=== PATIENT | male | born 1935 | race Caucasian/White ===

== ENCOUNTER → 2019-01-20 | Outpatient (CLI) | payer MEDICARE, OTHER ==
[~2019-01-20] MED LIST: ASPI-630 PO; CARV25TA2 PO; CRESTOR40 MG PO; CYCL10TA2 PO; EZET10TA20 PO; HYDR-2765 PO; LEVO75TA PO; MULT1TAB52 PO; OMEG-57 PO; RANO500T2 PO; UBID50TA PO; VALS160T3 PO; ZINC10LO4 PO
[2019-01-20 16:00] LABS: BASO % 0 % (0-3); EOS # 0.1 x10^3/uL (0.0-0.7); EOS % 2 % (0-3); HEMATOCRIT 38.7 % (39.0-53.0); HEMOGLOBIN 13.2 g/dL (13.0-17.5); LYMPH # 2.1 x10^3/uL (1.0-4.8); LYMPH % 27 % (24-48); MEAN CORPUSCULAR HEMOGLOBIN 34 pg (25-35); MEAN CORPUSCULAR HGB CONC 34 g/dL (31-37); MEAN CORPUSCULAR VOLUME 100 fL (79-100); MONO % 13 % (0-9); NEUT # 4.5 x10^3/uL (1.8-7.7); NEUT % 59 % (31-73); PLATELET COUNT 235 x10^3/uL (140-400); RED BLOOD COUNT 3.87 x10^6/uL (4.30-5.70); RED CELL DISTRIBUTION WIDTH 12.8 % (11.5-14.5); WHITE BLOOD COUNT 7.8 x10^3/uL (4.0-11.0)
[2019-01-20 16:26] LABS: ALBUMIN 2.4 g/dL (3.4-5.0); ALBUMIN/GLOBULIN RATIO 0.7 (1.0-1.7); CALCIUM 9.1 mg/dL (8.5-10.1); CREATININE 1.9 mg/dL (0.7-1.3); GFR 33.9; POTASSIUM 5.2 mmol/L (3.5-5.1); TOTAL BILIRUBIN 0.2 mg/dL (0.2-1.0); TOTAL PROTEIN 5.9 g/dL (6.4-8.2)
== END | disposition home or self-care (01) ==
LOC: SURGPAT 13:24
PROVIDERS: ATTEND Neurological Surgery
DX: Z01.818 Encounter for other preprocedural examination (principal); M51.16 Intervertebral disc disorders with radiculopathy, lumbar region; M48.061 Spinal stenosis, lumbar region without neurogenic claudication
CPT/HCPCS: 36415; 80053; 82306; 85025; 87641

== ENCOUNTER 2019-01-24 07:11 | Day surgery (SDC) | payer MEDICARE, OTHER ==
--- NOTE | 2019-01-23 15:06 | PREOP HP ---
DATE OF SERVICE: 01/24/2019. DATE OF SURGERY: 01/24/2019. HISTORY OF PRESENT ILLNESS: The patient is a pleasant 84-year-old who has problems with low back pain and pain which can radiate to his left anterior thigh and knee. The problem began in 08/2018 spontaneously. He has had epidural steroid injections recently and that helped him with his pain temporarily. He notices weakness in his left leg and is having difficulty with walking. Sitting does help him. He is taking Tylenol recently for pain. There is no problem on the right side. PAST MEDICAL HISTORY: Arthritis, artificial knees, cold sores and fever blisters, hypertension, kidney problems, swelling of the limbs. PAST SURGICAL HISTORY: Shoulder surgery 2000, knee replacement in 2004, cardiac catheterization with 4 stents in 2008, eye surgery in 2009, appendectomy in 1950, and cataract surgery. FAMILY HISTORY: Noncontributory. SOCIAL HISTORY: Retired. . Denies substance abuse. Current tobacco use. Denies alcohol consumption. ALLERGIES: No known drug allergies. CURRENT MEDICATIONS: Carvedilol, Crestor, Ranexa, losartan, levothyroxine, aspirin, fish oil, B12, CoQ10, zinc, Centrum, health formula glucosamine, and Tylenol. REVIEW OF SYSTEMS: A 12-point review of systems was obtained and is noncontributory except for that mentioned above. PHYSICAL EXAMINATION: NEUROSURGERY EXAMINATION: GENERAL APPEARANCE: Alert, pleasant, no acute distress. HEAD: Normocephalic, atraumatic. SKIN: Warm and dry. MUSCULOSKELETAL: Lumbar paraspinal muscle bulk is normal, restricted range of motion of lumbar spine, dhdz-pq-lsnnorvr tenderness of lower lumbar spine with palpation, normal range of motion of the lower extremities bilaterally. EXTREMITIES: No clubbing, cyanosis or edema. NEUROLOGIC: Alert and oriented x 3, normal recent and remote memory. Strength 5/5 in bilateral lower extremities except for 4+/5, left quadriceps, sensory was intact to light touch in bilateral lower extremities except for decrease in light touch involving the distal anterior thigh and knee on the left. Reflexes are trace and symmetric in lower extremities bilaterally, negative straight leg raising bilaterally, normal gait. IMAGING: I reviewed a lumbar MRI scan. On that study at L2-L3, there is a large disc bulge with left-sided disc protrusion and impingement of the left L3 nerve root. At L4-L5, there was spinal stenosis from disc bulging combined with facet arthropathy and thickening of the ligamentum flavum. ASSESSMENT: 1. Intervertebral disc disorder with radiculopathy, lumbar region. 2. Spinal stenosis, lumbar region with neurogenic claudication. PLAN: The patient has 2 levels of disease. I believe the problems at L2-L3 are most significant. At this point, my recommendation for surgery would be a left direct laminectomy, microdiscectomy at L2-L3 and a left laminectomy at L4-L5. I explained that to him. I also explained the risks of the surgery. I explained the postoperative period. He would like to go ahead. We will make the arrangements. ELOY GIBBS MD DR: TAYO/mukesh JOB#: [id number] / [id number] HEATHER
[~2019-01-24] VITALS: Ht 170.2 cm; Wt 80.9 kg
[~2019-01-24 07:11] MED LIST changes: +BACITRACIN 50,000 UNIT in IV NORMAL SALINE 1000ML BAG 1,000 ML IRR ONE; +BUPIVACAINE-EPI 0.5%-1:200000 MPF 30 ML VIAL. INJ ONE; +GELATIN SPONGE SIZE 100. ONE; +HYDROmorphone 2 MG/ML VIAL IV PRN; +IV RINGERS,LACTATED 1000ML 1,000 ML IV SCH; +KETOROLAC 60 MG/2 ML VIAL. ONE; +LIDOCAINE 1% PF 2 ML VIAL. ID PRN; +MORPHINE SULFATE 2 MG/ML VIAL. IV PRN; +ONDANSETRON PF 4 MG/2 ML VIAL. IV PRN; +PROCHLORPERAZINE 10 MG/2 ML VIAL. IV PRN; +THROMBIN TOPICAL 20,000 UNIT SPRAY.SYRN KIT TP ONE; +fentaNYL PF VIAL 100 MCG/2 ML VIAL IV PRN
[2019-01-24] MEDS ORDERED: DEXAMETHASONE SOD PHOS 20 MG/5 ML VIAL. ONE (08:02)
[2019-01-24] MEDS ORDERED: LIDOCAINE 2% PF 5 ML VIAL. ONE (08:02)
[2019-01-24] MEDS ORDERED: PROPOFOL 50 ML IV ONE ×2 (08:02→10:09)
[2019-01-24] MEDS ORDERED: ONDANSETRON PF 4 MG/2 ML VIAL. ONE (08:02)
[2019-01-24] MEDS ORDERED: ROCURONIUM 50 MG/5 ML VIAL. ONE (08:02)
[2019-01-24] MEDS ORDERED: fentaNYL PF VIAL 100 MCG/2 ML VIAL ONE (08:02)
[2019-01-24] MEDS ORDERED: REMIFENTANIL 2 MG VIAL. IV ONE (08:02)
[2019-01-24] MEDS ORDERED: PROPOFOL 20 ML IV ONE (08:02)
[2019-01-24] MEDS ORDERED: PHENYLEPHRINE 10 MG/ML VIAL. ONE ×2 (08:03→09:48)
[2019-01-24] MEDS ORDERED: GLYCOPYRROLATE 1 MG/5 ML VIAL. ONE (09:25)
[2019-01-24] MEDS ORDERED: NEOSTIGMINE METHYLSULFATE 5 MG/5 ML SYRINGE. ONE (11:02)
[2019-01-24] MEDS ORDERED: ePHEDrine PF IN SALINE 50 MG/10 ML SYRINGE. IV ONE (11:03)
[2019-01-24] MEDS ORDERED: DESFLURANE > 120 MINUTES IH ONE (11:03)
--- NOTE | 2019-01-24 11:38 | DISCH ---
DISCHARGE INSTRUCTIONS Condition on Discharge Condition on Discharge: Stable Activity After Discharge Activity Instructions for Disc: Activity as tolerated, Avoid exertion Other activity instructions: no driving for a week Bathing Instructions: Shower-keep dressing dry Lifting Instructions after Dis: No heavy lifting, No pulling or pushing, Do not lift >10 pounds Diet after Discharge Additional Diet Restrictions: resume home diet Wound Incision Care Other wound/incision instructi: may remove dressing in 48 hours if dry then may shower, no soaking Contacting the DRSukhjinder after DC Call your doctor for: Concerns you may have Follow-Up Follow up with: Dr. Gibbs's nurse in 2 weeks [phone] ELOY GIBBS MD Jan 24, 2019 11:37
--- NOTE | 2019-01-24 11:43 | OP ---
DATE OF SURGERY: 01/24/2019 PREOPERATIVE DIAGNOSES: 1. Herniated nucleus pulposus, left L2-L3 with left lumbar radiculopathy and stenosis. 2. Lumbar spinal stenosis, L4-L5. FINDINGS: At L2-L3, there was stenosis and a moderately large herniated disc on the left, which was removed at L4-L5, in addition to the stenosis that would be a left direct approach. There was a large bulging soft disc and this required a generous discectomy to fully decompress. OPERATION PERFORMED: 1. Hemilaminotomy and microdiscectomy with decompression of dura and nerve root, L2-L3. 1. Left direct laminectomy with lumbar microdiscectomy, L4-L5. The operation was done with EMG monitoring, SSEP monitoring, fluoroscopy, microscopic dissection. SURGEON: Scar Gibbs M.D. CONTRACT NEGOTIATOR: DAYTON Murcia assisted with the surgery. She assisted with the exposure, the 2-level decompression and discectomy as well as the closure. OPERATIVE INDICATIONS: The patient is a pleasant 84-year-old who developed intractable back and primarily left lower extremity pain. On imaging studies, he had above-mentioned findings and I recommended lumbar microsurgery. I spoke about surgery, the risks, technique and expected postoperative course and he wished to go ahead. DESCRIPTION OF PROCEDURE: Following general endotracheal anesthesia, the patient was positioned prone on the Sonny table. Lumbar region prepped and draped in standard fashion. NATHALIA hose and AV impulse boots were applied for DVT prophylaxis. The microscope was draped. Fluoroscopy was draped and brought into field. Monitoring was established. Ancef 2 grams was given less than 1 hour prior to initiation of surgery. Using fluoroscopic guidance, incision was made over the L2-L3 interspace. I dissected down through skin and subcutaneous tissue. I placed a [place]ley micro disc retractor, brought in the microscope. Using the high-speed air drill, I burred down a generous hemilaminotomy and then gently retracted the root. We then trimmed away thickened ligamentum flavum and performed a partial foraminotomy. I then gently retracted the root medially. There was a large herniated disc beneath the ligament and I teased back and removed multiple disc fragments and then entered the disc space and removed further disc and fully decompressed the entire region. At this point, then I did coagulate a few epidural veins. There was a small amount of bone wax and overall, the hemostasis was excellent. I irrigated copiously and then moved down to L4-L5 in a similar fashion. After confirming my positions, I placed a microdisk retractor. I used the microscope extensively and microscopic technique, I burred down a very generous hemilaminotomy, tilted the patient away from me and drilled across the midline and then trimmed away very thickened ligamentum flavum from medial to lateral and performed a generous partial foraminotomy. The dura was very well decompressed. However, when I retracted the root medially. There was a large bulging disc, which was quite soft and I incised the ligament annulus and performed a discectomy with pituitary rongeurs and as I worked, the region became much better decompressed. I did coagulate a few epidural veins. I irrigated copiously with antibiotic solution. There were no retained fragments. I felt that I had an excellent decompression at this level. I removed the retractor, obtained hemostasis in the muscle and then after irrigating closed the wound in layers with absorbable sutures. The skin was closed with 4-0 subcuticular stitch. At L2-L3, I irrigated copiously and closed the wound with absorbable sutures. After assuring myself of perfect hemostasis, skin was closed with 4-0 subcuticular stitch. The operation went very well and I was quite pleased with the surgery. SCAR GIBBS MD DR: TAYO/mukesh JOB#: [id number] / [id number] HEATHER
[2019-01-24 12:20] VITALS: BP 91/65
[2019-01-24] MEDS ORDERED: HYDROcodone/APAP 7.5/325MG 1 TAB TABLET PO ONE (12:30)
--- NOTE | 2019-01-28 11:07 | PATHOLOGY ---
[facility] Accession Number: [id number] . 01 Material submitted: . vertebral column - LUMBAR DISC AND DECOMPRESSION . 01 Clinical history: . Lumbar herniated disc with radiculopathy, stenosis . 02 Diagnosis: Lumbar disc: - Bone and fibrocartilage with degenerative change and calcification. - Negative for malignancy. ([place] [place] . Co-review: Dr. Supa TERRY 01/28/2019 1047 Local . 02 Electronically signed: . Kevon Emmanuel MD, Pathologist NPI- [id number] . 01 Gross description: . The specimen is received in formalin, labeled "Jean Lee, lumbar disc and decompression". Received are multiple segments of pink-garcia fibrous soft tissue measuring 6.2 x 5.8 x 0.9 cm in aggregate dimensions. The specimen is submitted representatively in cassette A1. ([facility]; 01/26/2019) QA/[facility] 01/26/2019 0959 Local . 02 Pathologist provided ICD-10: M51.16 . 02 CPT . 617421 Specimen Comment: A courtesy copy of this report has been sent to Specimen Comment: [phone], . Specimen Comment: Report sent to / DR WONG Performed at: 01 [facility] [address], [place], [place] [id number] MD Nirmal Langford MD Phone: [phone] Performed at: 02 [facility] [address], [place], [place] [id number] MD Jennifer Zamora MD Phone: [phone]
== END 2019-01-24 13:50 | disposition home or self-care (01) ==
LOC: SURG 07:11
PROVIDERS: ATTEND Neurological Surgery
DX: M51.16 Intervertebral disc disorders with radiculopathy, lumbar region (principal); M48.061 Spinal stenosis, lumbar region without neurogenic claudication; I10 Essential (primary) hypertension; Z96.659 Presence of unspecified artificial knee joint; Z98.890 Other specified postprocedural states; Z98.49 Cataract extraction status, unspecified eye; Z96.1 Presence of intraocular lens
CPT/HCPCS: 63030; 63035; 88304; 97116; 97162; 97530; A7015; J0171; J1100; J1885; J2001; J2405; J2704; J2710; J3010; J3490; J7030; 76000

== ENCOUNTER → 2019-06-27 | Outpatient (CLI) | payer MEDICARE, OTHER ==
[~2019-06-27] MED LIST changes: -BACITRACIN 50,000 UNIT in IV NORMAL SALINE 1000ML BAG 1,000 ML IRR ONE; -BUPIVACAINE-EPI 0.5%-1:200000 MPF 30 ML VIAL. INJ ONE; -GELATIN SPONGE SIZE 100. ONE; -HYDROmorphone 2 MG/ML VIAL IV PRN; -IV RINGERS,LACTATED 1000ML 1,000 ML IV SCH; -KETOROLAC 60 MG/2 ML VIAL. ONE; -LIDOCAINE 1% PF 2 ML VIAL. ID PRN; -MORPHINE SULFATE 2 MG/ML VIAL. IV PRN; -ONDANSETRON PF 4 MG/2 ML VIAL. IV PRN; -PROCHLORPERAZINE 10 MG/2 ML VIAL. IV PRN; -THROMBIN TOPICAL 20,000 UNIT SPRAY.SYRN KIT TP ONE; -fentaNYL PF VIAL 100 MCG/2 ML VIAL IV PRN
--- NOTE | 2019-06-27 13:41 | KCIC ---
MRI Lumbar Spine without contrast History: Lumbar radiculopathy, low back pain for a week, left radiculopathy, previous surgery Technique: Multiplanar, multi sequential noncontrast MR imaging was performed of the lumbar spine. Comparison: April 21, 2013 Findings: Lumbar vertebral body stature is unchanged other than more prominent inferior Schmorl's node L2, inferior L1 Schmorl's node similar in appearance. There is again advanced L5-S1 degenerative disc disease, advanced L4-5 degenerative disc disease somewhat increased in interval. There is dljt-ek-vwiakgtf degenerative disease at L1-L2 and to lesser degree at L2-3, minimally at L3-4. There is new inferior L2 endplate edema about Schmorl's node. There is degenerative endplate change at L5-S1, L4-5, and inferiorly of L1. Conus terminates at the superior aspect of what is considered T12. There is nonspecific edema of the posterior paraspinous soft tissues of the left abdomen in the subcutaneous fat. There is no significant fluid in the intervertebral disc spaces. There is amorphous, nonspecific edema of the posterior L5 vertebral body, although previously seen L5-S1 endplate edema has decreased. There is minimal posterior subluxation L5 relative to S1 as seen previously. There is infrarenal abdominal aortic aneurysm about 3.2 cm, fairly similar. There is small T2 hyperintense lesion left kidney about 0.8 cm, statistically most likely a cyst. T11-T12: This level was not included on the axial images. There is a very shallow posterior protrusion. There is facet degenerative change. There is mild attenuation of the thecal sac. T12-L1: This level was not included on the axial images. There is facet degenerative change. Spinal canal and the neural foramina are overall adequate. L1-L2: There is again minimal disc osteophyte complex and bulge. There is mild prominence of posterior epidural fat centrally, mild buckling of the ligamentum flavum, and nkln-mi-amcbfpso facet degenerative change. There is similar minimal narrowing of the left lateral recess from posteriorly. There is mild narrowing of the left neural foramen, right neural foramen adequate. L2-L3: There is now left laminectomy defect. There is again facet hypertrophic change. There is again moderate to severe buckling of the right ligamentum flavum. There is again broad disc osteophyte complex. There is residual mild to moderate narrowing of the right lateral recess from posteriorly, left lateral recess now overall adequate. Neural foramina are overall adequate. L3-L4: There is again rjim-rj-ttnmqujt facet degenerative change and buckling of the ligamentum flavum. There is again disc osteophyte complex and bulge. There is posterior annular tear. There is similar very mild narrowing of the far left lateral recess. There is minimal narrowing of the inferior distal left neural foramen by disc osteophyte complex, right neural foramen overall adequate. L4-L5: There is now broad left laminectomy defect, small fluid collection at site of laminectomy about 0.7 x 0.2 cm axial oblique dimensions by 0.7 cm cc. There is again facet hypertrophic change. There is mild buckling of the right ligamentum flavum. While overall central canal is now adequate, there is increased signal abnormality in the far left lateral recess presumably due to protrusion/contained extrusion superimposed on disc osteophyte complex, estimated about 0.8 cm AP by 0.8 cm CC by 0.8 cm transverse best seen sagittal images 5 and axial image 25. There is resultant severe left lateral recess stenosis and impingement and posterior displacement of the descending left L5 nerve root. Disc osteophyte complex and facet contributes to moderate to severe left and severe right neural foramina compromise, contact of the exiting L4 nerve roots greater on the right. There is also contact of the proximal extraforaminal right L4 nerve root. L5-S1: There is again disc osteophyte complex superimposed on the posteriorly subluxed L5 vertebral body margin, no significant displacement of the descending S1 nerve roots. There is again prominence of epidural fat in the lateral recesses bilaterally with preserved central subarachnoid space. There is mild bilateral facet degenerative change. There is again fairly severe neural foramina compromise bilaterally, greater distally on the left. Disc osteophyte complex contacts the undersurfaces of the exiting L5 nerve roots bilaterally somewhat greater on the right, also near the extraforaminal L5 nerve roots. Impression: 1. Comparing with the previous 2013 exam, there are now left laminectomy defects L2-3 and L4-5. There is focus of signal abnormality in the left lateral recess at L4-5 likely due to protrusion/contained extrusion with posterior displacement of the descending left L5 nerve root. There is zhca-ft-chqfcigu right lateral recess stenosis at L2-3 and very mild left lateral recess stenosis at L3-4 as described. 2. There is multilevel lumbar degenerative disc disease greatest at L4-5 and L5-S1. There is more prominent, somewhat edematous inferior L2 Schmorl's node. 3. There is multilevel lumbar neural foramina compromise, more significant narrowing bilaterally at L5-S1 and L4-5. 4. There is mild aneurysmal dilatation of the infrarenal abdominal aorta, estimated about 3.2 cm. Electronically signed by: Jered Tom MD (06/27/2019 1:38 PM) [facility]
--- NOTE | 2019-06-27 16:09 | KCIC ---
L-spine 2 views INDICATION: Lumbar radiculopathy on the left. COMPARISON: L-spine MRI of April 21, 2013 and June 27, 2019 FINDINGS: Flexion and extension views of the lumbar spine in the lateral projection show straightened lumbar spine without evidence of abnormal motion. Very subtle retrolisthesis of L3 on L4 is suggested that does not change with flexion or extension. Bones are osteopenic but no acute fractures or aggressive osseous lesions are seen. The discs show multilevel narrowing most conspicuous at L4-L5 and L5-S1. Bulky facet hypertrophic changes are present at multiple levels, likely resulting in varying degrees of foraminal narrowing. Soft tissues show arterial calcifications in the abdominal aorta. IMPRESSION: No evidence of abnormal motion with flexion or extension in the lumbar spine with multilevel degenerative changes noted. Electronically signed by: Ellie Cash MD (06/27/2019 4:06 PM) [id number]
== END | disposition home or self-care (01) ==
LOC: KCIC MRI 11:43
PROVIDERS: ATTEND Neurological Surgery
DX: M47.26 Other spondylosis with radiculopathy, lumbar region (principal); M51.16 Intervertebral disc disorders with radiculopathy, lumbar region; M47.818 Spondylosis without myelopathy or radiculopathy, sacral and sacrococcygeal region; M51.24 Other intervertebral disc displacement, thoracic region; M48.07 Spinal stenosis, lumbosacral region; M43.5X6 Other recurrent vertebral dislocation, lumbar region; M25.78 Osteophyte, vertebrae; M53.3 Sacrococcygeal disorders, not elsewhere classified; I77.811 Abdominal aortic ectasia; I70.0 Atherosclerosis of aorta; Z98.890 Other specified postprocedural states
CPT/HCPCS: 72100; 72148

== ENCOUNTER → 2019-07-16 | Outpatient (CLI) | payer MEDICARE, OTHER ==
[~2019-07-16] MED LIST changes: +ANTI1CAP5 PO; +CYAN500T17 PO; +GLUC-11 PO; +IOHEXOL 180 MG/ML 10 ML VIAL. ONE; +methylPREDNISolone ACETATE 40 MG/ML VIAL. ONE; +methylPREDNISolone ACETATE 80 MG/ML VIAL. ONE
--- NOTE | 2019-07-17 02:19 | PAIN ---
DATE OF SERVICE: 07/16/2019 INITIAL CONSULTATION FOR PAIN CLINIC CHIEF COMPLAINT: Back and left lower extremity pain. HISTORY OF PRESENT ILLNESS: This is an 84-year-old male who presents with history of pain in the low back and left lower extremity for about 1 month now spontaneously, without result of any specific injury or action he is aware of. The patient had lumbar laminectomy 01/2019 with a diskectomy at L4-L5 level on the left with very similar symptoms. The patient reports it was relieved 100% until the last month or so, the pain began to return fairly quickly radiating to posterior gluteus, posterolateral thigh, anterior thigh, anterior medial thigh, medial lower leg. The patient reports it is constant, aching, worse with walking, standing, changing positions, getting up from chairs, awaken him from sleep at least once a night, can affect his bowel and bladder control, but no incontinence. The patient reports some increased urgency with pain. The patient reports this does affect his ability to walk; however, is not using any assistive devices to ambulate; however, the patient has had recent treatment only with some stretching and strengthening as well as some Tylenol and Tylenol with Codeine, which does decrease the pain. No formal physical therapies recently over the past month. The patient rates his disability rating from 0-10, 10 being the worst, is a 7 with family home responsibilities and social activity, 9 with recreation, 6 with occupation, 5 with sexual behavior, self-care and 0 with life support activities. The patient did have a recent MRI scan of the lumbar spine dated 06/27/2019 showing laminectomy changes at L2-L3 and L4-L5 with a focus of signal abnormality in the left lateral recess, likely due to protrusion contained extrusion with posterior displacement of the descending left L5 nerve root. The patient reports no loss of function, but significant fatigability of the left leg with any walking, standing, changing positions, better with sitting or lying down, but again waking him from sleep at least once a night. PAST MEDICAL HISTORY: Significant for hearing loss, cataracts, hypertension, coronary artery disease with stents placed, arthritis in the knees, proteinuria. PREVIOUS SURGERY: Include right shoulder surgery in 2006, total knee replacement in 2004, bilateral cataract extractions, cardiac catheterization with 4 stents in 2008, eye surgery, appendectomy and lumbar laminectomy in 01/2019. CURRENT MEDICATIONS: Include glucosamine, eyedrops, vitamin B12, zinc, aspirin, carvedilol, rosuvastatin, Coenzyme Q10, fish oil, cyclobenzaprine and Crestor. ALLERGIES: The patient has no known drug allergies. FAMILY HISTORY: Significant for no major medical problems or conditions he is aware of. SOCIAL HISTORY: The patient does not drink alcohol, does not smoke. Denies any illegal, illicit or recreational drugs. He is , lives with his spouse, lives locally in [place], [place]. 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 REVIEW OF SYSTEMS: The patient's review of systems is positive for those items mentioned in history of present illness. All systems reviewed and otherwise negative. It is complete, full and well documented on the patient's chart. PHYSICAL EXAMINATION: VITAL SIGNS: The patient's blood pressure is 135/67, pulse 65, respirations are 12, temperature 97.7 degrees Fahrenheit, height is 5 feet 7 inches, weight is 173 pounds. GENERAL: The patient is awake, alert, oriented, appropriate, very pleasant demeanor. HEENT: Head shows normocephalic, atraumatic. Extraocular movements are intact and symmetrical. Oral cavity shows mucous membranes moist and pink. Dentition is intact. The patient is wearing eyeglasses. NECK: Shows anterior throat supple without palpable lymphadenopathy noted. Swallow reflex symmetrical. CHEST: Shows normal on inspection. Breath sounds clear to auscultation bilaterally. HEART: Shows S1, S2 clear. No murmurs auscultated. ABDOMEN: Soft, nontender, nondistended. No palpable organomegaly is noted. No rebound or guarding demonstrated. BACK: Shows spine grossly in the midline, normal-appearing cervical lordotic curvature, thoracic kyphotic curvature and minor flattening of lumbar lordotic curvature with midline surgical scarring noted. Lumbar paraspinous muscle shows symmetrical on inspection, with palpation shows some moderate tenderness diffusely bilaterally, but only diffusely without significant radiation. The patient has good rotational motion of lumbar spine, both laterally as well as extension and flexion without significant pain reported. No tenderness over the spinous processes, sacrum or sacroiliac regions with direct palpation. EXTREMITIES: Lower extremities show deep tendon reflexes at 2+ in the patellar, 1+ tendo-calcaneus tendons. Motor exam is strong with 5/5 dorsiflexion, extension, quadriceps and hamstring flexion and symmetrical bilaterally as well. Peripheral pulses are 1+ posterior tibial. Straight leg raise noted to be negative for reproduction of radicular symptoms. No edema is noted. Lower extremities are warm and dry to touch, equal in color and appearance. The patient is able to stand, stand on his toes without significant difficulty or loss of balance, walking with a normal appearing gait, does not appear to favor the right or left lower extremity significantly for short distance walking. Skin: Shows warm and dry, good turgor. No edema. No sores, rashes or bruising. IMPRESSION: 1. This is an 84-year-old male with approximate one month history of increasing pain, low back and into the left lower extremity in a radicular fashion. 2. MRI scan of lumbar spine as noted. 3. Arthritis. 4. Hypertension. PLAN: Options were discussed with the patient including conservative medical managements, physical therapies and interventional techniques. He would like to pursue interventional techniques. We discussed a lumbar epidural steroid injection using description as well as anatomical models to describe the procedure. Risks were then discussed including, but not limited to bleeding, infection, possibility of epidural hematoma, subsequent neurological compromise, dural puncture, headaches, spinal cord and/or nerve damage, side effects of steroid medication and poor results regarding pain control. The patient understands and wished to proceed. The patient will return to clinic in approximately 2 weeks for followup. He was counseled on return appointment, activity level and side effects to be aware of. DIAGNOSES: Lumbar radiculopathy with lumbar degenerative disk disease with lumbar herniated disk and lumbar post-laminectomy syndrome. PROCEDURE: Lumbar epidural steroid injection, translaminar approach at the L5-S1 level using C-arm fluoroscopic guidance under sterile prep and drape using local anesthetic. MEDICATION INJECTED: A total of 120 mg Depo-Medrol plus 10 mL of preservative-free normal saline and 2 mL of contrast. CONDITION AT DISCHARGE: Stable. The patient tolerated the procedure well, had no complications. MOISES GUTIÉRREZ MD DR: MARCELINO/mukesh JOB#: [id number] / [id number]
== END ==
LOC: PNCL 10:47
PROVIDERS: ATTEND Anesthesiology
DX: M51.16 Intervertebral disc disorders with radiculopathy, lumbar region (principal); M96.1 Postlaminectomy syndrome, not elsewhere classified; I10 Essential (primary) hypertension; I25.10 Atherosclerotic heart disease of native coronary artery without angina pectoris; Z87.39 Personal history of other diseases of the musculoskeletal system and connective tissue; Z98.42 Cataract extraction status, left eye; Z98.41 Cataract extraction status, right eye; Z96.659 Presence of unspecified artificial knee joint; Z98.890 Other specified postprocedural states; Z96.1 Presence of intraocular lens
CPT/HCPCS: 62323; J1030; J1040; Q9965

== ENCOUNTER → 2019-07-30 | Outpatient (CLI) | payer MEDICARE, OTHER ==
[~2019-07-30] MED LIST changes: +ACET-1871 PO
--- NOTE | 2019-07-30 12:17 | PAIN ---
DATE OF SERVICE: 07/30/2019 PROGRESS NOTE FOR PAIN CLINIC DIAGNOSES: Lumbar radiculopathy with lumbar degenerative disk disease with lumbar herniated disk and lumbar post-laminectomy syndrome. HISTORY OF PRESENT ILLNESS: The patient is an 84-year-old male who returns for followup status post lumbar epidural steroid injection x 1. The patient reports no significant decrease in pain after the first injection, still pain in the low back, left lower extremity, posterior gluteus, posterior thigh to the level of the knee and into the medial calf on the left side as well. The patient reports it is worse with walking, standing, changing positions, better with sitting or lying down, does not awaken him from sleep at night, when he first gets up though, pain is at its most severe with pain in the left leg as described. The patient reports it is sharp, stabbing, becoming more constant. The patient reports it is 7 on a scale of 10 at all times, average, worst and its least and is a 7 today. The patient reports no new motor or sensory deficits, no new bowel or bladder incontinence, still significant pain with any activity and while he is getting along fairly well, he is not able to do any activities that he would like to except for very minimal walking and sitting. PHYSICAL EXAMINATION: VITAL SIGNS: The patient's blood pressure 142/76, pulse 74, respirations 16, temperature 98.2 degrees Fahrenheit, weight is 168 pounds. GENERAL: The patient is awake, alert, oriented, appropriate, very pleasant demeanor. HEENT: Head shows normocephalic, atraumatic. Extraocular movements are intact and symmetrical. Oral cavity, mucous membranes intact. NECK: Shows anterior throat supple without palpable lymphadenopathy noted. Swallow reflex symmetrical. CHEST: Shows normal on inspection. Breath sounds are clear bilaterally. HEART: Shows S1, S2 clear. ABDOMEN: Soft, nontender, nondistended. No palpable organomegaly is noted. No rebound or guarding demonstrated. BACK: Shows spine grossly in the midline. Normal appearing thoracic kyphosis, some minor flattening of lumbar lordotic curvature. Well-healed midline surgical scarring. Lumbar paraspinous muscle shows symmetrical on inspection, on palpation shows some moderate tenderness diffusely in the low lumbar distribution, but only diffusely without significant radiation. The patient has good rotational motion of lumbar spine, both laterally as well as extension and flexion without significant pain. EXTREMITIES: Lower extremities show deep tendon reflexes at 2+ in the patellar, 1+ tendo-calcaneus tendons. Motor exam is 5/5 with dorsiflexion, extension, quadriceps and hamstring flexion symmetrical. Peripheral pulses are 1+ posterior tibia. No peripheral edema is noted. Options were discussed with the patient. The patient's old chart was reviewed as his current medication regimen updated. Current review of systems updated today as well. We will proceed with a second in the series of lumbar epidural steroid injection today with fluoroscopic guidance. Risks were again discussed including, but not limited to bleeding, infection, possibility of epidural hematoma, subsequent neurological compromise, dural puncture, headaches, spinal cord and/or nerve damage, side effects of steroid medication and poor results regarding pain control. The patient understands and wished to proceed. The patient will return to clinic in approximately 2 weeks for followup. He was counseled on return appointment, activity level and side effects to be aware of. DIAGNOSES: Lumbar radiculopathy with lumbar degenerative disk disease, lumbar herniated disk and lumbar post-laminectomy syndrome. PROCEDURE: Lumbar epidural steroid injection, translaminar approach at the L4-L5 level using C-arm fluoroscopic guidance under sterile prep and drape using local anesthetic. MEDICATION INJECTED: A total of 120 mg Depo-Medrol plus 10 mL of preservative-free normal saline and 2 mL of contrast. CONDITION AT DISCHARGE: Stable. The patient tolerated procedure well, had no complications. MOISES GUTIÉRREZ MD DR: MARCELINO/mukesh JOB#: [id number] / [id number]
== END ==
LOC: PNCL 10:31
PROVIDERS: ATTEND Anesthesiology
DX: M51.16 Intervertebral disc disorders with radiculopathy, lumbar region (principal); M96.1 Postlaminectomy syndrome, not elsewhere classified
CPT/HCPCS: 62323; J1030; J1040; Q9965

== ENCOUNTER → 2019-08-13 | Outpatient (CLI) | payer MEDICARE, OTHER ==
--- NOTE | 2019-08-13 10:41 | PAIN ---
DATE OF SERVICE: 08/13/2019 PROGRESS NOTE FOR PAIN CLINIC DIAGNOSES: Lumbar radiculopathy with lumbar degenerative disk disease, lumbar herniated disk and lumbar post-laminectomy syndrome. The patient is an 84-year-old male who returns for followup status post lumbar epidural steroid injections x 2, most recently 07/30/2019. The patient did very well with about 50% improvement after the last injection. The patient reports it is getting better slowly with the pain in the low back and left lower extremity with increased activity with greater ease and comfort, has been quite active with some warmer weather lately, doing some chainsawing with some trees yesterday and so forth. The patient reports the pain is better, he does not have any use of cane in the morning as he did originally and is getting around fairly well, increased his activity walking, work activities as well as home activities around the house. The patient reports it is an 8 on a scale of 10 at its worst over the past week, 5 on average, 5 at its least and is a 5 today. The patient reports pain in the low back, posterior gluteus, posterior lateral thigh, anterior thigh, anterior medial thigh and posterior calf on the left side with tingling and aching quality, no new motor or sensory deficits, no new bowel or bladder incontinence. The patient reports it does not awaken him from sleep at night. He can get into a position on his left side when he is sleeping where he has no pain. PHYSICAL EXAMINATION: VITAL SIGNS: The patient's blood pressure is 140/69, pulse is 73, respirations 18, temperature is 98.3 degrees Fahrenheit, weight is 171 pounds. GENERAL: The patient is awake, alert, oriented, appropriate, very pleasant demeanor. HEENT: Head shows normocephalic, atraumatic. Extraocular movements are intact and symmetrical. Oral cavity: Mucous membranes moist and pink. Dentition is intact. NECK: Shows anterior throat supple without palpable lymphadenopathy noted. Swallow reflex symmetrical. CHEST: Shows normal on inspection. Breath sounds are clear bilaterally. HEART: Shows S1, S2 clear. No murmurs auscultated. ABDOMEN: Soft, nontender, nondistended. BACK: Shows spine grossly in the midline. Normal-appearing thoracic kyphosis and flattening of lumbar lordotic curvature with well-healed surgical scar in the midline. Lumbar paraspinous muscle shows symmetrical on inspection, on palpation shows some moderate tenderness diffusely bilaterally, but only diffusely without significant radiation. The patient has good rotational motion of lumbar spine both laterally as well as in extension and flexion without significant increase in pain. EXTREMITIES: The patient's lower extremities show deep tendon reflexes 2+ in the patellar, 1+ tendo-calcaneus tendons. Motor exam is strong with 5/5 dorsiflexion, extension, quadriceps and hamstring flexion and symmetrical. Peripheral pulses are 1+. No peripheral edema bilaterally. Options were discussed with the patient. The patient's old chart was reviewed as his current medication regimen updated. Current review of systems updated today as well. We will proceed with a third in a series of lumbar epidural steroid injection today with fluoroscopic guidance. Risks were again discussed including, but not limited to bleeding, infection, possibility of epidural hematoma, subsequent neurological compromise, dural puncture, headaches, spinal cord and/or nerve damage, side effects of steroid medication and poor results regarding pain control. The patient understands and wished to proceed. The patient will return to clinic in approximately 2 weeks for followup. He was counseled on his return appointment, activity level and side effects to be aware of. DIAGNOSIS: Lumbar radiculopathy with lumbar degenerative disk disease with lumbar herniated disk. PROCEDURE: Lumbar epidural steroid injection, translaminar approach at the L4-L5 level using C-arm fluoroscopic guidance under sterile prep and drape using local anesthetic. MEDICATION INJECTED: A total of 120 mg Depo-Medrol plus 10 mL of preservative-free normal saline and 2 mL of contrast. CONDITION AT DISCHARGE: Stable. The patient tolerated procedure well, had no complications. MOISES GUTIÉRREZ MD DR: MARCELINO/mukesh JOB#: [id number] / [id number]
== END ==
LOC: PNCL 08:44
PROVIDERS: ATTEND Anesthesiology
DX: M51.16 Intervertebral disc disorders with radiculopathy, lumbar region (principal); M96.1 Postlaminectomy syndrome, not elsewhere classified
CPT/HCPCS: 62323; J1030; J1040; Q9965

== ENCOUNTER → 2020-06-01 | Outpatient (CLI) | payer MEDICARE, OTHER ==
[~2020-06-01] MED LIST changes: +ASCO500C PO; +CARV12.511 PO; +CYAN25003 SL; +DOCU-109 PO; +HYDR-2759 PO; +HYDR12.59 PO; -IOHEXOL 180 MG/ML 10 ML VIAL. ONE; -LEVO75TA PO; +LEVO75TA90 PO; +MULT-445 PO; -MULT1TAB52 PO; +ZINC50TA39 PO; -methylPREDNISolone ACETATE 40 MG/ML VIAL. ONE; -methylPREDNISolone ACETATE 80 MG/ML VIAL. ONE
--- NOTE | 2020-06-01 17:26 | KCIC ---
MR LUMBAR SPINE WO [id number] History: Reason: LUMBAR RADICULOPATHY / Spl. Instructions: No contrast due to renal insufficiency. / History: Prior surgery 2019. New left lower back pain in 2020 without relief. Technique: Multiplanar, multi sequential MR imaging was performed of the lumbar spine. Comparison: June 27, 2019 Findings: Normal vertebral body height and alignment. No fracture. Congenitally small spinal canal. Degenerativ e endplate edema increased at L2-L3 and L4-L5. Conus terminates at the normal location. No evidence of nerve root clumping. Previously identified failed no aortic aneurysm is not well characterized on the current examination due to fat saturation band anteriorly. T11-T12: Broad-based disc bulge. Mild canal narrowing. Mild facet arthropathy. No neuroforaminal narr owing. T12-L1: Small disc bulge. Mild facet arthropathy. No canal or neuroforaminal narrowing. L1-L2: Broad-based disc bulge. Mild canal narrowing. Mild facet arthropathy. No neuroforaminal narro wing. L2-L3: Posterior disc osteophyte complex. Moderate canal narrowing, unchanged. Severe subarticular r ecess narrowing. Moderate facet arthropathy. Mild bilateral neuroforaminal narrowing. L3-L4: Broad-based disc bulge with central annular fissure. Mild canal narrowing. Moderate subarticu lar recess. Moderate facet arthropathy. Mild bilateral neuroforaminal narrowing. L4-L5: Broad-based disc bulge with superimposed left subarticular disc extrusion increased compared to prior. Moderate canal narrowing increased compared to prior. Severe left subarticular recess narro wing with displacement of the left descending L5 nerve root. Postoperative changes left hemilaminecto my. Additional superimposed right foraminal disc protrusion. Severe right and moderate to severe left neuroforaminal narrowing. L5-S1: Disc bulge. Mild facet arthropathy. Subarticular recess narrowing with abutment of the bilate ral descending S1 nerve roots. No canal narrowing. Moderate bilateral neuroforaminal narrowing. Impression: 1. Moderate multilevel lumbar spondylosis most prominent L2-L3 and L4-L5. 2. Increased L4-5 left subarticular disc extrusion contributing to moderate canal narrowing and jennifer re left subarticular recess narrowing with displacement of the left descending L5 nerve root. Correla te for radiculopathy. 3. Moderate L2-L3 canal narrowing, unchanged. 4. Increased degenerative endplate edema L2-L3 and L4-5. 5. Multilevel neuroforaminal narrowing most prominent L4-L5 and L5-S1, unchanged. Electronically signed by: Jhoan Sarabia DO (06/01/2020 5:24 PM) [id number]
== END ==
LOC: KCIC MRI 15:06
PROVIDERS: ATTEND Neurological Surgery
DX: M47.26 Other spondylosis with radiculopathy, lumbar region (principal); M48.061 Spinal stenosis, lumbar region without neurogenic claudication
CPT/HCPCS: 72148

== ENCOUNTER → 2020-06-10 | Outpatient (CLI) | payer MEDICARE, OTHER ==
--- NOTE | 2020-06-10 13:44 | EKG ---
[facility] [address] [place] [address] Test Date: 2020-06-10 Test Time: 13:40:20 Pat Name: ANKIT CORDOVA Department: Room: Gender: Solder Technician: JOON : 1935 Requested By: ELOY GIBBS Order Number: [id number] Reading MD: Dereck Lassiter Measurements Intervals Sharon Rate: 73 P: 34 CO: 164 QRS: 18 QRSD: 82 T: 77 QT: 416 QTc: 462 Interpretive Statements SINUS RHYTHM NORMAL ECG RI6.02 No previous ECG available for comparison Electronically Signed On 06-11-2020 10:22:34 [employer] by Dereck Lassiter
== END ==
LOC: SURGPAT 12:47
PROVIDERS: ATTEND Neurological Surgery
DX: Z01.812 Encounter for preprocedural laboratory examination (principal); Z20.822 Contact with and (suspected) exposure to COVID-19; M54.5 Low back pain; M51.16 Intervertebral disc disorders with radiculopathy, lumbar region
CPT/HCPCS: 87641; 93005; U0003

== ENCOUNTER 2020-06-16 10:16 | Day surgery (SDC) | payer MEDICARE, OTHER ==
--- NOTE | 2020-06-15 14:35 | PREOP HP ---
DATE OF SERVICE: 06/16/2020 PREOPERATIVE HISTORY AND PHYSICAL DATE OF ADMISSION: 06/16/2020 HISTORY OF PRESENT ILLNESS: The patient is a pleasant 85-year-old man who was having increased problems with low back and left leg pain. He says most of the pain is in the anterior thigh to his knee and in the anterior leg to the dorsum of his left foot. The pain became much more severe about 4 months ago. He says currently his pain is severe in the morning and as he walks, it can improve slightly. Standing makes the problem worse. Sitting is more comfortable for him. He is taking Tylenol twice a day. He did have epidural steroid injections in 08/2019 without significant benefit. He uses a cane or walker to help him. He did undergo lumbar microsurgery at L2-L3 on the left and at L4-L5 in 01/2019 and did well following that surgery. PAST MEDICAL HISTORY: Arthritis, artificial knee, hypertension, kidney disease. PAST SURGICAL HISTORY: Shoulder surgery in 2000; knee replacement; cardiac catheterization with stents; eye surgery; appendectomy; cataract surgery; microdiskectomy L2-L3, left; laminectomy L4-L5 in 01/2019. CURRENT MEDICATIONS: Coreg, Crestor, Ranexa, valsartan, levothyroxine, aspirin, fish oil, B12, Coenzyme Q10, zinc, Centrum, glucosamine, Tylenol. ALLERGIES: No known drug allergies. SOCIAL HISTORY: Retired, , does not smoke or drink alcohol. REVIEW OF SYSTEMS: A 12-point review of systems was performed and is noncontributory except that mentioned above. PHYSICAL EXAMINATION: GENERAL: Alert, pleasant, in no acute distress. HEAD: Normocephalic, atraumatic. SKIN: Warm and dry, well-healed lumbar incision. MUSCULOSKELETAL: Lumbar paraspinal muscle bulk is normal, restricted range of motion of the lumbar spine, [id number] tenderness of the lower lumbar spine with palpation, normal range of motion of the lower extremities bilaterally. EXTREMITIES: No clubbing, cyanosis or edema. NEUROLOGIC: Alert and oriented x 3. Strength is 5/5 in the bilateral lower extremities, sensory was intact in the lower extremities with light touch except for a slight decrease in light touch involving the anterior lateral thigh and leg on the left, reflexes were trace and symmetric in the lower extremities bilaterally, positive straight leg raising on the left, negative straight leg raising on the right, ambulates with a cane. IMAGING: I reviewed a lumbar MRI scan. On that study, there are postoperative changes at L2-L3 and L4-L5. At L4-L5, there was a moderately large subarticular disc extrusion on the left, which has enlarged when compared to previous study from 06/2019. ASSESSMENT AND PLAN: Most likely, the disc herniation, which is enlarging at L4-L5 is responsible for his pain. At this point, he has failed to improve with conservative measures including epidural steroid injections and time. I recommended reoperative lumbar microdiscectomy at L4-L5 on the left to see if this would help him. I did discuss with him the technique, risk and expected postoperative course. He understands and would like to go ahead. ELOY GIBBS MD DR: HERMINIO/mukesh JOB#: [id number] / [id number] HEATHER
[~2020-06-16] VITALS: Ht 170.2 cm; Wt 77.1 kg
[~2020-06-16 10:16] MED LIST changes: +BACITRACIN 50,000 UNIT in IV NORMAL SALINE 1000ML BAG 1,000 ML IRR ONE; +BUPIVACAINE-EPI 0.5% 30 ML VIAL KIT. ONE; -DOCU-109 PO; +GELATIN SPONGE SIZE 100. ONE; -HYDR-2759 PO; +HYDROmorphone 2 MG/ML VIAL IVP PRN; +KETOROLAC 60 MG/2 ML VIAL. ONE; +LIDOCAINE 2% PF 5 ML VIAL. ONE; +MORPHINE SULFATE 2 MG/ML VIAL. IVP PRN; +ONDANSETRON PF 4 MG/2 ML VIAL. ONE; +PHENYLEPHRINE in 0.9% NACL PF 1 MG/10 ML SYRINGE. IV ONE; +PROCHLORPERAZINE 10 MG/2 ML VIAL. IVP PRN; +PROPOFOL 10 MG/ML (20ML) VIAL. IV ONE; +PROPOFOL 50 ML IV ONE; +ROCURONIUM 50 MG/5 ML VIAL. ONE; +THROMBIN TOPICAL 20,000 UNIT SPRAY.SYRN KIT TP ONE; +ePHEDrine PF IN SALINE 50 MG/10 ML SYRINGE. IV ONE; +fentaNYL PF VIAL 100 MCG/2 ML VIAL IVP PRN
[2020-06-16] MEDS ORDERED: REMIFENTANIL 2 MG VIAL. IV ONE (10:46)
[2020-06-16] MEDS: IV RINGERS,LACTATED 1000ML 1,000 ML IV SCH ×2 (10:50→14:58)
[2020-06-16] MEDS ORDERED: DESFLURANE > 120 MINUTES IH ONE (11:52)
[2020-06-16] MEDS ORDERED: fentaNYL PF VIAL 100 MCG/2 ML VIAL ONE (11:53)
[2020-06-16] MEDS ORDERED: PHENYLEPHRINE 10 MG/ML VIAL. ONE ×2 (12:53)
[2020-06-16] MEDS ORDERED: NEOSTIGMINE METHYLSULFATE 5 MG/5 ML SYRINGE. ONE (14:38)
[2020-06-16] MEDS ORDERED: HYDR-2759 PO (14:38)
[2020-06-16] MEDS ORDERED: DOCU-109 PO (14:38)
[2020-06-16] MEDS ORDERED: GLYCOPYRROLATE 1 MG/5 ML VIAL. ONE (14:38)
--- NOTE | 2020-06-16 14:39 | DISCH ---
DISCHARGE INSTRUCTIONS Condition on Discharge Condition on Discharge: Stable Activity After Discharge Activity Instructions for Disc: Activity as tolerated, Avoid exertion Other activity instructions: no driving for a week Bathing Instructions: Shower-keep dressing dry Lifting Instructions after Dis: No heavy lifting, No pulling or pushing, Do not lift >10 pounds Diet after Discharge Additional Diet Restrictions: resume home diet Wound Incision Care Wound/Incision Care: Ice to area for comfort Other wound/incision instructi: may remove dressing in 48 hours if dry, no soaking Wound Care Equipment: Sutures/iraj Contacting the after DC Call your doctor for: Concerns you may have Follow-Up Follow up with: Dr. Gibbs's nurse in 2 weeks [phone] ELOY GIBBS MD Jun 16, 2020 14:39
--- NOTE | 2020-06-16 14:56 | OP ---
DATE OF SURGERY: 06/16/2020 PREOPERATIVE DIAGNOSES: Recurrent herniated lumbar disc, L4-L5, left with severe left lumbar radiculopathy. POSTOPERATIVE DIAGNOSES: Recurrent herniated lumbar disc, L4-L5, left with severe left lumbar radiculopathy. OPERATION PERFORMED: Reop hemilaminotomy and microdiscectomy L4-L5, left. The operation was done with EMG monitoring, SSEP monitoring, fluoroscopy, microscopic dissection. SURGEON: Scar Gibbs M.D. FAGOTING MACHINE OPERATOR: DAYTON Murcia assisted with the surgery. She assisted with the exposure, the microdecompression, microdiscectomy as well as the closure. OPERATIVE INDICATIONS: The patient is a pleasant 85-year-old man who developed severe intractable back and left leg pain and was found to have a large recurrent disc and was followed for a considerable time with conservative measures. The problem was slowly worsened and surgery was suggested that he wished to go ahead. He understood the operation, the risks of the surgery as well as potential benefits and he wanted to go ahead with surgery. DESCRIPTION OF PROCEDURE: Following general endotracheal anesthesia, the patient was positioned prone on the Sonny table. Lumbar region prepped and draped in the standard fashion. NATHALIA hose and AV impulse boots were applied for DVT prophylaxis. A microscope was draped. Fluoroscopy was draped and brought into the field. Monitoring was established. Ancef 2 grams was given less than 1 hour prior to initiation of the surgery. Using fluoroscopic guidance, incision was made directly over the L4-L5 interspace. I dissected down through skin and subcutaneous tissue, reflected the paraspinal muscles using sharp curettes to help create the exposure and exposed the bone and placed a self-retaining microdisc retractor, I brought in the microscope and the remainder of surgery done with microscope using microscopic technique. I drilled the bone over the medial aspect of the foramen and opened laterally from this to expose the lateral edge of the dura. I followed the L5 root as it passed out into the foramen and trimmed more bone over this region. I then worked superiorly and created an exposure and I could palpate the bulging disc and I incised this and then I performed discectomy with pituitary rongeurs. I then worked medially with a blunt hook and removed two large subligamentous disc fragments. As I worked, the area became very well decompressed and the nerve became quite mobile. I irrigated copiously, explored carefully. There were no other disc fragments and the discectomy was generous and complete. I irrigated with antibiotic solution. I removed the retractor, obtained hemostasis in the muscle and I closed the wound in layers after further irrigation. The skin was closed with skin iraj. The operation went very well. SCAR GIBBS MD DR: TAYO/mukesh JOB#: [id number] / [id number] HEATHER
[2020-06-16] MEDS ORDERED: HYDROcodone/APAP 5/325MG 1 TAB TABLET PO ONE ×2 (15:15)
[2020-06-16 15:52] VITALS: BP 152/86
--- NOTE | 2020-06-21 14:10 | PATHOLOGY ---
[facility] Accession Number: [id number] . 01 Material submitted: . back - LUMBAR DISC AND DECOMPRESSION . 02 Diagnosis: Segments of fibrocartilaginous tissue and bone, lumbar disc and decompression: - Degenerative changes of fibrocartilaginous tissue. (JPM:john; 06/21/2020) S 06/21/2020 1132 Local . 02 Comment: There is no evidence of an acute inflammatory process or malignancy. (JPM:john; 06/21/2020) . 02 Electronically signed: . Claudio Bo MD, Pathologist NPI- [id number] . 01 Gross description: . The specimen is received in formalin, labeled "Jean Dawsonf, lumbar disc and decompression". Received are multiple segments of light garcia gritty tissue admixed with fragments of bone measuring 4.0 x 3.3 x 1.1 cm in aggregate dimensions. The specimen is filtered and submitted representatively in cassette A1, following light decalcification. (CAA; 06/18/2020) QAC/QAC 06/18/2020 1131 Local . 02 Pathologist provided ICD-10: M51.36 . 02 CPT . 450713, 564472 Specimen Comment: A courtesy copy of this report has been sent to [phone] Specimen Comment: Report sent to Performed at: 01 [facility] [address], [place] [id number] MD Tano Drake MD Phone: [phone] Performed at: 02 [facility] [address] [place], [place] [id number] MD Claudio Bo MD Phone: [phone]
== END 2020-06-16 16:50 | disposition home or self-care (01) ==
LOC: SURG 10:16
PROVIDERS: ATTEND Neurological Surgery
DX: M51.16 Intervertebral disc disorders with radiculopathy, lumbar region (principal); I25.10 Atherosclerotic heart disease of native coronary artery without angina pectoris; I10 Essential (primary) hypertension; E78.00 Pure hypercholesterolemia, unspecified; K21.9 Gastro-esophageal reflux disease without esophagitis; E03.9 Hypothyroidism, unspecified; M19.90 Unspecified osteoarthritis, unspecified site; Z79.899 Other long term (current) drug therapy; Z98.890 Other specified postprocedural states; Z79.82 Long term (current) use of aspirin; Z87.891 Personal history of nicotine dependence
CPT/HCPCS: 63042; 88304; 88311; 97116; 97162; 97530; J0690; J1885; J2370; J2405; J2704; J2710; J3010; J3490; J7030; J7120; 76000

== ENCOUNTER 2020-12-10 08:15 | Outpatient (CLI) | payer MEDICARE, OTHER ==
[2020-12-10] VITALS (7 sets, daily range): BP systolic 98–150; BP diastolic 47–80
[~2020-12-10] VITALS: Ht 170.2 cm; Wt 71.0 kg
[~2020-12-10 08:15] MED LIST changes: -BACITRACIN 50,000 UNIT in IV NORMAL SALINE 1000ML BAG 1,000 ML IRR ONE; -BUPIVACAINE-EPI 0.5% 30 ML VIAL KIT. ONE; +DOCU-109 PO; -GELATIN SPONGE SIZE 100. ONE; +HYDR-2759 PO; -HYDROmorphone 2 MG/ML VIAL IVP PRN; -KETOROLAC 60 MG/2 ML VIAL. ONE; -LIDOCAINE 2% PF 5 ML VIAL. ONE; -MORPHINE SULFATE 2 MG/ML VIAL. IVP PRN; -ONDANSETRON PF 4 MG/2 ML VIAL. ONE; -PHENYLEPHRINE in 0.9% NACL PF 1 MG/10 ML SYRINGE. IV ONE; -PROCHLORPERAZINE 10 MG/2 ML VIAL. IVP PRN; -PROPOFOL 10 MG/ML (20ML) VIAL. IV ONE; -PROPOFOL 50 ML IV ONE; -ROCURONIUM 50 MG/5 ML VIAL. ONE; -THROMBIN TOPICAL 20,000 UNIT SPRAY.SYRN KIT TP ONE; -ePHEDrine PF IN SALINE 50 MG/10 ML SYRINGE. IV ONE; -fentaNYL PF VIAL 100 MCG/2 ML VIAL IVP PRN
[2020-12-10] MEDS ORDERED: LIDOCAINE 1%/EPI 1:100,000 20 ML VIAL. ONE (08:54)
[2020-12-10 09:01] LABS: BASO % 0 % (0-3); EOS # 0.1 x10^3/uL (0.0-0.7); EOS % 1 % (0-3); HEMATOCRIT 34.8 % (39.0-53.0); HEMOGLOBIN 11.7 g/dL (13.0-17.5); LYMPH # 1.9 x10^3/uL (1.0-4.8); LYMPH % 17 % (24-48); MEAN CORPUSCULAR HEMOGLOBIN 34 pg (25-35); MEAN CORPUSCULAR HGB CONC 34 g/dL (31-37); MEAN CORPUSCULAR VOLUME 102 fL (79-100); MONO # 1.3 x10^3/uL (0.0-1.1); MONO % 11 % (0-9); NEUT # 8.2 x10^3/uL (1.8-7.7); NEUT % 71 % (31-73); PLATELET COUNT 275 x10^3/uL (140-400); RED BLOOD COUNT 3.41 x10^6/uL (4.30-5.70); RED CELL DISTRIBUTION WIDTH 12.7 % (11.5-14.5); WHITE BLOOD COUNT 11.6 x10^3/uL (4.0-11.0)
[2020-12-10 09:09] LABS: CALCIUM 8.4 mg/dL (8.5-10.1); CREATININE 4.4 mg/dL (0.7-1.3); GFR 12.8; POTASSIUM 3.3 mmol/L (3.5-5.1); PROTHROMBIN TIME PATIENT 12.2 SEC (11.7-14.0)
[2020-12-10] MEDS ORDERED: fentaNYL PF VIAL 100 MCG/2 ML VIAL ONE (09:42)
[2020-12-10] MEDS ORDERED: MIDAZOLAM HCL/PF 2 MG/2 ML VIAL. ONE (09:42)
[2020-12-10] MEDS ORDERED: fentaNYL PF VIAL 100 MCG/2 ML VIAL IV ONE (09:45)
[2020-12-10] MEDS ORDERED: MIDAZOLAM HCL/PF 2 MG/2 ML VIAL. IV ONE (09:45)
[2020-12-10] MEDS ORDERED: LIDOCAINE 1%/EPI 1:100,000 20 ML VIAL. SQ ONE (09:45)
--- NOTE | 2020-12-10 09:59 | RAD ---
EXAM: AP View of the chest DATE: 12/10/2020 9:20 AM INDICATION: CHRONIC KIDNEY DISEASE COMPARISON: No Prior FINDINGS: The heart is not enlarged. Mediastinal and hilar contours are normal. No focal parenchymal airspace opacity. No pleural effusion or pneumothorax. IMPRESSION: 1. No radiographic evidence for acute cardiopulmonary process. Electronically signed by: Ronn Bryant MD (12/10/2020 9:56 AM) [id number]
--- NOTE | 2020-12-10 10:46 | RAD ---
12/10/2020 Procedure: Tunneled hemodialysis catheter placement Clinical Indication: End-stage renal failure Sedation: Conscious sedation was administered for 30 minutes. The patient was monitored by a [facility] ed independent observer throughout the time of sedation. Please refer to the medical record for exac t doses of medications utilized to achieve moderate sedation. Fluoro Time: 1 minute Dose area product: 2 Meadows centimeter squared Sterility: All elements of maximal sterile barrier technique including the use of a cap, mask, steril e gown, sterile gloves, large sterile sheet, appropriate hand hygiene, and 2% chlorhexidine for cutan eous antisepsis (or acceptable alternative antiseptic per current guidelines) were followed for this procedure. Consent: The procedure was explained in its entirety to the patient or the patients designated repres entative by a member of the treatment team, including a discussion of the risks, benefits and commonl y accepted alternatives to the procedure, as well as the expected consequences of no therapy whatsoev er. Discussion of the risks included, but was not limited to, those that are most frequent and thos e that are rare but possibly severe or life-threatening, as well as the possibility of unforeseen com plications. Technique and Findings: Following informed consent, the patient was prepped and draped in the usual s terile fashion. Ultrasound interrogation of the right neck revealed patency and compressibility of t he right internal jugular vein. A 21-gauge micropuncture was then used to gain access to this vein u nder ultrasound guidance. A hard copy ultrasound image was recorded. The needle was exchanged over a wire for a 4 Amharic sheath which was used to guide an Amplatz wire into the IVC. The skin over the right anterior chest wall was copiously anesthetized with 1% Lidocaine plus Epinephrine and a small dermatotomy was made. A 23 cm tip to cuff palindrome hemodialysis catheter was then tunneled subcuta neously towards the neck dermatotomy and deployed through a large caliber peel-away sheath under fluo roscopic guidance such that the distal tip resided in the mid right atrium. Manual flow rates were a ssessed and found to be excellent. The neck dermatotomy was closed with Dermabond. Impression: Ultrasound and fluoroscopic-guided placement of right internal jugular tunneled hemodialy sis catheter Electronically signed by: Nathen Murray MD (12/10/2020 10:43 AM) [id number]
--- NOTE | 2020-12-10 12:33 | NUR ---
Discharge Note: ANKIT CORDOVA Discharge instructions and discharge home medications reviewed with Patient, daughter, and and a copy given. All questions have been answered and understanding verbalized. The following instructions and handouts were given: Moderate Sedation & Tunneled dialysis catheter care. Discontinued lines and drains: Right arm IV DC'd and tip intact, and bandage applied. Patient discharged to home with daughter and , via personal vehicle.
== END 2020-12-10 11:51 | disposition home or self-care (01) ==
LOC: INTRAD 08:15
PROVIDERS: ATTEND Nurse Practitioner Adult Health
DX: I12.0 Hypertensive chronic kidney disease with stage 5 chronic kidney disease or end stage renal disease (principal); N18.6 End stage renal disease; I25.10 Atherosclerotic heart disease of native coronary artery without angina pectoris; E03.9 Hypothyroidism, unspecified; M19.90 Unspecified osteoarthritis, unspecified site; E78.00 Pure hypercholesterolemia, unspecified; K21.9 Gastro-esophageal reflux disease without esophagitis; Z79.82 Long term (current) use of aspirin; Z79.899 Other long term (current) drug therapy; Z98.890 Other specified postprocedural states
CPT/HCPCS: 36415; 36558; 71045; 76937; 77001; 80048; 85025; 85610; 86704; 86706; 86803; 87340; 99152; 99153; C1750; C1769; C1892; J0690; J2250; J3010; J3490

== ENCOUNTER → 2020-12-20 | Outpatient (CLI) | payer MEDICARE, OTHER ==
[2020-12-10 11:40] VITALS: BP 101/47
[2020-12-20 12:51] LABS: BASO % 0 % (0-3); EOS # 0.1 x10^3/uL (0.0-0.7); EOS % 1 % (0-3); HEMATOCRIT 31.7 % (39.0-53.0); HEMOGLOBIN 10.8 g/dL (13.0-17.5); LYMPH # 1.5 x10^3/uL (1.0-4.8); LYMPH % 16 % (24-48); MEAN CORPUSCULAR HEMOGLOBIN 35 pg (25-35); MEAN CORPUSCULAR HGB CONC 34 g/dL (31-37); MEAN CORPUSCULAR VOLUME 101 fL (79-100); MONO # 0.9 x10^3/uL (0.0-1.1); MONO % 9 % (0-9); NEUT # 6.9 x10^3/uL (1.8-7.7); NEUT % 73 % (31-73); PLATELET COUNT 232 x10^3/uL (140-400); RED BLOOD COUNT 3.13 x10^6/uL (4.30-5.70); RED CELL DISTRIBUTION WIDTH 12.7 % (11.5-14.5); WHITE BLOOD COUNT 9.3 x10^3/uL (4.0-11.0)
[2020-12-20 13:17] LABS: ALBUMIN 1.6 g/dL (3.4-5.0); ALBUMIN/GLOBULIN RATIO 0.5 (1.0-1.7); CALCIUM 8.3 mg/dL (8.5-10.1); CREATININE 3.8 mg/dL (0.7-1.3); GFR 15.2; TOTAL BILIRUBIN 0.2 mg/dL (0.2-1.0)
[2020-12-21 16:10] LABS: COMMENT IMMUNOFIX SERUM Note: (.); IMMUNOGLOBULIN A 176 mg/dL (61-437); IMMUNOGLOBULIN G 162 mg/dL (603-1613); IMMUNOGLOBULIN M 60 mg/dL (15-143); KAPPA FREE 48.1 mg/L (3.3-19.4); KAPPA LAMBDA RATIO 0.28 (0.26-1.65); LAMBDA FREE 173.5 mg/L (5.7-26.3)
[2020-12-21 17:10] LABS: ALBUM 2.1 g/dL (2.9-4.4); ALPHA 1 0.3 g/dL (0.0-0.4); ALPHA 2 1.1 g/dL (0.4-1.0); BETA 0.7 g/dL (0.7-1.3); GAMMA 0.3 g/dL (0.4-1.8); PROTEIN TOTAL 4.5 g/dL (6.0-8.5); SPEP AG RATIO 0.9 (0.7-1.7)
== END ==
LOC: ONCLAB 11:17
PROVIDERS: ATTEND Internal Medicine Hematology & Oncology
DX: D47.2 Monoclonal gammopathy (principal)
CPT/HCPCS: 36415; 80053; 82784; 83520; 84165; 85025; 86334

== ENCOUNTER → 2021-01-25 | Outpatient (CLI) | payer MEDICARE, OTHER ==
[2020-12-10 11:40] VITALS: BP 101/47
[~2021-01-25] MED LIST changes: +CYCL10TA19 PO; -CYCL10TA2 PO
--- NOTE | 2021-01-25 12:55 | RAD ---
EXAM: Upper extremity venous mapping sonogram. HISTORY: Fistula preoperative planning. TECHNIQUE: Sonographic imaging of the upper 70 veins was performed. COMPARISON: None. FINDINGS: The right cephalic vein measures 2.5 mm within the proximal upper arm, 2.0 mm within the mi d upper arm, 2.2 mm within the distal upper arm, 1.9 mm at the antecubital fossa, 1.7 mm within the m id forearm and 1.7 mm within the distal forearm. The right basilic vein measures 3.1 mm within the proximal upper arm, 3.1 mm within the mid upper arm , 3.6 mm within the distal upper arm, 1.6 mm at the antecubital fossa, 1.5 mm within the mid forearm and 1.8 mm within the distal forearm. The left cephalic vein measures 2.3 mm within the proximal upper arm, 2.6 mm within the mid upper arm , 2.4 mm within the distal upper arm, 2.1 mm at the antecubital fossa, 1.7 mm within the mid forearm and 1.8 mm within the distal forearm. The left basilic vein measures 3.3 mm within the proximal upper arm, 3.2 mm within the mid upper arm, 2.6 mm within the distal upper arm, 1.4 mm at the antecubital fossa, 1.1 mm within the mid forearm a nd 1.2 mm within the distal forearm. IMPRESSION: Bilateral basilic and cephalic vein caliber measurements for operative planning, describe d above. Electronically signed by: Lauren Adams MD (01/25/2021 12:53 PM) [id number]
== END ==
LOC: US 12:18
PROVIDERS: ATTEND Internal Medicine Nephrology
DX: Z01.818 Encounter for other preprocedural examination (principal); D47.2 Monoclonal gammopathy; N18.6 End stage renal disease; N00.8 Acute nephritic syndrome with other morphologic changes; Z99.2 Dependence on renal dialysis
CPT/HCPCS: 93970

== ENCOUNTER 2021-01-27 08:11 | Outpatient (CLI) | payer MEDICARE, OTHER ==
[2021-01-27] VITALS (8 sets, daily range): BP systolic 89–128; BP diastolic 49–68
[~2021-01-27] VITALS: Ht 170.2 cm; Wt 70.9 kg
[~2021-01-27 08:11] MED LIST changes: -CYCL10TA19 PO; +CYCL10TA2 PO
[2021-01-27 09:00] LABS: BASO % 0 % (0-3); EOS # 0.1 x10^3/uL (0.0-0.7); EOS % 1 % (0-3); HEMATOCRIT 31.9 % (39.0-53.0); HEMOGLOBIN 10.9 g/dL (13.0-17.5); LYMPH # 1.8 x10^3/uL (1.0-4.8); LYMPH % 20 % (24-48); MEAN CORPUSCULAR HEMOGLOBIN 36 pg (25-35); MEAN CORPUSCULAR HGB CONC 34 g/dL (31-37); MEAN CORPUSCULAR VOLUME 104 fL (79-100); MONO % 11 % (0-9); NEUT # 6.3 x10^3/uL (1.8-7.7); NEUT % 68 % (31-73); PLATELET COUNT 244 x10^3/uL (140-400); RED BLOOD COUNT 3.06 x10^6/uL (4.30-5.70); RED CELL DISTRIBUTION WIDTH 13.6 % (11.5-14.5); WHITE BLOOD COUNT 9.2 x10^3/uL (4.0-11.0)
[2021-01-27 09:21] LABS: PROTHROMBIN TIME PATIENT 12.4 SEC (11.7-14.0)
[2021-01-27] MEDS ORDERED: LIDOCAINE 1%/EPI 1:100,000 20 ML VIAL. ONE (09:25)
[2021-01-27] MEDS ORDERED: MIDAZOLAM HCL/PF 2 MG/2 ML VIAL. ONE (09:51)
[2021-01-27] MEDS ORDERED: fentaNYL PF VIAL 100 MCG/2 ML VIAL ONE (09:51)
[2021-01-27] MEDS ORDERED: ceFAZolin SODIUM IV Push 1 GM VIAL. IVP ONE ×2 (10:05→10:30)
[2021-01-27] MEDS ORDERED: fentaNYL PF VIAL 100 MCG/2 ML VIAL IV ONE (10:30)
[2021-01-27] MEDS ORDERED: LIDOCAINE 1%/EPI 1:100,000 20 ML VIAL. INJ ONE (10:30)
[2021-01-27] MEDS ORDERED: MIDAZOLAM HCL/PF 2 MG/2 ML VIAL. IV ONE (10:30)
--- NOTE | 2021-01-27 11:00 | PDOC ---
MODERATE SEDATION ASSESSMENT RISKS/ALTERNATIVES Risks/Alternatives Risks and alternatives of this type of sedation and procedure discussed with: RISK/ALTERNATIVES: Patient H & P ON CHART H & P H & P on chart and reviewed for co-morbid conditions and appropriate labs. H&P ON CHART: Yes STATUS PREG STATUS ASSESSED: Yes MEDS/ALLERGIES REVIEWED Meds/Allergies Reviewed Medications and Allergies including time and route of recently administered narcotics and sedatives. MEDS/ALLERGIES REVIEWED: Yes ASA RATING ASA RATING: II AIRWAY ASSESSMENT Airway Assessment Airway patency, oral function limitations, presence of caps, crowns, dentures, partials, and ability to extend neck assessed. AIRWAY ASSESSMENT: Yes MALLAMPATI SCORE MALLAMPATI SCORE: II PRE-SEDATION ASSESSMENT PRE-SEDATION ASSESSMENT: Yes FITO OLIVERA MD Jan 27, 2021 11:00
--- NOTE | 2021-01-27 11:01 | PDOC ---
BRIEF OPERATIVE NOTE Pre-Op Diagnosis Poorly functioning HD catheter Post-Op Diagnosis same Procedure Performed Tunnelled HD catheter exchange Surgeon Gio EBL none Anesthesia Type: Conscious Sedation Specimens Obtained none Findings New R IJ tunnelled HD catheter suitable for use FITO OLIVERA MD Jan 27, 2021 11:01
--- NOTE | 2021-01-27 11:28 | RAD ---
Procedure: Tunneled hemodialysis catheter exchange through same venous access Clinical Indication: Adult male with poorly functioning tunneled hemodialysis catheter Sedation: Conscious sedation using a combination of Versed and fentanyl was provided for 24 minutes, including continuous monitoring of the patients heart rate, rhythm, blood pressure, oxygen saturation and level of arousability by a trained independent observer. Antibiotics: Antibiotic was administered intravenously within 1 hour of the procedure start time. Fluoro Exposure: Kerma-Area Product: 1 Gycm2 Sterility: All elements of maximal sterile barrier technique including the use of a cap, mask, steril e gown, sterile gloves, large sterile sheet, appropriate hand hygiene, and 2% chlorhexidine for cutan eous antisepsis (or acceptable alternative antiseptic per current guidelines) were followed for this procedure. Consent: The procedure was explained in its entirety to the patient or the patients designated repres entative by a member of the treatment team, including a discussion of the risks, benefits and commonl y accepted alternatives to the procedure, as well as the expected consequences of not performing the procedure. Discussion of the risks included, but was not limited to, those that are most frequent an d those that are rare but possibly severe or life-threatening, as well as the possibility of unforese en complications. Time Out: Immediately prior to initiation a procedural pause was conducted in the presence of the mem bers of the treatment team to verify correct patient identity, correct procedure, correct side if joselyn licable, correct patient position, availability of specialized equipment, review of patients allergie s, and assessment of current level of consciousness and arousability. Technique and Findings: Following informed consent, the patient was prepped and draped in usual steri le fashion. Preliminary fluoroscopic spot view demonstrated an intact right IJ tunneled hemodialysis catheter. 1 percent lidocaine was used to achieve local anesthesia over the exit site. As this cathet er is hubbed, palpation was used to identify the cuff, and additional lidocaine was injected over the area of the cuff. A small dermatotomy was made over the cuff and blunt dissection techniques were us ed to free the cuff. The catheter was then divided, and a stiff Glidewire was advanced through the ca theter into the IVC under fluoroscopic guidance. The vascular portion of the catheter was then remove d and a new 23 cm palindrome catheter was advanced over the wire and positioned under fluoroscopic gu idance with the distal tip in the mid right atrium, slightly deeper than previously position. The ext ravascular catheter fragment was then removed from the subcutaneous tract, and hemostasis was achieve d with manual compression. The new catheter demonstrated excellent manual flow rates, and was flushed and capped. A pursestring suture using 4-0 Vicryl was used to close the new skin dermatotomy at the new exit site. There is no exit site was left to heal by secondary intention. The catheter was suture d to the skin and a dressing was applied. Complications: No immediate Impression: 1. Fluoroscopic guided exchange of a temporary dialysis catheter through same venous access, but usin g a skin dermatotomy as described. Electronically signed by: Haresh Powers MD (01/27/2021 11:25 AM) [id number]
--- NOTE | 2021-01-27 12:07 | NUR ---
Discharge Note: ANKIT CORDOVA Discharge instructions and discharge home medications reviewed with Patient and a copy given. All questions have been answered and understanding verbalized. The following instructions and handouts were given: MODERATE SEDATION AND INCISION SITE CARE. Discontinued PERIPHERAL IV, NO COMPLICATIONS. RIGHT CHEST DRESSING REMAINED C/D/I. Patient discharged to HOME WITH HIS SPOUSE.
== END 2021-01-27 12:20 | disposition home or self-care (01) ==
LOC: INTRAD 08:11
PROVIDERS: ATTEND Internal Medicine Nephrology
DX: Z45.2 Encounter for adjustment and management of vascular access device (principal); I10 Essential (primary) hypertension; E78.00 Pure hypercholesterolemia, unspecified; I25.10 Atherosclerotic heart disease of native coronary artery without angina pectoris; K21.9 Gastro-esophageal reflux disease without esophagitis; E03.9 Hypothyroidism, unspecified; M19.90 Unspecified osteoarthritis, unspecified site; F17.210 Nicotine dependence, cigarettes, uncomplicated; Z79.899 Other long term (current) drug therapy; Z95.5 Presence of coronary angioplasty implant and graft; Z96.652 Presence of left artificial knee joint; Z98.890 Other specified postprocedural states
CPT/HCPCS: 36415; 36581; 77001; 85025; 85610; 99152; 99153; C1750; C1769; J0690; J2250; J3010; J3490

== ENCOUNTER 2021-04-26 05:51 | Day surgery (SDC) | payer MEDICARE, OTHER ==
[~2021-04-26] VITALS: Ht 170.2 cm; Wt 70.9 kg
[~2021-04-26 05:51] MED LIST changes: +CARV6.25 PO; +CHOL500016 PO; +CYCL10TA19 PO; -CYCL10TA2 PO; +FOLI0.8T30 PO; +GLUC1CAP41 PO
[2021-04-26] MEDS ORDERED: IV RINGERS,LACTATED 1000ML 1,000 ML IV SCH (06:00)
[2021-04-26] MEDS ORDERED: PROCHLORPERAZINE 10 MG/2 ML VIAL. IVP PRN (06:00)
[2021-04-26] MEDS ORDERED: HEPARIN SODIUM 5,000 UNIT in IV NORMAL SALINE 500ML BAG 500 ML IRR ONE (06:00)
[2021-04-26] MEDS ORDERED: HYDROmorphone 2 MG/ML VIAL IVP PRN (06:00)
[2021-04-26] MEDS ORDERED: MORPHINE SULFATE 2 MG/ML INJ. IVP PRN (06:00)
[2021-04-26] MEDS ORDERED: fentaNYL PF VIAL 100 MCG/2 ML VIAL IVP PRN ×2 (06:00)
[2021-04-26 06:29] VITALS: BP 163/78
[2021-04-26 06:33] LABS: BASO % 0 % (0-3); EOS # 0.1 x10^3/uL (0.0-0.7); EOS % 1 % (0-3); HEMOGLOBIN 11.3 g/dL (13.0-17.5); LYMPH # 1.7 x10^3/uL (1.0-4.8); LYMPH % 18 % (24-48); MEAN CORPUSCULAR HEMOGLOBIN 36 pg (25-35); MEAN CORPUSCULAR HGB CONC 34 g/dL (31-37); MEAN CORPUSCULAR VOLUME 106 fL (79-100); MONO % 11 % (0-9); NEUT # 6.7 x10^3/uL (1.8-7.7); NEUT % 70 % (31-73); PLATELET COUNT 332 x10^3/uL (140-400); RED BLOOD COUNT 3.11 x10^6/uL (4.30-5.70); RED CELL DISTRIBUTION WIDTH 13.6 % (11.5-14.5); WHITE BLOOD COUNT 9.5 x10^3/uL (4.0-11.0)
[2021-04-26 06:47] LABS: CALCIUM 7.4 mg/dL (8.5-10.1); CREATININE 3.3 mg/dL (0.7-1.3); GFR 17.8; POTASSIUM 3.5 mmol/L (3.5-5.1)
[2021-04-26] MEDS ORDERED: PROPOFOL 10 MG/ML (20ML) VIAL. IV ONE ×2 (06:52→07:53)
[2021-04-26] MEDS ORDERED: fentaNYL PF VIAL 100 MCG/2 ML VIAL ONE (06:53)
[2021-04-26] MEDS ORDERED: ONDANSETRON PF 4 MG/2 ML VIAL. ONE (06:53)
[2021-04-26] MEDS ORDERED: SUCCINYLCHOLINE 200 MG/10 ML VIAL. ONE (06:55)
[2021-04-26] MEDS ORDERED: SURGICEL FIBRILLAR 1X2 EACH. ONE (07:01)
[2021-04-26] MEDS ORDERED: LIDOCAINE 1% PF 30 ML VIAL. ONE (07:02)
--- NOTE | 2021-04-26 07:14 | PDOC1 ---
H & P. DATE OF SERVICE: DATE: 04/26/21 TIME: 07:06 HPI: He is an 86-year-old male with hypertension and chronic renal failure who presents for long-term hemodialysis access placement. He is right-handed. He had vein mapping that demonstrated marginal size basilic veins bilaterally. The cephalic veins were too small for access placement. He denies any hand pain or numbness. He has been on dialysis since December using a tunneled dialysis catheter. He denies any chest pain or shortness of breath. ROS: Constitutional: Denies fever, fatigue, chills HEENT: Denies sore throat, vision changes Cardio: Denies chest pain, dyspnea with exertion, syncope, palpitations, edema Pulmonary: Denies shortness of breath, cough, wheezing GI: Denies nausea, vomiting, diarrhea, constipation : Denies dysuria, frequency, urgency, incontinence Skin: Denies new lesions Neuro: Denies weakness, paresthesias PMH: 1. Chronic renal failure on hemodialysis 2. Hypertension 3. Hypothyroidism FAMILY HX: Noncontributory SOCIAL HX: Previous history of smoking. Denies any alcohol use. SURGICAL HX: Left knee replacement Back surgery Cardiac stents Shoulder surgery Cataract surgery MEDS: Aspirin 81 mg daily Coreg 6.25 mg twice daily Co-Q10 100 mg daily Cyanocobalamin 1000 mg daily Zetia 10 mg daily Fish oil daily Glucosamine daily Hydrochlorothiazide 12.5 mg daily Levothyroxine 75 mcg daily Routine daily Multivitamin daily Ranexa 500 mg twice daily Crestor 40 mg daily Zinc 50 mg daily ALLERGIES: No known drug allergies PE: Alert, oriented, no acute distress Neck supple, right internal jugular tunneled dialysis catheter RRR Nonlabored respirations Abdomen: Soft, nontender, nondistended Extremity: Palpable radial pulses bilaterally, no significant peripheral edema Neuro: Awake and alert answering questions appropriately, equal upper and lower extremity strength without focal deficits ASSESSMENT & PLAN: 1. Chronic renal failure requiring long-term hemodialysis access 2. Hypertension 3. Hyperlipidemia He presents for long-term hemodialysis access placement. I discussed risks and potential benefits of both arteriovenous fistula versus shunt placement. Risks include but not limited to bleeding, infection, nerve injury, arterial steal, edema, cardiac/pulmonary complications, and . He acknowledged and requested to proceed. Will assess arm in the operating room. Plan left arm arteriovenous access placement. Justifications for Admission Other Justification LIVIA DENT MD 14, 2021 07:14
[2021-04-26] MEDS ORDERED: HYDR-2761 PO (07:38)
--- NOTE | 2021-04-26 07:43 | DISCH ---
DISCHARGE INSTRUCTIONS Condition on Discharge Condition on Discharge: Stable Activity After Discharge Activity Instructions for Disc: Resume previous activity, Activity as tolerated Bathing Instructions: Shower-keep dressing dry (Can shwoer 04/28, water can run over incision, dab dry after.) Lifting Instructions after Dis: No heavy lifting, No pulling or pushing, Do not lift >10 pounds Driving Instructions after Dis: Do not drive today (Or while taking pain medicines) Weight Bearing Status after Di: Full weight bearing, Other, see below (no lifting > 10 lbs in operative arm for 5 days. ) Diet after Discharge Diet after Discharge: Renal Non-Dialysis Additional Diet Restrictions: resume home diet Liquid Texture: Thin Liquid Wound Incision Care Wound/Incision Care: Ice to area for comfort, May get incision wet, Other, see below (Dry dressings to incision only, can change as needed or daily.) Wound Care Equipment: Sutures/iraj Contacting the DRSukhjinder after DC Call your doctor for: Concerns you may have Treatment/Equipment after DC Adaptive Equipment Issued: None LULÚ JACOBS Apr 26, 2021 07:43
--- NOTE | 2021-04-26 09:24 | PDOC4 ---
BRIEF OPERATIVE NOTE Date: Apr 26, 2021 Pre-Op Diagnosis ESRD on HD Post-Op Diagnosis Same Procedure Performed Left upper extremity arteriovenous shunt placement Surgeon Stepan Salgado MD Search Engineer RONALDO Ballard Anesthesia Type: MAC Blood Loss 10 mL Specimens Obtained None Findings 1+ Palpable radial pulse post op Complications None Operative Note See dictated op note LULÚ JACOBS Apr 26, 2021 09:23
[2021-04-26 09:40] VITALS: BP 125/57
[2021-04-26] MEDS ORDERED: HYDROcodone/APAP 5/325MG 1 TAB TABLET PO ONE (10:00)
--- NOTE | 2021-04-26 10:00 | OP ---
DATE OF SURGERY: 04/26/2021 PREOPERATIVE DIAGNOSES: 1. Chronic renal failure, requiring long-term hemodialysis access. 2. Hypertension. 3. Hypothyroidism. POSTOPERATIVE DIAGNOSES: 1. Chronic renal failure, requiring long-term hemodialysis access. 2. Hypertension. 3. Hypothyroidism. PROCEDURE: Left upper arm arteriovenous shunt placement (4-7 mm Propaten [place]braham graft). SURGEON: Stepan Salgado MD. ACCOUNTING SUPPORT SPECIALIST: RONALDO Ballard. ANESTHESIA: Monitored anesthesia care, local. INDICATIONS: The patient is an 86-year-old male with chronic renal failure, on hemodialysis through a tunneled dialysis catheter. He presents for long-term access placement. He is right handed. Vein mapping showed no adequate veins for primary fistula formation. Findings repeat ultrasound. Immediately prior to surgery showed marginal left arm basilic vein until the proximal arm. He subsequently is to have upper arm shunt placement. The proximal brachial vein was of very good caliber. He underwent left upper arm loop shunt using a 4-7 mm Propaten [place]braham graft with proximal brachial artery inflow and proximal brachial vein venous outflow. DESCRIPTION OF PROCEDURE: The patient was taken to the operating room and placed on the operating table. He underwent IV sedation. His left arm was prepped and draped in normal sterile fashion. 1% lidocaine was infused with local anesthetic. A longitudinal incision was made on the left proximal arm. This incision, carried down through subcutaneous tissue to expose the brachial vein and brachial artery. These were adequately mobilized. He was given 6000 units of IV heparin. A 4 mm to 7 mm Propaten [place]ham graft was tunneled in a loop in the left upper arm facilitated by a distal counter incision. The brachial artery was clamped proximally and distally with micro bulldogs. An anterior arteriotomy was performed and extended with Davis scissors for approximately 10 mm in length. The 4 mm limb of the graft was beveled to the appropriate size and an end-to-side anastomosis was constructed with a running 5-0 Prolene suture. Upon completion of anastomosis, the artery was backward and forward flushed through the graft. The flow was reconstituted the brachial artery. The graft was flushed with heparinized saline. The brachial vein was then clamped proximally and distally with micro bulldogs. An anterior venotomy was performed and extended with Davis scissors for approximately 1.5 cm in length, 7 mm limb of the graft was beveled to the appropriate size and an end-to-side anastomosis was constructed with a running 5-0 Prolene suture. Prior to completion of anastomosis, the vein was backloaded and forward flush. The graft was forward flushed, anastomosis completed and flow reconstituted through the brachial vein in the newly created arteriovenous shunt. There was a good thrill within the shunt. The incisions were copiously irrigated with saline irrigation. Fibrillar Surgicel was placed around each of the anastomosis. Subcutaneous tissue was reapproximated with 3-0 Vicryl suture. Skin was reapproximated with a running subcuticular 4-0 Vicryl. Mastisol and Steri-Strips were applied and a sterile dressing placed into the wound. Estimated blood loss of 10 mL. SPECIMENS: None. Please note that Maddy assisted with exposure, shunt placement, and wound closure. SVETLANA DR: Kevin TID: [id number] CC: ISAAC WONG MD, LAZARO ARMSTRONG MD
== END 2021-04-26 10:16 | disposition home or self-care (01) ==
LOC: SURG 05:51
PROVIDERS: ATTEND Specialist
DX: I12.0 Hypertensive chronic kidney disease with stage 5 chronic kidney disease or end stage renal disease (principal); N18.6 End stage renal disease; E03.9 Hypothyroidism, unspecified; Z99.2 Dependence on renal dialysis; E78.00 Pure hypercholesterolemia, unspecified; K21.9 Gastro-esophageal reflux disease without esophagitis; I25.10 Atherosclerotic heart disease of native coronary artery without angina pectoris; M19.90 Unspecified osteoarthritis, unspecified site; Z87.891 Personal history of nicotine dependence; Z79.82 Long term (current) use of aspirin; Z79.899 Other long term (current) drug therapy; Z98.890 Other specified postprocedural states
CPT/HCPCS: 36415; 36830; 80048; 85025; A4213; A4364; A4930; A6219; A6402; C1768; J0330; J0690; J1644; J2704; J3010; J3490; J7040; A4452; J2405

== ENCOUNTER 2021-09-01 07:27 | Outpatient (CLI) | payer MEDICARE, OTHER ==
[~2021-09-01] VITALS: Ht 170.2 cm; Wt 76.4 kg
[2021-09-01] VITALS (7 sets, daily range): BP systolic 115–145; BP diastolic 54–84
[~2021-09-01 07:27] MED LIST changes: +HYDR-2761 PO; +TRAM50TA PO
[2021-09-01 07:59] LABS: BASO # 0.1 x10^3/uL (0.0-0.2); BASO % 0 % (0-3); EOS % 0 % (0-3); HEMATOCRIT 34.1 % (39.0-53.0); HEMOGLOBIN 11.5 g/dL (13.0-17.5); LYMPH # 1.9 x10^3/uL (1.0-4.8); LYMPH % 16 % (24-48); MEAN CORPUSCULAR HEMOGLOBIN 37 pg (25-35); MEAN CORPUSCULAR HGB CONC 34 g/dL (31-37); MEAN CORPUSCULAR VOLUME 109 fL (79-100); MONO # 1.1 x10^3/uL (0.0-1.1); MONO % 9 % (0-9); NEUT # 9.1 x10^3/uL (1.8-7.7); NEUT % 75 % (31-73); PLATELET COUNT 327 x10^3/uL (140-400); RED BLOOD COUNT 3.13 x10^6/uL (4.30-5.70); RED CELL DISTRIBUTION WIDTH 14.3 % (11.5-14.5); WHITE BLOOD COUNT 12.2 x10^3/uL (4.0-11.0)
[2021-09-01 08:05] LABS: CALCIUM 7.5 mg/dL (8.5-10.1); CREATININE 4.5 mg/dL (0.7-1.3); GFR 12.5; POTASSIUM 3.1 mmol/L (3.5-5.1)
[2021-09-01 08:08] LABS: PROTHROMBIN TIME PATIENT 12.1 SEC (11.7-14.0)
[2021-09-01] MEDS ORDERED: IODIXANOL 320 MG/ML 50ML VIAL. ONE (08:19)
[2021-09-01] MEDS ORDERED: LIDOCAINE WITH 8.4% SOD BICARB 3 ML DISP.SYRIN. ONE (08:20)
[2021-09-01] MEDS ORDERED: ALTEPLASE 2 MG VIAL INT CAT ONE ×2 (08:30→09:00)
[2021-09-01] MEDS ORDERED: HEPARIN for IV BOLUS 10,000 UNIT/10 ML VIAL. ONE (08:31)
[2021-09-01] MEDS ORDERED: MIDAZOLAM HCL/PF 2 MG/2 ML VIAL. ONE (08:31)
[2021-09-01] MEDS ORDERED: fentaNYL PF VIAL 100 MCG/2 ML VIAL ONE (08:31)
[2021-09-01] MEDS ORDERED: IODIXANOL 320 MG/ML 100 ML VIAL. ONE (08:35)
[2021-09-01] MEDS ORDERED: IODIXANOL 320 MG/ML 100 ML VIAL. IART ONE (09:00)
[2021-09-01] MEDS ORDERED: MIDAZOLAM HCL/PF 2 MG/2 ML VIAL. IV ONE (09:00)
[2021-09-01] MEDS ORDERED: LIDOCAINE WITH 8.4% SOD BICARB 3 ML DISP.SYRIN. IJ ONE (09:00)
[2021-09-01] MEDS ORDERED: fentaNYL PF VIAL 100 MCG/2 ML VIAL IV ONE (09:00)
[2021-09-01] MEDS ORDERED: HEPARIN for IV BOLUS 10,000 UNIT/10 ML VIAL. IV ONE (09:15)
[2021-09-01] MEDS ORDERED: ceFAZolin SODIUM IV Push 1 GM VIAL. IVP ONE ×2 (09:36→09:45)
--- NOTE | 2021-09-01 11:33 | NUR ---
pt discahrged home with family. No signs of bleeding noted. Discharge instructions reviewed with family. Pt ambulated and tolerated PO.
--- NOTE | 2021-09-01 15:54 | RAD ---
Procedure: Left AV graft declot, and angioplasty of the arterial anastomosis and angioplasty and sten ting of the venous anastomosis. Clinical Indication: Adult male with three-month old AV graft, acutely thrombosed status post recent dialysis. Sedation: Local anesthesia only Antibiotics: Antibiotic was administered intravenously within 1 hour of the procedure start time. Exposure: Kerma-Area Product: 14 Gycm2 Sterility: All elements of maximal sterile barrier technique including the use of a cap, mask, steril e gown, sterile gloves, large sterile sheet, appropriate hand hygiene, and 2% chlorhexidine for cutan eous antisepsis (or acceptable alternative antiseptic per current guidelines) were followed for this procedure. Consent: The procedure was explained in its entirety to the patient or the patients designated repres entative by a member of the treatment team, including a discussion of the risks, benefits and commonl y accepted alternatives to the procedure, as well as the expected consequences of not performing the procedure. Discussion of the risks included, but was not limited to, those that are most frequent an d those that are rare but possibly severe or life-threatening, as well as the possibility of unforese en complications. Technique and Findings: Following informed consent, the patient was prepped and draped in usual steri le fashion. Ultrasound interrogation of the graft revealed thrombosis throughout, with severe narrowi ng at the venous anastomosis. 1 percent lidocaine was used to achieve local anesthesia. A small derma totomy was made. Under ultrasound guidance, a 21-gauge micromotion was used to gain access to the pro ximal portion of the graft in antegrade fashion. A hardcopy ultrasound image was recorded. The needle was exchanged over wire for a 6 Jamaican sheath. A small infusion catheter was then advanced through t he thrombus and 6 mm of TPA was infused. A second area of the graft distally was then anesthetized wi th 1 percent lidocaine. A small dermatotomy was made. Under ultrasound guidance, a 21-gauge micropunc ture needle was used to gain access to the graft a retrograde fashion. Once again a hardcopy ultrasou nd image was recorded. This needle was also exchanged over wire for 6 [place]ican sheath. At this juncture , an angled catheter and wire were then advanced through the graft from the first sheath in an antegr alma fashion towards the subclavian vein. There are significant resistance at the level of the venous outflow anastomosis. This was eventually successfully transgressed, and contrast venography of the le ft axillary vein was performed demonstrating wide patency of left axillary, subclavian, innominate ve ins as well as the vena cava. The catheter was then withdrawn into the brachial vein and contrast vale ography was performed demonstrating severe stenosis at the venous anastomosis. The patient was given 5000 units of heparin intravenously. A 7 mm x 80 mm angioplasty balloon was then used to angioplasty the stenosis to maximum pressure of 24 rosana. This resulted in some improvement, but failed to alleviat e this stenosis entirely due to a focal weblike recalcitrant band. The 7 mm and possibly was then ins ufflated into separate locations within the graft and used to macerate thrombus. A 5 mm x 20 mm angio plasty balloon was then advanced in a retrograde fashion across the arterial anastomosis and was infl ated and used to pull the arterial plug. This balloon was then removed. Contrast venography was perfo rmed demonstrating gnosticist of flow throughout the circuit, with moderate amount of residual throm bus, and no significant arterial anastomotic stenosis. The persistent venous anastomotic stenosis was then treated using an 8 mm x 40 mm self-expanding bare-metal stent which was postdilated using the 7 mm x 80 mm angioplasty balloon to full profile. The balloon was removed and contrast angiography was performed demonstrating improved appearance overall, with persistent compression of the central port ion of the stent from this recalcitrant stenosis however. Consequently, an 8 mm x 40 mm angioplasty b alloon was used to angioplasty the stent to 16 rosana. As this was felt to be slightly over size relativ e to the graft, no further inflation was pursued. The balloon was deflated and removed and repeat ang iography demonstrated brisk flow through the circuit, with improved but persistent focal relative yuan rowing of the central portion of the stent by roughly 10-15 percent. As flow is brisk, this appearanc e was deemed to be sufficient function. Consequently, wires and catheters were removed. A pursestring suture was applied to each sheath as they were removed and hemostasis was achieved with manual compr ession. Complications: No immediate Impression: 1. 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 Thrombosis is successfully resolved following TPA and mechanical maceration. Stenosis is markedly improved but n ot resolved entirely following placement of a millimeter bare-metal stent expanded to 8 mm by high-pr essure balloon angioplasty. PQRS Compliance Statement: One or more of the following individualized dose reduction techniques were utilized for this examinat ion: 1. Automated exposure control 2. Adjustment of the mA and/or kV according to patient size 3. Use of iterative reconstruction technique Electronically signed by: Haresh Powers MD (09/01/2021 3:52 PM) [id number]
[2021-09-01] MEDS ORDERED: SPIR25TA PO (19:11)
== END 2021-09-01 11:49 | disposition home or self-care (01) ==
LOC: INTRAD 07:27
PROVIDERS: ATTEND Internal Medicine Nephrology
DX: T82.868A Thrombosis due to vascular prosthetic devices, implants and grafts, initial encounter (principal); I25.10 Atherosclerotic heart disease of native coronary artery without angina pectoris; E78.00 Pure hypercholesterolemia, unspecified; I12.0 Hypertensive chronic kidney disease with stage 5 chronic kidney disease or end stage renal disease; N18.6 End stage renal disease; M19.90 Unspecified osteoarthritis, unspecified site; E03.9 Hypothyroidism, unspecified; Z79.82 Long term (current) use of aspirin; Z79.899 Other long term (current) drug therapy; Z98.890 Other specified postprocedural states; X58.XXXA Exposure to other specified factors, initial encounter; Y93.89 Activity, other specified; Y92.89 Other specified places as the place of occurrence of the external cause; Y99.8 Other external cause status
CPT/HCPCS: 36415; 36906; 76937; 80048; 85025; 85610; 99152; 99153; C1725; C1757; C1769; C1876; C1894; J0690; J1644; J2997; J3010; J3490; Q9967

== ENCOUNTER 2021-09-23 10:50 | Inpatient (IN) | payer MEDICARE, OTHER ==
[~2021-09-23] VITALS: Ht 170.2 cm; Wt 58.5 kg
[~2021-09-23 10:50] MED LIST changes: +ACET325T21 PO; +DICL100G59 TP; +FLUD0.1T PO; +MIDO2.5T PO; +MIDO5TAB4 PO; +POLY17PO52 PO; +SENN1TAB99 PO; +SPIR25TA PO
[2021-09-23 11:38] LABS: BASO % 0 % (0-3); EOS % 0 % (0-3); HEMATOCRIT 20.2 % (39.0-53.0); LYMPH # 0.9 x10^3/uL (1.0-4.8); LYMPH % 6 % (24-48); MEAN CORPUSCULAR HEMOGLOBIN 37 pg (25-35); MEAN CORPUSCULAR HGB CONC 33 g/dL (31-37); MEAN CORPUSCULAR VOLUME 109 fL (79-100); MONO # 1.1 x10^3/uL (0.0-1.1); MONO % 7 % (0-9); NEUT # 13.6 x10^3/uL (1.8-7.7); NEUT % 87 % (31-73); PLATELET COUNT 327 x10^3/uL (140-400); RED BLOOD COUNT 1.85 x10^6/uL (4.30-5.70); WHITE BLOOD COUNT 15.6 x10^3/uL (4.0-11.0)
[2021-09-23 11:40] LABS: HEMOGLOBIN 6.7 g/dL (13.0-17.5)
--- NOTE | 2021-09-23 11:44 | RAD ---
EXAM: Chest, single view. HISTORY: Atrial fibrillation. COMPARISON: 12/10/2020 FINDINGS: A frontal view of the chest is obtained. There are small bilateral pleural effusions. There is bilateral lower lobe atelectasis or interstitial infiltrate. The heart is normal in size. There i s no pneumothorax. There is a right internal jugular catheter with the tip in the right atrium. There is a left upper extremity arterial stent. IMPRESSION: 1. Small pleural effusions with bilateral lower lobe atelectasis or interstitial infiltrate. 2. Right internal jugular catheter with the tip overlying expected location of the right atrium. Electronically signed by: Lauren Adams MD (09/23/2021 11:42 AM) [id number]
[2021-09-23 11:52] LABS: ALBUMIN 0.9 g/dL (3.4-5.0); ALBUMIN/GLOBULIN RATIO 0.3 (1.0-1.7); CALCIUM 7.3 mg/dL (8.5-10.1); CREATININE 3.9 mg/dL (0.7-1.3); GFR 14.7; MAGNESIUM 1.9 mg/dL (1.8-2.4); TOTAL BILIRUBIN 0.4 mg/dL (0.2-1.0); TOTAL PROTEIN 4.1 g/dL (6.4-8.2)
[2021-09-23 11:53] LABS: POTASSIUM 2.8 mmol/L (3.5-5.1)
--- NOTE | 2021-09-23 11:57 | RAD ---
EXAM: Head CT without contrast. HISTORY: Altered mental status. TECHNIQUE: Computed tomographic images of the head were obtained without contrast. *One or more of the following individualized dose reduction techniques were utilized for this examina tion: 1. Automated exposure control. 2. Adjustment of the mA and/or kV according to patient size. 3. Use of iterative reconstruction technique. COMPARISON: 09/01/2021. FINDINGS: There is no acute or subacute extra-axial or intraparenchymal hemorrhage. There is no mass effect or midline shift. There is no hydrocephalus. There are areas of decreased attenuation within the cerebral white matter, nonspecific and likely rel ated to chronic small vessel disease. There is cerebral atrophy. There is calcification along the fal x and tentorium. There is evidence of lens surgery. There is fluid within the sphenoid sinus. There is minimal mastoid fluid. No calvarial lesion is seen. IMPRESSION: 1. No acute intracranial finding. MRI is more sensitive for acute infarction. 2. Bilateral cerebral white matter changes, most commonly due to chronic small vessel disease in a pa tient of this age. 3. Cerebral volume loss. Electronically signed by: Lauren Adams MD (09/23/2021 11:54 AM) [id number]
--- NOTE | 2021-09-23 11:59 | PHYS DOC ---
Past Medical History Past Medical History: Anemia, Diabetes-Type II, Hypertension, Hypothyroid, Renal Disease, Renal Failure Past Surgical History: Other Additional Past Surgical Histo: dialysis graft/shunt revision 09/22/21 Smoking Status: Never Smoker Alcohol Use: None General Adult EDM: Chief Complaint: RAPID HEART RATE HPI: HPI: Patient is a 86 year old male who presents with was at hemodialysis today when he began having A. fib that went all the way up into the 160s. Patient also has hypotension. Patient did not finish dialysis and was sent to the hospital. Patient did have a revision of his right chest shunt yesterday. Patient's only complaint is his coccyx pain which is chronic for him. He lives at home. He seems slightly altered. [facility] nurse states that he is usually alert and oriented with it. He has a history of hypertension, renal disease, anemia, diabetes. Denies any type of pain at this time. Denies chest pain denies shortness of breath, nausea, vomiting, diarrhea, fever, body aches, chills, dizziness, headache, sudden vision change, focal weakness, new numbness or tingling. Review of Systems: Review of Systems: Constitutional: Denies fever or chills. [] Eyes: Denies change in visual acuity. [] HENT: Denies nasal congestion or sore throat. [] Respiratory: Denies cough or shortness of breath. [] Cardiovascular: Denies chest pain or edema. +afib[] GI: Denies abdominal pain, nausea, vomiting, bloody stools or diarrhea. [] : Denies dysuria. [] Musculoskeletal: Denies back pain or joint pain. [] Integument: Denies rash. [] Neurologic: Denies headache, focal weakness or sensory changes. [] Endocrine: Denies polyuria or polydipsia. [] Lymphatic: Denies swollen glands. [] Psychiatric: Denies depression or anxiety. [] Heart Score: C/O Chest Pain: No Allergies: Allergies: Allergies Coded Allergies Type Severity Reaction Last Updated Verified No Known Drug Allergies 04/26/21 No Physical Exam: PE: Constitutional: Well developed, well nourished, no acute distress, non-toxic appearance. [] HENT: Normocephalic, atraumatic, bilateral external ears normal, oropharynx moist, no oral exudates, nose normal. [] Eyes: PERRLA, EOMI, conjunctiva normal, no discharge. [] Neck: Normal range of motion, no tenderness, supple, no stridor. [] Cardiovascular:Heart rate irregular rhythm, no murmur [] Lungs & Thorax: Bilateral upper breath sounds clear and lower diminished to auscultation [] Abdomen: Bowel sounds normal, soft, no tenderness, no masses, no pulsatile masses. [] Skin: Warm, dry, no erythema, no rash. Pale [] Back: No tenderness, no CVA tenderness. [] Extremities: No tenderness, no cyanosis, no clubbing, ROM intact, no edema. [] Neurologic: Alert and oriented X 3, normal motor function, normal sensory function, no focal deficits noted. [] Psychologic: Affect normal, judgement normal, mood normal. [] Current Patient Data: Labs: Laboratory Tests Test 09/23/21 11:12 White Blood Count 15.6 x10^3/uL (4.0-11.0) H Red Blood Count 1.85 x10^6/uL (4.30-5.70) L Hemoglobin 6.7 g/dL (13.0-17.5) *L Hematocrit 20.2 % (39.0-53.0) L Mean Corpuscular Volume 109 fL (79-100) H Mean Corpuscular Hemoglobin 37 pg (25-35) H Mean Corpuscular Hemoglobin Concent 33 g/dL (31-37) Red Cell Distribution Width 15.0 % (11.5-14.5) H Platelet Count 327 x10^3/uL (140-400) Neutrophils (%) (Auto) 87 % (31-73) H Lymphocytes (%) (Auto) 6 % (24-48) L Monocytes (%) (Auto) 7 % (0-9) Eosinophils (%) (Auto) 0 % (0-3) Basophils (%) (Auto) 0 % (0-3) Neutrophils # (Auto) 13.6 x10^3/uL (1.8-7.7) H Lymphocytes # (Auto) 0.9 x10^3/uL (1.0-4.8) L Monocytes # (Auto) 1.1 x10^3/uL (0.0-1.1) Eosinophils # (Auto) 0.0 x10^3/uL (0.0-0.7) Basophils # (Auto) 0.0 x10^3/uL (0.0-0.2) Platelet Estimate Pending Laboratory Tests 09/23/21 11:12 Vital Signs: Vital Signs Date Time Temp Pulse Resp B/P (MAP) Pulse Ox O2 Delivery O2 Flow Rate FiO2 09/23/21 11:24 98.0 85 19 91/53 (66) 97 Room Air 98.0 EKG: EKG: [11:[address] Briseno and Jose Miguel alvarado with ventricular premature complexes but no STEMI. Radiology/Procedures: Radiology/Procedures: [] Impression: [address] [address] IMAGING REPORT Signed PATIENT: ANKIT CORDOVA ACCOUNT: [id number] : 1935 LOCATION: ER AGE: 86 SEX: M EXAM STATUS: PRE ER ORD. PHYSICIAN: TOMAS ROA APRN REASON: afib PROCEDURE: PORTABLE CHEST 1V EXAM: Chest, single view. HISTORY: Atrial fibrillation. COMPARISON: 12/10/2020 FINDINGS: A frontal view of the chest is obtained. There are small bilateral pleural effusions. There is bilateral lower lobe atelectasis or interstitial infiltrate. The heart is normal in size. There is no pneumothorax. There is a right internal jugular catheter with the tip in the right atrium. There is a left upper extremity arterial stent. IMPRESSION: 1. Small pleural effusions with bilateral lower lobe atelectasis or interstitial infiltrate. 2. Right internal jugular catheter with the tip overlying expected location of the right atrium. Electronically signed by: Lauren Hyatt MD (09/23/2021 11:42 AM) [id number] DICTATED and SIGNED BY: LAUREN HYATT MD DATE: 09/23/21 [id number] [place] [address] IMAGING REPORT Signed PATIENT: ANKIT CORDOVA ACCOUNT: [id number] : 1935 LOCATION: ER AGE: 86 SEX: M EXAM STATUS: REG ER ORD. PHYSICIAN: TOMAS ROA APRN REASON: ams PROCEDURE: CT HEAD WO CONTRAST EXAM: Head CT without contrast. HISTORY: Altered mental status. TECHNIQUE: Computed tomographic images of the head were obtained without contrast. *One or more of the following individualized dose reduction techniques were utilized for this examination: 1. Automated exposure control. 2. Adjustment of the mA and/or kV according to patient size. 3. Use of iterative reconstruction technique. COMPARISON: 09/01/2021. FINDINGS: There is no acute or subacute extra-axial or intraparenchymal hemorrhage. There is no mass effect or midline shift. There is no hydrocephalus. There are areas of decreased attenuation within the cerebral white matter, nonspecific and likely related to chronic small vessel disease. There is cerebral atrophy. There is calcification along the falx and tentorium. There is evidence of lens surgery. There is fluid within the sphenoid sinus. There is minimal mastoid fluid. No calvarial lesion is seen. IMPRESSION: 1. No acute intracranial finding. MRI is more sensitive for acute infarction. 2. Bilateral cerebral white matter changes, most commonly due to chronic small vessel disease in a patient of this age. 3. Cerebral volume loss. Electronically signed by: Lauren Hyatt MD (09/23/2021 11:54 AM) [id number] DICTATED and SIGNED BY: LAUREN HYATT MD DATE: 09/23/21 1153 Course & Med Decision Making: Course & Med Decision Making Pertinent Labs and Imaging studies reviewed. (See chart for details) See HPI. Alert and oriented x4. Speaks in full clear sentences. He does answer my questions appropriately. Nursing staff states that he is altered more than usual. His hemoglobin is 6.7. I have ordered 1 unit of blood for the patient. CT of the head showed no acute findings. He had a small pleural effusion on the chest x-ray. His troponin is elevated at 235 which on September 02 it was 160. Yesterday blood work was done and his hemoglobin was 7.8 but today is 6.7. Potassium is at 2.8 and I have ordered potassium for the patient IV. His BUN and creatinine is also more elevated than it has been. Patient is pale. Hypotensive 90s over 40s. He has no other complaints except for his chronic complaint of coccyx pain. His PTT came back greater than 150. I admitted him to Dr. Holguin. Dr. Holguin states nothing needs to be done for the PTT at this time. He gave no other orders then what I have already done for the patient. I spoke to Dr. Friedman and she states that as long as his blood work comes back better tomorrow that he can get dialysis tomorrow. She gave no other orders. [] Ally Disclaimer: Ally Disclaimer: This electronic medical record was generated, in whole or in part, using a voice recognition dictation system. Departure Departure Impression: Primary Impression: Low hemoglobin Additional Impressions: Hypotension Qualified Codes: I95.9 - Hypotension, unspecified Hypokalemia Disposition: ADMITTED INPATIENT Admitting Physician: GAYATRI Condition: STABLE Referrals: ISAAC WONG MD (PCP) TOMAS ROA CORPORATE TRAVEL AGENT September 23, 2021 11:59
[2021-09-23 12:07] LABS: PROTHROMBIN TIME PATIENT 13.9 SEC (11.7-14.0)
[2021-09-23] MEDS: POTASSIUM CHLORIDE 10MEQ 100 ML IV SCH ×4 (12:30→15:04)
[2021-09-23 13:43] VITALS: BP 118/52
[2021-09-23 13:58] VITALS: BP 104/55
[2021-09-23 14:16] LABS: % LYMPHS 4 % (24-48); % MONOS 4 % (0-10); % SEGS 92 % (35-66); PLT ESTIMATE ADEQUATE (ADEQUATE)
--- NOTE | 2021-09-23 14:32 | HP ---
DATE OF SERVICE: 09/23/2021 ADMIT DATE: 09/23/2021 CHIEF COMPLAINT: Tachycardia. HISTORY OF PRESENT ILLNESS: The patient is a pleasant 86-year-old male who is on dialysis. While on dialysis today, he developed atrial fibrillation with a rate into the 160s. They sent him to the ER. He now is back to sinus rhythm. His potassium is low at 2.8. His hemoglobin is down to 6. I discussed the case with ER physician. We are going to admit the patient and consult Nephrology and Cardiology. PAST MEDICAL HISTORY: End-stage renal disease, on dialysis, anemia, diabetes, hypertension, hypothyroidism, dialysis graft shunt revision in 09/2021. ALLERGIES: None. FAMILY HISTORY: Diabetes. SOCIAL HISTORY: He does not drink, smoke or take drugs. He is retired. MEDICATIONS: Reviewed, please refer to the MRAD. REVIEW OF SYSTEMS: GENERAL: No history of weight change, weakness or fevers. SKIN: No bruising, hair changes or rashes. EYES: No blurred, double or loss of vision. NOSE AND THROAT: No history of nosebleeds, hoarseness or sore throat. HEART: No history of palpitations, chest pain or shortness of breath on exertion. LUNGS: Denies cough, hemoptysis, wheezing or shortness of breath. GASTROINTESTINAL: Denies changes in appetite, nausea, vomiting, diarrhea or constipation. GENITOURINARY: No history of frequency, urgency, hesitancy or nocturia. NEUROLOGIC: Denies history of numbness, tingling, tremor or weakness. PSYCHIATRIC: No history of panic, anxiety or depression. ENDOCRINE: No history of heat or cold intolerance, polyuria or polydipsia. EXTREMITIES: Denies muscle weakness, joint pain, pain on walking or stiffness. PHYSICAL EXAMINATION: VITALS: Within normal limits and are stable. GENERAL: No apparent distress. Alert and oriented. HEENT: Normal cephalic atraumatic, external auditory canals are patent. EYES: Extraocular muscles are intact, pupils are equally round and reactive to light and accommodation. MUSCULOSKELETAL: Well developed, well nourished, good range of motion. ENDOCRINE: No thyromegaly was palpated. LYMPHATICS: No cervical chain or axillary nodes were noted. HEMATOPOIETIC: No bruising. NECK: Supple, no JVD, no thyromegaly was noted. LUNGS: Clear to auscultation in all lung huffman without rhonchi or wheezing. HEART: RRR, S1, S2 present. Peripheral pulses intact, no obvious murmurs were noted. ABDOMEN: Soft, nontender. Positive bowel sounds no organomegaly, normal bowel sounds. EXTREMITIES: Without any cyanosis, clubbing, or edema. Pedal pulses intact, Homans sign is negative. NEUROLOGIC: Normal speech, normal tone. A and O x 3, moves all extremities, no obvious focal deficits. PSYCHIATRIC: Normal affect, normal mood. Stable. SKIN: No ulcerations or rashes, good skin turgor, no jaundice. VASCULAR: Good capillary refill, neurovascular bundle appears to be intact. LABORATORY DATA: INR is 1.1. Potassium is 2.8. Hemoglobin 6.7. ASSESSMENT AND PLAN: Resolving atrial fibrillation with rapid ventricular response, hypokalemia, severe anemia and coagulopathy. The patient has been admitted. We will transfuse 1 unit of packed red blood cells. Consult Nephrology, consult Cardiology. P.r.n. negative chronotropic agents, home meds. Deep venous thrombosis prophylaxis. Full code. SHASHA DR: Eleazar TID: [id number]
--- NOTE | 2021-09-23 14:50 | PDOC2 ---
PEDRO GARCIA VP SOFTWARE 09/23/21 1450: CARDIAC CONSULT DATE OF CONSULT Date of Consult DATE: 09/23/21 TIME: 14:07 REASON FOR CONSULT Reason for Consult: AFIB elevated troponin REFERRING PHYSICIAN Referring Physician: Chichi SOURCE Source: Caregiver (spouse), Chart review, Patient HISTORY OF PRESENT ILLNESS HISTORY OF PRESENT ILLNESS This is an 86 yo male admitted for AFIB RVR noted while having dialysis and was also noted with hypotension. He is s/p left arm dialysis shunt revision yesterday. Denies any chest pain, SOA or nausea. He was having dialysis when he started not feeling ok and was acting confuse. No strips available from dialysis center to review re AFIB but his HR was noted in the 160s. Presntly he is back in SR including 12 lead EKG and is getting blood transfusion. [facility]. PAST MEDICAL HISTORY Past Medical History Cardiovascular: CAD, HTN, Hyperlipidemia Pulmonary: No pertinent hx CENTRAL NERVOUS SYSTEM: Other (no pertinent history) GI: Constipation Heme/Onc: No pertinent hx Hepatobiliary: No pertinent hx Psych: No pertinent hx Musculoskeletal: Osteoarthritis Rheumatologic: No pertinent hx Infectious disease: No pertinent hx ENT: No pertinent hx Renal/: Chronic renal insuff Endocrine: Hypothyroidism Dermatology: No pertinent hx PAST SURGICAL HISTORY Past Surgical History Total knee replacement (Left), Other (LA AV dialysis fistula, PCI) FAMILY HISTORY Family History: Hypertension SOCIAL HISTORY Smoke: Quit ALCOHOL: occassional Drugs: None Lives: with Family CURRENT MEDICATIONS CURRENT MEDICATIONS Current Medications Medications (Trade) Dose Ordered Sig/Krzysztof Route PRN Reason Start Time Stop Time Status Last Admin Dose Admin Potassium Chloride/Water 100 ml @ 100 mls/hr Q1H IV 09/23/21 12:00 09/23/21 15:59 09/23/21 13:09 ALLERGIES ALLERGIES: Coded Allergies: No Known Drug Allergies (Unverified , 04/26/21) ROS Review of System 14 point ROS evaluated with pertinent positives noted per HPI PHYSICAL EXAM General: Alert, Oriented X3, Cooperative, No acute distress HEENT: Atraumatic, Mucous membr. moist/pink Lungs: Other (diminished ) Heart: Regular rate (SR), Normal S1, Normal S2, Other (2/6 systolic murmur to LLS border) Abdomen: Soft, No tenderness Extremities: No cyanosis, Other (anasarca ) Skin: No rashes, Other (generalized arm ecchymoses; pale) Neuro: Normal speech, Sensation intact Psych/Mental Status: Mental status NL, Mood NL MUSCULOSKELETAL: Osteoarthritic changes both hands VITALS/I&O VITALS/I&O: Vital Signs Date Time Temp Pulse Resp B/P (MAP) Pulse Ox O2 Delivery O2 Flow Rate FiO2 09/23/21 13:43 97.7 87 15 118/52 97.7 09/23/21 11:24 97 Room Air LABS Lab: Laboratory Tests Test 09/23/21 11:12 09/23/21 11:50 White Blood Count 15.6 x10^3/uL (4.0-11.0) H Red Blood Count 1.85 x10^6/uL (4.30-5.70) L Hemoglobin 6.7 g/dL (13.0-17.5) *L Hematocrit 20.2 % (39.0-53.0) L Mean Corpuscular Volume 109 fL (79-100) H Mean Corpuscular Hemoglobin 37 pg (25-35) H Mean Corpuscular Hemoglobin Concent 33 g/dL (31-37) Red Cell Distribution Width 15.0 % (11.5-14.5) H Platelet Count 327 x10^3/uL (140-400) Neutrophils (%) (Auto) 87 % (31-73) H Lymphocytes (%) (Auto) 6 % (24-48) L Monocytes (%) (Auto) 7 % (0-9) Eosinophils (%) (Auto) 0 % (0-3) Basophils (%) (Auto) 0 % (0-3) Neutrophils # (Auto) 13.6 x10^3/uL (1.8-7.7) H Lymphocytes # (Auto) 0.9 x10^3/uL (1.0-4.8) L Monocytes # (Auto) 1.1 x10^3/uL (0.0-1.1) Eosinophils # (Auto) 0.0 x10^3/uL (0.0-0.7) Basophils # (Auto) 0.0 x10^3/uL (0.0-0.2) Platelet Estimate Pending Sodium Level 138 mmol/L (136-145) Potassium Level 2.8 mmol/L (3.5-5.1) *L Chloride Level 102 mmol/L (98-107) Carbon Dioxide Level 26 mmol/L (21-32) Anion Gap 10 (6-14) Blood Urea Nitrogen 34 mg/dL (8-26) H Creatinine 3.9 mg/dL (0.7-1.3) H Estimated GFR (Cockcroft-Gault) 14.7 BUN/Creatinine Ratio 9 (6-20) Glucose Level 160 mg/dL (70-99) H Calcium Level 7.3 mg/dL (8.5-10.1) L Magnesium Level 1.9 mg/dL (1.8-2.4) Total Bilirubin 0.4 mg/dL (0.2-1.0) Aspartate Amino Transferase (AST) 37 U/L (15-37) Alanine Aminotransferase (ALT) 29 U/L (16-63) Alkaline Phosphatase 75 U/L (46-116) Troponin I High Sensitivity 235 ng/L (4-75) H Total Protein 4.1 g/dL (6.4-8.2) L Albumin 0.9 g/dL (3.4-5.0) L Albumin/Globulin Ratio 0.3 (1.0-1.7) L Prothrombin Time 13.9 SEC (11.7-14.0) Prothrombin Time INR 1.1 (0.8-1.1) Activated Partial Thromboplast Time > 150 SEC (24-38) *H Laboratory Tests 09/23/21 11:12 Laboratory Tests 09/23/21 11:12 ECHOCARDIOGRAM ECHOCARDIOGRAM <Conclusion> The left ventricular systolic function is normal. Estimated ejection fraction 60%. There is normal LV segmental wall motion. Transmitral Doppler flow pattern is Grade I-abnormal relaxation pattern. Mild mitral regurgitation. Mild tricuspid regurgitation. Estimated PAP 30 mmHg. There is no evidence of significant pericardial effusion. DATE: 09/06/21 1723 ASSESSMENT/PLAN ASSESSMENT/PLAN 1. AFIB RVR: new finding in the setting of hypokalemia and anemia. Nostrips available to review from dialysis center. Presently back in SR with no prior hx of AFIB 2. Hypokalemia 3. Macrocytic anemia: Hgb 6.7, no obvious bleed 4. Hx of syncope related to orthostasis 5. CAD: past stents. clinically stable 6. HTN: controlled. reported hypotension during HD possibly due to RVR 7. ESRD 8. Presyncope 9. Anasarca-POA 10. Mild troponin elevation: no CP. Suspect demand mediated with RVR and anemia. Recent TTE with nml EF and WM Recommendations Continue midodrine, continue mechanical compression Transfuse per protocol, K has been replaced. Monitor rhythm and will use metoprolol or Dig PRN for AFIB recurrence pending BP trend Secondary prevention Fluid management via HD Supportive care Follow up with Sonali Lopez at upon discharge. I did contact them and they will make arrangement for him to get an event monitor as an outpt to ascertain AFIB burden SUNNI RAMOS MD 09/23/21 1701: CARDIAC CONSULT ASSESSMENT/PLAN ASSESSMENT/PLAN Patient seen and examined He is recently feeling significantly better this evening. He has resumed a sinus rhythm. I agree with our nurse practitioners assessment and plan. AFIB RVR: new finding in the setting of hypokalemia and anemia. No strips available to review from dialysis center. He is now back in sinus rhythm. No known history of previous atrial fibrillation. Arranging outpatient monitoring. Hypokalemia. Potassium 2.8. Being replaced. Macrocytic anemia: Hgb 6.7, no obvious bleed. Transfusion as per the renal service. Hx of syncope related to orthostasis CAD: past stents. clinically stable HTN: controlled. reported hypotension during HD possibly due to RVR ESRD. Followed by renal. Presyncope Anasarca-POA Mild troponin elevation: no CP. Suspect demand mediated with RVR and anemia. Recent TTE with nml EF and WM PEDRO GARCIA APRN September 23, 2021 14:50 SUNNI RAMOS MD September 23, 2021 17:01
[2021-09-23 15:00] VITALS: BP 110/53
[2021-09-23 15:36] VITALS: BP 110/75
[2021-09-23 19:00] VITALS: BP 105/52
[2021-09-23 23:00] VITALS: BP 131/50
[2021-09-24 03:00] VITALS: BP 144/61
--- NOTE | 2021-09-24 06:04 | EKG ---
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
[2021-09-24 06:36] VITALS: BP 113/50
[2021-09-24] MEDS ORDERED: DIALYSIS PATIENT. MC PRN ×2 (07:30)
[2021-09-24] MEDS ORDERED: ACETAMINOPHEN 325 MG TABLET. PO PRN (09:30)
[2021-09-24] MEDS ORDERED: DICLOFENAC SODIUM 1% TOPICAL GEL 100GM TUBE. TP PRN (09:30)
[2021-09-24] MEDS ORDERED: fentaNYL PF VIAL 100 MCG/2 ML VIAL IVP PRN (09:30)
[2021-09-24] MEDS ORDERED: traMADol 50 MG TABLET PO PRN (09:30)
[2021-09-24] MEDS ORDERED: POLYETHYLENE GLYCOL 3350 17 GM PACKET. PO PRN (09:30)
[2021-09-24] MEDS ORDERED: ONDANSETRON PF 4 MG/2 ML VIAL. IVP PRN (09:30)
--- NOTE | 2021-09-24 09:41 | PDOC ---
[employer] PROGRESS NOTE Date of Service DOS: DATE: 09/24/21 TIME: 09:31 Chief Complaint Chief Complaint Acute anemia Hypokalemia Bilateral pleural effusions CAD status post stent x4 - stable.Follows [facility], [facility] Hypothyroidism - on replacement HTN - Given age over 80 may be more liberal blood pressure parameters should be pursued 150/90 as threshold for tx and as needed midodrine on dialysis days ESRD on HD since December 2020 - dialysis per nephrology Hypokalemia - monitor, replace per nephrology Severe protein calorie malnutrition - likely related to ESRD status, nutrition FEN - Renal dialysis PPX - SCDs FULL CODE Dispo - inpatient History of Present Illness History of Present Illness is an 86-year-old male with PMHx CAD status post stent x4, hypothyroidism, HTN, ESRD on HD since December 2020 who presents to the ED from dialysis confused and in AFIB RVR which was noted while having dialysis as well as hypotension. He is s/p left upper extremity AV graft thrombectomy and angioplasty on 09/22/21. EKG in ED begins irregular and then appears sinus rhythm within 6 seconds. WBC 15.6, Hb 6.7 with MCV 109, platelets 327, PTT greater than 150, INR 1.1, NA 138, K2.8, BUN 34, CR 3.9, glucose 160, albumin 0.9, high-sensitivity troponin was 235. Head CT with no acute abnormalities chest radiograph bilateral pleural effusions. 09/24: Tolerated dialysis today. A little less confused. Blood pressure low and still tachycardic being closely monitored on telemetry. Transfuse for Hb of 6.7 improved to 8.6. Still with large leukocytosis. Vitals/I&O Vitals/I&O: Vital Signs Date Time Temp Pulse Resp B/P (MAP) Pulse Ox O2 Delivery O2 Flow Rate FiO2 09/24/21 08:00 Room Air 09/24/21 06:36 97.8 99 16 113/50 (71) 97 97.8 I & O 09/23/21 09/23/21 09/24/21 15:00 23:00 07:00 Intake Total 200 ml 0 ml Output Total 100 ml Balance 200 ml -100 ml Physical Exam General: Alert, Oriented X3, Cooperative, No acute distress Heart: Regular rate (SR), Normal S1, Normal S2, Other (2/6 systolic murmur to L LS border) Lungs: Clear Abdomen: Soft, No tenderness Extremities: No cyanosis, Other (anasarca ) Skin: No rashes, Other (generalized arm ecchymoses; pale) Labs Labs: Laboratory Tests Test 09/23/21 11:12 09/23/21 11:50 White Blood Count 15.6 x10^3/uL (4.0-11.0) Red Blood Count 1.85 x10^6/uL (4.30-5.70) Hemoglobin 6.7 g/dL (13.0-17.5) Hematocrit 20.2 % (39.0-53.0) Mean Corpuscular Volume 109 fL (79-100) Mean Corpuscular Hemoglobin 37 pg (25-35) Mean Corpuscular Hemoglobin Concent 33 g/dL (31-37) Red Cell Distribution Width 15.0 % (11.5-14.5) Platelet Count 327 x10^3/uL (140-400) Neutrophils (%) (Auto) 87 % (31-73) Lymphocytes (%) (Auto) 6 % (24-48) Monocytes (%) (Auto) 7 % (0-9) Eosinophils (%) (Auto) 0 % (0-3) Basophils (%) (Auto) 0 % (0-3) Neutrophils # (Auto) 13.6 x10^3/uL (1.8-7.7) Lymphocytes # (Auto) 0.9 x10^3/uL (1.0-4.8) Monocytes # (Auto) 1.1 x10^3/uL (0.0-1.1) Eosinophils # (Auto) 0.0 x10^3/uL (0.0-0.7) Basophils # (Auto) 0.0 x10^3/uL (0.0-0.2) Segmented Neutrophils % 92 % (35-66) Lymphocytes % 4 % (24-48) Monocytes % 4 % (0-10) Platelet Estimate Adequate (ADEQUATE) Sodium Level 138 mmol/L (136-145) Potassium Level 2.8 mmol/L (3.5-5.1) Chloride Level 102 mmol/L (98-107) Carbon Dioxide Level 26 mmol/L (21-32) Anion Gap 10 (6-14) Blood Urea Nitrogen 34 mg/dL (8-26) Creatinine 3.9 mg/dL (0.7-1.3) Estimated GFR (Cockcroft-Gault) 14.7 BUN/Creatinine Ratio 9 (6-20) Glucose Level 160 mg/dL (70-99) Calcium Level 7.3 mg/dL (8.5-10.1) Magnesium Level 1.9 mg/dL (1.8-2.4) Total Bilirubin 0.4 mg/dL (0.2-1.0) Aspartate Amino Transf (AST/SGOT) 37 U/L (15-37) Alanine Aminotransferase (ALT/SGPT) 29 U/L (16-63) Alkaline Phosphatase 75 U/L (46-116) Troponin I High Sensitivity 235 ng/L (4-75) Total Protein 4.1 g/dL (6.4-8.2) Albumin 0.9 g/dL (3.4-5.0) Albumin/Globulin Ratio 0.3 (1.0-1.7) Prothrombin Time 13.9 SEC (11.7-14.0) Prothromb Time International Ratio 1.1 (0.8-1.1) Activated Partial Thromboplast Time > 150 SEC (24-38) Assessment and Plan Assessmemt and Plan Problems Medical Problems: (1) Hypokalemia Status: Acute (2) Hypotension Status: Acute (3) Low hemoglobin Status: Acute Comment Review of Relevant I have reviewed the following items madonna (where applicable) has been applied. Medications: Current Medications Medications (Trade) Dose Ordered Sig/Krzysztof Route PRN Reason Start Time Stop Time Status Last Admin Dose Admin Potassium Chloride/Water 100 ml @ 100 mls/hr Q1H IV 09/23/21 12:00 09/23/21 15:59 DC 09/23/21 15:04 Justifications for Admission Other Justification ROSALIO SPRINGER MD September 24, 2021 09:41
--- NOTE | 2021-09-24 10:01 | PDOC2 ---
CARDIOLOGY CONSULT NOTE DATE OF SERVICE: DATE: 09/24/21 TIME: 09:47 CHIEF COMPLAINT: Afib HPI: The pt was seen in during his dialysis treatment. No acute events overnight. He reports feeling better today. He reported mild SOB on exertion when working with nursing staff this morning other than that he denies chest pain, palpitations, SOB at rest, headache, dizziness. PMHX: ESRD on dialysis DM HTN Hypothyroidism Anemia CURRENT MEDS: Current Medications Medications (Trade) Dose Ordered Sig/Krzysztof Route PRN Reason Start Time Stop Time Status Last Admin Dose Admin Potassium Chloride/Water 100 ml @ 100 mls/hr Q1H IV 09/23/21 12:00 09/23/21 15:59 DC 09/23/21 15:04 ALLERGIES: Allergies Coded Allergies Type Severity Reaction Last Updated Verified No Known Drug Allergies 04/26/21 No ROS: 14 point ROS is normal unless specified above. PHYSICAL EXAM: Vital Signs/I&O: Vital Signs Date Time Temp Pulse Resp B/P (MAP) Pulse Ox O2 Delivery O2 Flow Rate FiO2 09/24/21 08:00 Room Air 09/24/21 06:36 97.8 99 16 113/50 (71) 97 97.8 I & O 09/23/21 09/23/21 09/24/21 15:00 23:00 07:00 Intake Total 200 ml 0 ml Output Total 100 ml Balance 200 ml -100 ml Physical Exam: General: pt laying comfortably in bed, no acute distress, dialysis connected to right chest port Heart: RRR no m/r/c, pulses symmetric throughout extremities Lungs: CTAB, no wheezing, rhonchi, rales Neruo: no focal deficits noted, moves all extremities Extremities: generalized 1+ edema is both upper and lower distal extremities, right UE bandaged from port revision DIAGNOSTIC TESTING: Lab Laboratory Tests Test 09/23/21 11:12 09/23/21 11:50 White Blood Count 15.6 x10^3/uL (4.0-11.0) H Red Blood Count 1.85 x10^6/uL (4.30-5.70) L Hemoglobin 6.7 g/dL (13.0-17.5) *L Hematocrit 20.2 % (39.0-53.0) L Mean Corpuscular Volume 109 fL (79-100) H Mean Corpuscular Hemoglobin 37 pg (25-35) H Mean Corpuscular Hemoglobin Concent 33 g/dL (31-37) Red Cell Distribution Width 15.0 % (11.5-14.5) H Platelet Count 327 x10^3/uL (140-400) Neutrophils (%) (Auto) 87 % (31-73) H Lymphocytes (%) (Auto) 6 % (24-48) L Monocytes (%) (Auto) 7 % (0-9) Eosinophils (%) (Auto) 0 % (0-3) Basophils (%) (Auto) 0 % (0-3) Neutrophils # (Auto) 13.6 x10^3/uL (1.8-7.7) H Lymphocytes # (Auto) 0.9 x10^3/uL (1.0-4.8) L Monocytes # (Auto) 1.1 x10^3/uL (0.0-1.1) Eosinophils # (Auto) 0.0 x10^3/uL (0.0-0.7) Basophils # (Auto) 0.0 x10^3/uL (0.0-0.2) Segmented Neutrophils % 92 % (35-66) H Lymphocytes % 4 % (24-48) L Monocytes % 4 % (0-10) Platelet Estimate Adequate (ADEQUATE) Sodium Level 138 mmol/L (136-145) Potassium Level 2.8 mmol/L (3.5-5.1) *L Chloride Level 102 mmol/L (98-107) Carbon Dioxide Level 26 mmol/L (21-32) Anion Gap 10 (6-14) Blood Urea Nitrogen 34 mg/dL (8-26) H Creatinine 3.9 mg/dL (0.7-1.3) H Estimated GFR (Cockcroft-Gault) 14.7 BUN/Creatinine Ratio 9 (6-20) Glucose Level 160 mg/dL (70-99) H Calcium Level 7.3 mg/dL (8.5-10.1) L Total Bilirubin 0.4 mg/dL (0.2-1.0) Aspartate Amino Transf (AST/SGOT) 37 U/L (15-37) Alkaline Phosphatase 75 U/L (46-116) Troponin I High Sensitivity 235 ng/L (4-75) H Total Protein 4.1 g/dL (6.4-8.2) L Albumin 0.9 g/dL (3.4-5.0) L Albumin/Globulin Ratio 0.3 (1.0-1.7) L Prothrombin Time 13.9 SEC (11.7-14.0) Prothromb Time International Ratio 1.1 (0.8-1.1) Activated Partial Thromboplast Time > 150 SEC (24-38) *H Laboratory Tests 09/23/21 11:12 ASSESSMENT: 1. AFIB RVR: new finding in the setting of hypokalemia and anemia. Nostrips available to review from dialysis center. Presently back in SR with no prior hx of AFIB 2. Hypokalemia 3. Macrocytic anemia: Hgb 6.7, no obvious bleed 4. Hx of syncope related to orthostasis 5. CAD: past stents. clinically stable 6. HTN: controlled. reported hypotension during HD possibly due to RVR 7. ESRD 8. Presyncope 9. Anasarca-POA 10. Mild troponin elevation: no CP. Suspect demand mediated with RVR and anemia. Recent TTE with nml EF and WM Recommendations Continue midodrine, continue mechanical compression Transfuse per protocol, K has been replaced. Monitor rhythm and will use metoprolol or Dig PRN for AFIB recurrence pending BP trend Secondary prevention Fluid management via HD Supportive care Follow up with Sonali Lopez at upon discharge. They will f/u with patient regarding his afib burden. Need to determine dry weight. Supportive. This is progress note only. BENITEZ MINAYA MD September 24, 2021 10:01
[2021-09-24 10:04] LABS: BASO % 0 % (0-3); EOS % 0 % (0-3); HEMATOCRIT 25.4 % (39.0-53.0); HEMOGLOBIN 8.6 g/dL (13.0-17.5); LYMPH # 1.4 x10^3/uL (1.0-4.8); LYMPH % 8 % (24-48); MEAN CORPUSCULAR HEMOGLOBIN 35 pg (25-35); MEAN CORPUSCULAR HGB CONC 34 g/dL (31-37); MEAN CORPUSCULAR VOLUME 104 fL (79-100); MONO # 1.2 x10^3/uL (0.0-1.1); MONO % 7 % (0-9); NEUT # 13.8 x10^3/uL (1.8-7.7); NEUT % 84 % (31-73); PLATELET COUNT 300 x10^3/uL (140-400); RED BLOOD COUNT 2.45 x10^6/uL (4.30-5.70); RED CELL DISTRIBUTION WIDTH 18.4 % (11.5-14.5); WHITE BLOOD COUNT 16.4 x10^3/uL (4.0-11.0)
[2021-09-24 10:11] LABS: CALCIUM 7.5 mg/dL (8.5-10.1); CREATININE 4.5 mg/dL (0.7-1.3); GFR 12.5
[2021-09-24] MEDS ORDERED: ALBUMIN HUMAN 25% 200 ML IV PRN (10:15)
[2021-09-24 10:16] LABS: ALBUMIN 1.1 g/dL (3.4-5.0); ALBUMIN/GLOBULIN RATIO 0.3 (1.0-1.7); TOTAL BILIRUBIN 0.4 mg/dL (0.2-1.0); TOTAL PROTEIN 4.5 g/dL (6.4-8.2)
--- NOTE | 2021-09-24 11:06 | PDOC2 ---
CONSULT Date of Consult Date of Consult DATE: 09/24/21 TIME: 11:00 Reason for Consult Reason for Consult: ESRD Referring Physician Referring Physician: MISBAH Identification/Chief Complaint Chief Complaint CONFUSION, WEAKNESS History of Present Illness Reason for Visit: THIS IS AN 86 YR OLD WITH ESRD. HAS OP HD ON MWF. ADMITTED WITH LOW BP AND AFIV RVR. HAD REVISION OF HIS LEFT ARM AV ACCESS ON SUNDAY AND NOW HAS A RIGHT IJ TDC FOR DIALYSIS ACCESS. LABS C/W ESRD. HAS SOME CONFUSION. CARDIOLOGY EVALUATION ONGOING. HAS SEVERE ANEMIA WELL FOR WHICH HE HAD PRBC. HAS LOW K WHICH HAS BEEN REPLACED. HE ALSO HAS LEUCOCYTOSIS Past Medical History Cardiovascular: CAD, HTN, Hyperlipidemia Pulmonary: No pertinent hx CENTRAL NERVOUS SYSTEM: Other GI: Constipation Heme/Onc: No pertinent hx Hepatobiliary: No pertinent hx Psych: No pertinent hx Musculoskeletal: Osteoarthritis Rheumatologic: No pertinent hx Infectious disease: No pertinent hx Renal/: Chronic renal failure Endocrine: Hypothyroidism Past Surgical History Past Surgical History: Cataract Removal, Other Family History Family History: Hypertension Social History Quit ALCOHOL: occassional Drugs: None Lives: with Family Current Problem List Problem List Problems Medical Problems: (1) Hypokalemia Status: Acute (2) Hypotension Status: Acute (3) Low hemoglobin Status: Acute Current Medications Current Medications Current Medications Potassium Chloride/Water 100 ml @ 100 mls/hr Q1H IV Last administered on 09/23/21at 15:04; Start 09/23/21 at 12:00; Stop 09/23/21 at 15:59; Status DC Info (PHARMACY MONITORING -- do not chart) 1 each PRN DAILY PRN MC SEE COMMENTS; Start 09/24/21 at 07:30; Status UNV Info (PHARMACY MONITORING -- do not chart) 1 each PRN DAILY PRN MC SEE COMMENTS; Start 09/24/21 at 07:30 Ondansetron HCl (Zofran) 4 mg PRN Q4HRS PRN IVP NAUSEA/VOMITING; Start 09/24/21 at 09:30 Acetaminophen (Tylenol) 650 mg PRN Q6HRS PRN PO MILD PAIN / TEMP > 100.3'F; Start 09/24/21 at 09:30 Tramadol HCl (Ultram) 50 mg PRN Q6HRS PRN PO MODERATE PAIN; Start 09/24/21 at 09:30 Fentanyl Citrate (Fentanyl 2ml Vial) 25 mcg PRN Q3HRS PRN IVP SEVERE PAIN 7-10; Start 09/24/21 at 09:30 Diclofenac Sodium (Voltaren) 2 joselyn PRN QID PRN TP PAIN; Start 09/24/21 at 09:30 Fludrocortisone Acetate (Florinef) 0.2 mg DAILY PO ; Start 09/24/21 at 10:00 Vitamin B Complex/ Vitamin C (Ruth-Russ) 1 tab DAILY PO ; Start 09/24/21 at 10:00 Levothyroxine Sodium (Synthroid) 88 mcg DAILY06 PO ; Start 09/24/21 at 11:30 Midodrine (Proamatine) 5 mg TID@0900,1300,1700 PO ; Start 09/24/21 at 10:00 Polyethylene Glycol (miraLAX PACKET) 17 gm PRN DAILY PRN PO CONSTIPATION; Start 09/24/21 at 09:30 Ranolazine (Ranexa) 500 mg BID PO ; Start 09/24/21 at 10:00 Senna/Docusate Sodium (Senna Plus) 2 tab BID PO ; Start 09/24/21 at 10:00 Ergocalciferol (Vitamin D2) 50,000 unit Fr@0900 PO ; Start 09/30/21 at 09:00 Atorvastatin Calcium (Lipitor) 80 mg HS PO ; Start 09/24/21 at 21:00 Albumin Human 200 ml @ 200 mls/hr 1X PRN PRN IV Hypotension; Start 09/24/21 at 10:15; Stop 09/24/21 at 16:14 Active Scripts Active Reported Acetaminophen 325 Mg Tablet 650 Mg PO PRN Q6HRS PRN Polyethylene Glycol 3350 17 Gm Powd.pack 17 Gm PO PRN DAILY PRN Arthritis Pain (Diclofenac Sodium) 100 Gm Gel..gram. 2 Gm TP PRN QID PRN Fludrocortisone Acetate 0.1 Mg Tablet 0.2 Mg PO DAILY Midodrine Hcl 5 Mg Tablet 5 Mg PO TID Tramadol Hcl 50 Mg Tablet 25 Mg PO PRN Q12HR PRN Senna-Docusate Sodium Tablet (Sennosides/Docusate Sodium) 1 Each Tablet 2 Tab PO BID 20 Days Renal Vitamin Tablet (Folic Acid/Vit Bcomp,C) 0.8 Mg Tablet 0.8 Mg PO DAILY Vitamin D3 (Cholecalciferol (Vitamin D3)) 125 Mcg Tablet 1,250 Mcg PO QFR Take at 0700 Zetia (Ezetimibe) 10 Mg Tablet 10 Mg PO DAILY Synthroid (Levothyroxine Sodium) 75 Mcg Tablet 88 Mcg PO DAILYAC Ranexa (Ranolazine) 500 Mg Tab.er.12h 500 Mg PO BID Crestor (Rosuvastatin Calcium) 40 Mg Tablet 40 Mg PO HS Allergies Allergies: Coded Allergies: No Known Drug Allergies (Unverified , 04/26/21) ROS Review of System CONFUSED Physical Exam General: Alert, Cooperative, No acute distress HEENT: Atraumatic, PERRLA Lungs: Clear to auscultation Heart: Other (IRREGULAR AFIB) Abdomen: Normal bowel sounds Extremities: No clubbing Skin: No breakdown Neuro: Other (CONFUSED, NO ASYMMETRY) Psych/Mental Status: Other (FLAT) MUSCULOSKELETAL: No joint tenderness, No deformity Vitals VITALS Vital Signs Date Time Temp Pulse Resp B/P (MAP) Pulse Ox O2 Delivery O2 Flow Rate FiO2 09/24/21 08:00 Room Air 09/24/21 06:36 97.8 99 16 113/50 (71) 97 97.8 Labs Labs Laboratory Tests Test 09/23/21 11:12 09/23/21 11:50 09/24/21 08:53 White Blood Count 15.6 x10^3/uL (4.0-11.0) 16.4 x10^3/uL (4.0-11.0) Red Blood Count 1.85 x10^6/uL (4.30-5.70) 2.45 x10^6/uL (4.30-5.70) Hemoglobin 6.7 g/dL (13.0-17.5) 8.6 g/dL (13.0-17.5) Hematocrit 20.2 % (39.0-53.0) 25.4 % (39.0-53.0) Mean Corpuscular Volume 109 fL (79-100) 104 fL (79-100) Mean Corpuscular Hemoglobin 37 pg (25-35) 35 pg (25-35) Mean Corpuscular Hemoglobin Concent 33 g/dL (31-37) 34 g/dL (31-37) Red Cell Distribution Width 15.0 % (11.5-14.5) 18.4 % (11.5-14.5) Platelet Count 327 x10^3/uL (140-400) 300 x10^3/uL (140-400) Neutrophils (%) (Auto) 87 % (31-73) 84 % (31-73) Lymphocytes (%) (Auto) 6 % (24-48) 8 % (24-48) Monocytes (%) (Auto) 7 % (0-9) 7 % (0-9) Eosinophils (%) (Auto) 0 % (0-3) 0 % (0-3) Basophils (%) (Auto) 0 % (0-3) 0 % (0-3) Neutrophils # (Auto) 13.6 x10^3/uL (1.8-7.7) 13.8 x10^3/uL (1.8-7.7) Lymphocytes # (Auto) 0.9 x10^3/uL (1.0-4.8) 1.4 x10^3/uL (1.0-4.8) Monocytes # (Auto) 1.1 x10^3/uL (0.0-1.1) 1.2 x10^3/uL (0.0-1.1) Eosinophils # (Auto) 0.0 x10^3/uL (0.0-0.7) 0.0 x10^3/uL (0.0-0.7) Basophils # (Auto) 0.0 x10^3/uL (0.0-0.2) 0.0 x10^3/uL (0.0-0.2) Segmented Neutrophils % 92 % (35-66) Lymphocytes % 4 % (24-48) Monocytes % 4 % (0-10) Platelet Estimate Adequate (ADEQUATE) Sodium Level 138 mmol/L (136-145) 137 mmol/L (136-145) Potassium Level 2.8 mmol/L (3.5-5.1) 3.0 mmol/L (3.5-5.1) Chloride Level 102 mmol/L (98-107) 102 mmol/L (98-107) Carbon Dioxide Level 26 mmol/L (21-32) 26 mmol/L (21-32) Anion Gap 10 (6-14) 9 (6-14) Blood Urea Nitrogen 34 mg/dL (8-26) 39 mg/dL (8-26) Creatinine 3.9 mg/dL (0.7-1.3) 4.5 mg/dL (0.7-1.3) Estimated GFR (Cockcroft-Gault) 14.7 12.5 BUN/Creatinine Ratio 9 (6-20) 9 (6-20) Glucose Level 160 mg/dL (70-99) 96 mg/dL (70-99) Calcium Level 7.3 mg/dL (8.5-10.1) 7.5 mg/dL (8.5-10.1) Magnesium Level 1.9 mg/dL (1.8-2.4) Total Bilirubin 0.4 mg/dL (0.2-1.0) 0.4 mg/dL (0.2-1.0) Aspartate Amino Transf (AST/SGOT) 37 U/L (15-37) 32 U/L (15-37) Alanine Aminotransferase (ALT/SGPT) 29 U/L (16-63) 30 U/L (16-63) Alkaline Phosphatase 75 U/L (46-116) 77 U/L (46-116) Troponin I High Sensitivity 235 ng/L (4-75) Total Protein 4.1 g/dL (6.4-8.2) 4.5 g/dL (6.4-8.2) Albumin 0.9 g/dL (3.4-5.0) 1.1 g/dL (3.4-5.0) Albumin/Globulin Ratio 0.3 (1.0-1.7) 0.3 (1.0-1.7) Prothrombin Time 13.9 SEC (11.7-14.0) Prothromb Time International Ratio 1.1 (0.8-1.1) Activated Partial Thromboplast Time > 150 SEC (24-38) Laboratory Tests Test 09/23/21 11:12 09/23/21 11:50 09/24/21 08:53 White Blood Count 15.6 x10^3/uL (4.0-11.0) 16.4 x10^3/uL (4.0-11.0) Red Blood Count 1.85 x10^6/uL (4.30-5.70) 2.45 x10^6/uL (4.30-5.70) Hemoglobin 6.7 g/dL (13.0-17.5) 8.6 g/dL (13.0-17.5) Hematocrit 20.2 % (39.0-53.0) 25.4 % (39.0-53.0) Mean Corpuscular Volume 109 fL (79-100) 104 fL (79-100) Mean Corpuscular Hemoglobin 37 pg (25-35) 35 pg (25-35) Mean Corpuscular Hemoglobin Concent 33 g/dL (31-37) 34 g/dL (31-37) Red Cell Distribution Width 15.0 % (11.5-14.5) 18.4 % (11.5-14.5) Platelet Count 327 x10^3/uL (140-400) 300 x10^3/uL (140-400) Neutrophils (%) (Auto) 87 % (31-73) 84 % (31-73) Lymphocytes (%) (Auto) 6 % (24-48) 8 % (24-48) Monocytes (%) (Auto) 7 % (0-9) 7 % (0-9) Eosinophils (%) (Auto) 0 % (0-3) 0 % (0-3) Basophils (%) (Auto) 0 % (0-3) 0 % (0-3) Neutrophils # (Auto) 13.6 x10^3/uL (1.8-7.7) 13.8 x10^3/uL (1.8-7.7) Lymphocytes # (Auto) 0.9 x10^3/uL (1.0-4.8) 1.4 x10^3/uL (1.0-4.8) Monocytes # (Auto) 1.1 x10^3/uL (0.0-1.1) 1.2 x10^3/uL (0.0-1.1) Eosinophils # (Auto) 0.0 x10^3/uL (0.0-0.7) 0.0 x10^3/uL (0.0-0.7) Basophils # (Auto) 0.0 x10^3/uL (0.0-0.2) 0.0 x10^3/uL (0.0-0.2) Segmented Neutrophils % 92 % (35-66) Lymphocytes % 4 % (24-48) Monocytes % 4 % (0-10) Platelet Estimate Adequate (ADEQUATE) Sodium Level 138 mmol/L (136-145) 137 mmol/L (136-145) Potassium Level 2.8 mmol/L (3.5-5.1) 3.0 mmol/L (3.5-5.1) Chloride Level 102 mmol/L (98-107) 102 mmol/L (98-107) Carbon Dioxide Level 26 mmol/L (21-32) 26 mmol/L (21-32) Anion Gap 10 (6-14) 9 (6-14) Blood Urea Nitrogen 34 mg/dL (8-26) 39 mg/dL (8-26) Creatinine 3.9 mg/dL (0.7-1.3) 4.5 mg/dL (0.7-1.3) Estimated GFR (Cockcroft-Gault) 14.7 12.5 BUN/Creatinine Ratio 9 (6-20) 9 (6-20) Glucose Level 160 mg/dL (70-99) 96 mg/dL (70-99) Calcium Level 7.3 mg/dL (8.5-10.1) 7.5 mg/dL (8.5-10.1) Magnesium Level 1.9 mg/dL (1.8-2.4) Total Bilirubin 0.4 mg/dL (0.2-1.0) 0.4 mg/dL (0.2-1.0) Aspartate Amino Transf (AST/SGOT) 37 U/L (15-37) 32 U/L (15-37) Alanine Aminotransferase (ALT/SGPT) 29 U/L (16-63) 30 U/L (16-63) Alkaline Phosphatase 75 U/L (46-116) 77 U/L (46-116) Troponin I High Sensitivity 235 ng/L (4-75) Total Protein 4.1 g/dL (6.4-8.2) 4.5 g/dL (6.4-8.2) Albumin 0.9 g/dL (3.4-5.0) 1.1 g/dL (3.4-5.0) Albumin/Globulin Ratio 0.3 (1.0-1.7) 0.3 (1.0-1.7) Prothrombin Time 13.9 SEC (11.7-14.0) Prothromb Time International Ratio 1.1 (0.8-1.1) Activated Partial Thromboplast Time > 150 SEC (24-38) Images Images PATIENT: ANKIT CORDOVA ACCOUNT: [id number] : 1935 LOCATION: ER AGE: 86 SEX: M EXAM STATUS: PRE ER ORD. PHYSICIAN: TOMAS ROA APRN REASON: afib PROCEDURE: PORTABLE CHEST 1V EXAM: Chest, single view. HISTORY: Atrial fibrillation. COMPARISON: 12/10/2020 FINDINGS: A frontal view of the chest is obtained. There are small bilateral pleural effusions. There is bilateral lower lobe atelectasis or interstitial infiltrate. The heart is normal in size. There is no pneumothorax. There is a right internal jugular catheter with the tip in the right atrium. There is a left upper extremity arterial stent. IMPRESSION: 1. Small pleural effusions with bilateral lower lobe atelectasis or interstitial infiltrate. 2. Right internal jugular catheter with the tip overlying expected location of the right atrium. Electronically signed by: Lauren Adams MD (09/23/2021 11:42 AM) [id number] Assessment/Plan Assessment/Plan IMP ESRD-MWF S/P L ARM AV ACCESS REVISION AND RIGHT IJ TDC PLACEMENT ANEMIA AFIB RVR HYPOTENSION HYPOKALEMIA LEUCOCYTOSIS HX CAD PLAN BOO CHECK IRON HD TODAY UF TO TW SUGGEST EMPIRIC ANTIBIOTICS K REPLACED PRBC GIVEN CARDIOLOGY EVALUATION WILL FOLLOW ENRRIQUE BENNETT MD September 24, 2021 11:06
[2021-09-24] MEDS ORDERED: PIP/TAZO PER PHARMACY MC PRN (11:15)
[2021-09-24] MEDS ORDERED: EPOETIN ALFA 20,000 UNIT/ML VIAL for DIALYSIS PTS. SQ ONE ×2 (12:00→21:00)
[2021-09-24] MEDS: MIDODRINE 5 MG TABLET PO SCH ×3 (13:00→18:33)
[2021-09-24] MEDS: FLUDROCORTISONE 0.1 MG TABLET PO SCH (13:26)
[2021-09-24] MEDS: LEVOTHYROXINE 88 MCG TABLET PO SCH (13:27)
[2021-09-24] MEDS: FOLIC/VIT B COMP W-C (RENAL) TABLET. PO SCH (13:27)
[2021-09-24] MEDS: SENNOSIDES/DOCUSATE 8.6/50MG TABLET. PO SCH ×2 (13:27→20:45)
[2021-09-24] MEDS: RANOLAZINE 500 MG TAB.ER.12H PO SCH ×2 (14:23→20:45)
[2021-09-24] MEDS: PIPERACILLIN/TAZOBACTAM 2.25 GM in IV NORMAL SALINE 50ML 50 ML IV SCH ×2 (14:24→20:46)
--- NOTE | 2021-09-24 14:47 | NUR ---
Pt not given morning dose of midodrine as pt was off floor for dialysis.
--- NOTE | 2021-09-24 14:51 | NUR ---
updated on POC. She is states she is coming to hospital now to visit with pt
[2021-09-24 15:00] VITALS: BP 127/90
[2021-09-24 19:56] VITALS: BP 137/45
[2021-09-24] MEDS: ATORVASTATIN CALCIUM 40 MG TABLET. PO SCH (20:45)
[2021-09-24 22:34] VITALS: BP 110/45
[2021-09-25 02:39] VITALS: BP 166/56
[2021-09-25 05:11] LABS: HEMATOCRIT 22.8 % (39.0-53.0); HEMOGLOBIN 7.4 g/dL (13.0-17.5); RED BLOOD COUNT 2.14 x10^6/uL (4.30-5.70); RED CELL DISTRIBUTION WIDTH 18.8 % (11.5-14.5); WHITE BLOOD COUNT 11.6 x10^3/uL (4.0-11.0)
[2021-09-25 05:41] LABS: CALCIUM 7.6 mg/dL (8.5-10.1); CREATININE 2.8 mg/dL (0.7-1.3); GFR 21.5
[2021-09-25] MEDS: PIPERACILLIN/TAZOBACTAM 2.25 GM in IV NORMAL SALINE 50ML 50 ML IV SCH ×3 (05:43→21:04)
[2021-09-25] MEDS: LEVOTHYROXINE 88 MCG TABLET PO SCH (05:43)
[2021-09-25 05:49] LABS: POTASSIUM 2.9 mmol/L (3.5-5.1)
--- NOTE | 2021-09-25 06:15 | NUR ---
Dr. Loredo returned page re: critical K+ 2.9. Ordered 40 PO KCL with breakfast and lunch.
[2021-09-25 06:35] VITALS: BP 144/59
[2021-09-25] MEDS ORDERED: POTASSIUM CHLORIDE 20 MEQ TABLET.ER. PO ONE ×2 (08:00→12:00)
[2021-09-25] MEDS: MIDODRINE 5 MG TABLET PO SCH ×3 (08:25→18:23)
[2021-09-25] MEDS: FOLIC/VIT B COMP W-C (RENAL) TABLET. PO SCH (08:25)
[2021-09-25] MEDS: FLUDROCORTISONE 0.1 MG TABLET PO SCH (08:25)
[2021-09-25] MEDS: RANOLAZINE 500 MG TAB.ER.12H PO SCH (08:25)
[2021-09-25] MEDS: SENNOSIDES/DOCUSATE 8.6/50MG TABLET. PO SCH ×2 (08:25→21:03)
--- NOTE | 2021-09-25 10:14 | PDOC ---
[employer] PROGRESS NOTE Date of Service DOS: DATE: 09/25/21 TIME: 09:46 Chief Complaint Chief Complaint Acute anemia Hypokalemia Bilateral pleural effusions CAD status post stent x4 - stable.Follows [facility] Hypothyroidism - on replacement HTN - Given age over 80 may be more liberal blood pressure parameters should be pursued 150/90 as threshold for tx and as needed midodrine on dialysis days ESRD on HD since December 2020 - dialysis per nephrology Hypokalemia - monitor, replace per nephrology Severe protein calorie malnutrition - likely related to ESRD status, nutrition FEN - Renal dialysis PPX - SCDs FULL CODE Dispo - inpatient History of Present Illness History of Present Illness is an 86-year-old male with PMHx CAD status post stent x4, hypothyroidism, HTN, ESRD on HD since December 2020 who presents to the ED from dialysis confused and in AFIB RVR which was noted while having dialysis as well as hypotension. He is s/p left upper extremity AV graft thrombectomy and angioplasty on 09/22/21. EKG in ED begins irregular and then appears sinus rhythm within 6 seconds. WBC 15.6, Hb 6.7 with MCV 109, platelets 327, PTT greater than 150, INR 1.1, NA 138, K2.8, BUN 34, CR 3.9, glucose 160, albumin 0.9, high-sensitivity troponin was 235. Head CT with no acute abnormalities chest radiograph bilateral pleural effusions. 09/24: Tolerated dialysis today. A little less confused. Blood pressure low and still tachycardic being closely monitored on telemetry. Transfuse for Hb of 6.7 improved to 8.6. Still with large leukocytosis. 09/25: Hb 7.4, K2.9. Still with positive orthostatic systolic blood pressure in the 100s despite midodrine and Florinef. We will repeat a.m. cortisol replace potassium discussed with nephrology potential potassium bath adjustment outp atient as he has had frequent hospitalizations. Vitals/I&O Vitals/I&O: Vital Signs Date Time Temp Pulse Resp B/P (MAP) Pulse Ox O2 Delivery O2 Flow Rate FiO2 09/25/21 08:25 107 144/59 09/25/21 06:35 97.9 18 99 Room Air 97.9 I & O 09/24/21 09/24/21 09/25/21 15:00 23:00 07:00 Intake Total 280 ml 410 ml 75 ml Balance 280 ml 410 ml 75 ml Physical Exam General: Alert, Cooperative, No acute distress Heart: Other (IRREGULAR AFIB) Lungs: Clear Abdomen: Normal bowel sounds Extremities: No clubbing Skin: No breakdown Labs Labs: Laboratory Tests Test 09/25/21 04:30 White Blood Count 11.6 x10^3/uL (4.0-11.0) Red Blood Count 2.14 x10^6/uL (4.30-5.70) Hemoglobin 7.4 g/dL (13.0-17.5) Hematocrit 22.8 % (39.0-53.0) Mean Corpuscular Volume 107 fL (79-100) Mean Corpuscular Hemoglobin 35 pg (25-35) Mean Corpuscular Hemoglobin Concent 33 g/dL (31-37) Red Cell Distribution Width 18.8 % (11.5-14.5) Platelet Count 238 x10^3/uL (140-400) Sodium Level 143 mmol/L (136-145) Potassium Level 2.9 mmol/L (3.5-5.1) Chloride Level 106 mmol/L (98-107) Carbon Dioxide Level 29 mmol/L (21-32) Anion Gap 8 (6-14) Blood Urea Nitrogen 20 mg/dL (8-26) Creatinine 2.8 mg/dL (0.7-1.3) Estimated GFR (Cockcroft-Gault) 21.5 Glucose Level 76 mg/dL (70-99) Calcium Level 7.6 mg/dL (8.5-10.1) Iron Level 26 ug/dL (65-175) Total Iron Binding Capacity 114 ug/dL (250-450) Iron Saturation 23 % (15-34) Assessment and Plan Assessmemt and Plan Problems Medical Problems: (1) Hypokalemia Status: Acute (2) Hypotension Status: Acute (3) Low hemoglobin Status: Acute Comment Review of Relevant I have reviewed the following items madonna (where applicable) has been applied. Medications: Current Medications Medications (Trade) Dose Ordered Sig/Krzysztof Route PRN Reason Start Time Stop Time Status Last Admin Dose Admin Fludrocortisone Acetate (Florinef) 0.2 mg DAILY PO 09/24/21 10:00 09/25/21 08:25 Vitamin B Complex/ Vitamin C (Ruth-Russ) 1 tab DAILY PO 09/24/21 10:00 09/25/21 08:25 Levothyroxine Sodium (Synthroid) 88 mcg DAILY06 PO 09/24/21 11:30 09/25/21 05:43 Midodrine (Proamatine) 5 mg TID@0900,1300,1700 PO 09/24/21 10:00 09/25/21 08:25 Ranolazine (Ranexa) 500 mg BID PO 09/24/21 10:00 09/25/21 08:25 Senna/Docusate Sodium (Senna Plus) 2 tab BID PO 09/24/21 10:00 09/25/21 08:25 Atorvastatin Calcium (Lipitor) 80 mg HS PO 09/24/21 21:00 09/24/21 20:45 Albumin Human 200 ml @ 200 mls/hr 1X PRN PRN IV Hypotension 09/24/21 10:15 09/24/21 16:14 DC 09/24/21 10:30 Piperacillin Sod/ Tazobactam Sod 2.25 gm/Sodium Chloride 50 ml @ 100 mls/hr Q8HRS IV 09/24/21 14:00 09/25/21 05:43 Epoetin Vladimir (PROCRIT for DIALYSIS PTS) 20,000 unit 1X ONCE SQ 09/24/21 21:00 09/24/21 21:01 DC 09/24/21 20:46 Potassium Chloride (Klor-Con) 40 meq 1X ONCE PO 09/25/21 08:00 09/25/21 08:01 DC 09/25/21 07:47 Justifications for Admission Other Justification ROSALIO SPRINGER MD September 25, 2021 10:14
[2021-09-25 11:00] VITALS: BP 102/54
--- NOTE | 2021-09-25 11:56 | PDOC ---
Renal-Progress Notes Subjective Notes Notes NO NEW COMPLAINTS History of Present Illness Hx of present illness STABLE Vitals Vitals Vital Signs Date Time Temp Pulse Resp B/P (MAP) Pulse Ox O2 Delivery O2 Flow Rate FiO2 09/25/21 11:00 98.1 95 18 102/54 (70) 99 Room Air 98.1 Weight Weight [ ] I.O. Intake and Output Intake and Output 09/25/21 07:00 Intake Total 765 ml Balance 765 ml Intake Oral 565 ml IV Total 200 ml # Voids 4 # Bowel Movements 3 Labs Labs Laboratory Tests Test 09/25/21 04:30 White Blood Count 11.6 x10^3/uL (4.0-11.0) Red Blood Count 2.14 x10^6/uL (4.30-5.70) Hemoglobin 7.4 g/dL (13.0-17.5) Hematocrit 22.8 % (39.0-53.0) Mean Corpuscular Volume 107 fL (79-100) Mean Corpuscular Hemoglobin 35 pg (25-35) Mean Corpuscular Hemoglobin Concent 33 g/dL (31-37) Red Cell Distribution Width 18.8 % (11.5-14.5) Platelet Count 238 x10^3/uL (140-400) Sodium Level 143 mmol/L (136-145) Potassium Level 2.9 mmol/L (3.5-5.1) Chloride Level 106 mmol/L (98-107) Carbon Dioxide Level 29 mmol/L (21-32) Anion Gap 8 (6-14) Blood Urea Nitrogen 20 mg/dL (8-26) Creatinine 2.8 mg/dL (0.7-1.3) Estimated GFR (Cockcroft-Gault) 21.5 Glucose Level 76 mg/dL (70-99) Calcium Level 7.6 mg/dL (8.5-10.1) Iron Level 26 ug/dL (65-175) Total Iron Binding Capacity 114 ug/dL (250-450) Iron Saturation 23 % (15-34) Review of Systems Constitutional: yes: alert, oriented Ears/Nose/Throat: Yes: no symptom reported Eyes: Yes: no symptom reported Pulmonary: Yes no symptom reported Cardiovascular: Yes no symptom reported Gastrointestional: Yes: no symptom reported Genitourinary: Yes: no symptom reported Musculoskeletal: Yes: no symptom reported Skin: Yes no symptom reported Psychiatric/Neurological: Yes: no symptom reported Physical Exam General Appearance: no apparent distress Skin: warm Respiratory: bilateral CTA Heart: S1S2 Abdomen: soft, bowel sounds present Genitourinary: bladder flat Extremities: pulses present, atrophy Neurology: alert Musculoskeletal: Osteoarthritis Assessment Assessment IMP ESRD-MWF S/P L ARM AV ACCESS REVISION AND RIGHT IJ TDC PLACEMENT ANEMIA AFIB RVR HYPOTENSION HYPOKALEMIA LEUCOCYTOSIS HX CAD PLAN BOO REPLACE K HD MWF SUGGEST EMPIRIC ANTIBIOTICS CARDIOLOGY EVALUATION WILL FOLLOW ENRRIQUE BENNETT MD September 25, 2021 11:56
[2021-09-25] MEDS ORDERED: IRON SUCROSE COMPLEX 200 MG in IV NORMAL SALINE 100ML 100 ML IV ONE (13:00)
--- NOTE | 2021-09-25 13:16 | PDOC ---
CARDIOLOGY PROGRESS NOTE SUBJECTIVE: No acute events overnight. Still has some orthostasis. Sleeping currently. OBJECTIVE: Vital Signs/I&O: Vital Signs Date Time Temp Pulse Resp B/P (MAP) Pulse Ox O2 Delivery O2 Flow Rate FiO2 09/25/21 11:00 98.1 95 18 102/54 (70) 99 Room Air 98.1 I & O 09/24/21 09/24/21 09/25/21 15:00 23:00 07:00 Intake Total 280 ml 410 ml 75 ml Balance 280 ml 410 ml 75 ml Objective: No changes to exam. General: pt laying comfortably in bed, no acute distress, Heart: RRR no m/r/c, pulses symmetric throughout extremities Lungs: CTAB, no wheezing, rhonchi, rales Neruo: no focal deficits noted, moves all extremities Extremities: generalized 1+ edema is both upper and lower distal extremities, left UE bandaged from port revision CURRENT MEDICATIONS: Current Medications Medications (Trade) Dose Ordered Sig/Krzysztof Route PRN Reason Start Time Stop Time Status Last Admin Dose Admin Atorvastatin Calcium (Lipitor) 80 mg HS PO 09/24/21 21:00 09/24/21 20:45 Piperacillin Sod/ Tazobactam Sod 2.25 gm/Sodium Chloride 50 ml @ 100 mls/hr Q8HRS IV 09/24/21 14:00 09/25/21 05:43 Epoetin Vladimir (PROCRIT for DIALYSIS PTS) 20,000 unit 1X ONCE SQ 09/24/21 21:00 09/24/21 21:01 DC 09/24/21 20:46 Potassium Chloride (Klor-Con) 40 meq 1X ONCE PO 09/25/21 08:00 09/25/21 08:01 DC 09/25/21 07:47 DIAGNOSTIC TESTING: Labs reviewed. Labs: Laboratory Tests 09/25/21 04:30 Laboratory Tests Test 09/25/21 04:30 White Blood Count 11.6 x10^3/uL (4.0-11.0) H Red Blood Count 2.14 x10^6/uL (4.30-5.70) L Hemoglobin 7.4 g/dL (13.0-17.5) L Hematocrit 22.8 % (39.0-53.0) L Mean Corpuscular Volume 107 fL (79-100) H Mean Corpuscular Hemoglobin 35 pg (25-35) Mean Corpuscular Hemoglobin Concent 33 g/dL (31-37) Red Cell Distribution Width 18.8 % (11.5-14.5) H Platelet Count 238 x10^3/uL (140-400) Sodium Level 143 mmol/L (136-145) Potassium Level 2.9 mmol/L (3.5-5.1) *L Chloride Level 106 mmol/L (98-107) Carbon Dioxide Level 29 mmol/L (21-32) Anion Gap 8 (6-14) Blood Urea Nitrogen 20 mg/dL (8-26) Creatinine 2.8 mg/dL (0.7-1.3) H Estimated GFR (Cockcroft-Gault) 21.5 Glucose Level 76 mg/dL (70-99) Calcium Level 7.6 mg/dL (8.5-10.1) L Iron Level 26 ug/dL (65-175) L Total Iron Binding Capacity 114 ug/dL (250-450) L Iron Saturation 23 % (15-34) ASSESSMENT: 1. AFIB RVR: new finding in the setting of hypokalemia and anemia. Nostrips available to review from dialysis center. Presently back in SR with no prior hx of AFIB 2. Hypokalemia 3. Macrocytic anemia: 4. Hx of syncope related to orthostasis 5. CAD: past stents. clinically stable 6. HTN: controlled. reported hypotension during HD possibly due to RVR 7. ESRD 8. Presyncope 9. Anasarca-POA 10. Mild troponin elevation: no CP. Suspect demand mediated with RVR and anemia. Recent TTE with nml EF and WM PLAN: 1. Stop Ranexa today. 2. We will reassess symptoms tomorrow. 3. Continue HD as tolerated. 4. Consider outpt ischemic eval. Thanks Justicifation of Admission Dx: Justifications for Admission: Justification of Admission Dx: N/A BENITEZ MINAYA MD September 25, 2021 13:16
[2021-09-25 14:59] VITALS: BP 139/61
[2021-09-25 19:41] VITALS: BP 118/47
[2021-09-25] MEDS: ATORVASTATIN CALCIUM 40 MG TABLET. PO SCH (21:03)
[2021-09-25] MEDS: LACTOBACILLUS RHAMNOSUS GG 1 CAPSULE. PO SCH (21:03)
[2021-09-25 23:03] VITALS: BP 132/66
[2021-09-26 02:46] VITALS: BP 119/52
[2021-09-26] MEDS: LEVOTHYROXINE 88 MCG TABLET PO SCH (05:48)
[2021-09-26] MEDS: PIPERACILLIN/TAZOBACTAM 2.25 GM in IV NORMAL SALINE 50ML 50 ML IV SCH ×3 (05:49→21:05)
[2021-09-26 07:00] VITALS: BP 124/55
[2021-09-26] MEDS ORDERED: DIALYSIS PATIENT. MC PRN ×2 (07:30)
[2021-09-26] MEDS ORDERED: IV NORMAL SALINE 1000ML BAG 1,000 ML IV PRN ×2 (07:30)
[2021-09-26 07:35] LABS: HEMATOCRIT 26.8 % (39.0-53.0); RED BLOOD COUNT 2.53 x10^6/uL (4.30-5.70); RED CELL DISTRIBUTION WIDTH 19.1 % (11.5-14.5)
--- NOTE | 2021-09-26 07:55 | PDOC ---
[employer] PROGRESS NOTE Date of Service DOS: DATE: 09/26/21 TIME: 07:54 Chief Complaint Chief Complaint Acute anemia Hypokalemia Bilateral pleural effusions CAD status post stent x4 - stable.Follows [facility] Hypothyroidism - on replacement HTN - Given age over 80 may be more liberal blood pressure parameters should be pursued 150/90 as threshold for tx and as needed midodrine on dialysis days ESRD on HD since December 2020 - dialysis per nephrology Hypokalemia - monitor, replace per nephrology Severe protein calorie malnutrition - likely related to ESRD status, nutrition Neck pain -concern for discitis FEN - Renal dialysis PPX - SCDs FULL CODE Dispo - inpatient History of Present Illness History of Present Illness is an 86-year-old male with PMHx CAD status post stent x4, hypothyroidism, HTN, ESRD on HD since December 2020 who presents to the ED from dialysis confused and in AFIB RVR which was noted while having dialysis as well as hypotension. He is s/p left upper extremity AV graft thrombectomy and angioplasty on 09/22/21. EKG in ED begins irregular and then appears sinus rhythm within 6 seconds. WBC 15.6, Hb 6.7 with MCV 109, platelets 327, PTT greater than 150, INR 1.1, NA 138, K2.8, BUN 34, CR 3.9, glucose 160, albumin 0.9, high-sensitivity troponin was 235. Head CT with no acute abnormalities chest radiograph bilateral pleural effusions. 09/24: Tolerated dialysis today. A little less confused. Blood pressure low and still tachycardic being closely monitored on telemetry. Transfuse for Hb of 6.7 improved to 8.6. Still with large leukocytosis. 09/25: Hb 7.4, K2.9. Still with positive orthostatic systolic blood pressure in the 100s despite midodrine and Florinef. We will repeat a.m. cortisol replace potassium discussed with nephrology potassium adjustment. 09/26: WBC 13 today still has little bit of a cough now with some neck pain on extension and worse focal pain Nasif 5 6 and T1 interdisc spaces posteriorly. Will obtain CT cervical spine and thoracic spine and consult ID for persistent leukocytosis. Unfortunately patient was admitted on antibiotics without any cultures. Vitals/I&O Vitals/I&O: Vital Signs Date Time Temp Pulse Resp B/P (MAP) Pulse Ox O2 Delivery O2 Flow Rate FiO2 09/26/21 02:46 98.1 101 18 119/52 (74) 99 Room Air 98.1 I & O 09/25/21 09/25/21 09/26/21 15:00 23:00 07:00 Intake Total 360 ml 390 ml 50 ml Output Total 300 ml Balance 360 ml 390 ml -250 ml Physical Exam General: Alert, Cooperative, No acute distress Heart: Other (IRREGULAR AFIB) Lungs: Clear Abdomen: Normal bowel sounds Extremities: No clubbing Skin: No breakdown Labs Labs: Laboratory Tests Test 09/26/21 06:45 White Blood Count 13.0 x10^3/uL (4.0-11.0) Red Blood Count 2.53 x10^6/uL (4.30-5.70) Hemoglobin 9.0 g/dL (13.0-17.5) Hematocrit 26.8 % (39.0-53.0) Mean Corpuscular Volume 106 fL (79-100) Mean Corpuscular Hemoglobin 36 pg (25-35) Mean Corpuscular Hemoglobin Concent 34 g/dL (31-37) Red Cell Distribution Width 19.1 % (11.5-14.5) Platelet Count 268 x10^3/uL (140-400) Assessment and Plan Assessmemt and Plan Problems Medical Problems: (1) Hypokalemia Status: Acute (2) Hypotension Status: Acute (3) Low hemoglobin Status: Acute Comment Review of Relevant I have reviewed the following items madonna (where applicable) has been applied. Medications: Current Medications Medications (Trade) Dose Ordered Sig/Krzysztof Route PRN Reason Start Time Stop Time Status Last Admin Dose Admin Potassium Chloride (Klor-Con) 40 meq 1X ONCE PO 09/25/21 08:00 09/25/21 08:01 DC 09/25/21 07:47 Potassium Chloride (Klor-Con) 40 meq 1X ONCE PO 09/25/21 12:00 09/25/21 12:01 DC 09/25/21 13:37 Iron Sucrose 200 mg/Sodium Chloride 110 ml @ 55 mls/hr 1X ONCE IV 09/25/21 13:00 09/25/21 14:59 DC 09/25/21 13:38 Lactobacillus Rhamnosus (Culturelle) 1 cap BID PO 09/25/21 21:00 09/25/21 21:03 Justifications for Admission Other Justification ROSALIO SPRINGER MD September 26, 2021 07:55
[2021-09-26 07:58] LABS: ALBUMIN 1.3 g/dL (3.4-5.0); CALCIUM 7.7 mg/dL (8.5-10.1); CREATININE 3.6 mg/dL (0.7-1.3); GFR 16.1; PHOSPHORUS 2.9 mg/dL (2.6-4.7); POTASSIUM 3.6 mmol/L (3.5-5.1)
--- NOTE | 2021-09-26 10:50 | PDOC ---
NARGIS KEY SPA RECEPTIONIST 09/26/21 1050: CARDIO Progress Notes Date and Time Date of Service 09/26/21 Time of Evaluation 1040 Subjective Subjective: No Chest Pain, No shortness of breath, No Palpitations, No Dizziness Vitals Vitals Vital Signs Date Time Temp Pulse Resp B/P (MAP) Pulse Ox O2 Delivery O2 Flow Rate FiO2 09/26/21 07:57 Room Air 09/26/21 07:00 97.5 100 18 124/55 (78) 97 97.5 Weight Weight [ ] Input and Output Intake and Output Intake and Output 09/26/21 07:00 Intake Total 800 ml Output Total 300 ml Balance 500 ml Intake Oral 540 ml IV Total 260 ml Output Urine Total 300 ml # Bowel Movements 2 Laboratory Labs Laboratory Tests Test 09/26/21 06:45 White Blood Count 13.0 x10^3/uL (4.0-11.0) Red Blood Count 2.53 x10^6/uL (4.30-5.70) Hemoglobin 9.0 g/dL (13.0-17.5) Hematocrit 26.8 % (39.0-53.0) Mean Corpuscular Volume 106 fL (79-100) Mean Corpuscular Hemoglobin 36 pg (25-35) Mean Corpuscular Hemoglobin Concent 34 g/dL (31-37) Red Cell Distribution Width 19.1 % (11.5-14.5) Platelet Count 268 x10^3/uL (140-400) Sodium Level 142 mmol/L (136-145) Potassium Level 3.6 mmol/L (3.5-5.1) Chloride Level 105 mmol/L (98-107) Carbon Dioxide Level 25 mmol/L (21-32) Anion Gap 12 (6-14) Blood Urea Nitrogen 25 mg/dL (8-26) Creatinine 3.6 mg/dL (0.7-1.3) Estimated GFR (Cockcroft-Gault) 16.1 Glucose Level 81 mg/dL (70-99) Calcium Level 7.7 mg/dL (8.5-10.1) Phosphorus Level 2.9 mg/dL (2.6-4.7) Albumin 1.3 g/dL (3.4-5.0) Cortisol AM Sample 26.8 ug/dL (4.3-22.4) Review of Systems Constitutional: yes: alert, oriented Ears/Nose/Throat: Yes: no symptom reported Eyes: Yes: no symptom reported Pulmonary: Yes no symptom reported Cardiovascular: Yes no symptom reported Gastrointestional: Yes: no symptom reported Genitourinary: Yes: no symptom reported Musculoskeletal: Yes: no symptom reported Skin: Yes no symptom reported Psychiatric/Neurological: Yes: no symptom reported Physical Exam HEENT: Neck Supple W Full Motion Chest: Symmetric LUNGS: Clear to Auscultation Heart: RRR Abdomen: Soft N/T Extremities: Other (trace pedal edema ) Neurology: alert, oriented, follow commands Assessment Assessment 1. AFIB RVR: new finding in the setting of hypokalemia and anemia. Nostrips available to review from dialysis center. Back in SR and has been maintaining. No prior h/o AFIB 2. Hypokalemia; replaced 3. Macrocytic anemia: s/p transfusion 4. Hx of syncope related to orthostatic hypotension. Renexa discontinued. on Midodrine 5. CAD: past stents. clinically stable 6. HTN: controlled. reported hypotension during HD possibly due to RVR 7. ESRD 8. Presyncope 9. Anasarca; improved 10. Mild troponin elevation: no CP. Suspect demand mediated with RVR and anemia. Recent TTE with nml EF and WM Recommendations Continue Midodrine Recheck orthos Fluid management via HD Consider outpt ischemic eval. Supportive care Justicifation of Admission Dx: Justifications for Admission: Justification of Admission Dx: N/A SUNNI RAMOS MD 09/26/21 0391: CARDIO Progress Notes Assessment Assessment Patient seen and examined He is feeling mildly better today. I agree with our nurse practitioners assessment and plan. AFIB RVR: new finding in the setting of hypokalemia and anemia. No strips available to review from dialysis center. Has been in sinus rhythm overnight. We will continue present medical treatment and monitor. Patient has no reported history of atrial fibrillation. Hypokalemia; replaced Macrocytic anemia: s/p transfusion Hx of syncope related to orthostatic hypotension. Renexa discontinued. on Midodrine CAD: past stents. clinically stable HTN: controlled. reported hypotension during HD possibly due to RVR ESRD Presyncope Anasarca; improved Mild troponin elevation: no CP. Suspect demand mediated with RVR and anemia. Recent TTE with nml EF and WM YESI,NARGIS SPA RECEPTIONIST September 26, 2021 10:50 SUNNI RAMOS MD September 26, 2021 17:51
--- NOTE | 2021-09-26 10:58 | PDOC ---
Renal-Progress Notes Subjective Notes Notes FEELS WELL History of Present Illness Hx of present illness STABLE, NO NEW COMPLAINTS Vitals Vitals Vital Signs Date Time Temp Pulse Resp B/P (MAP) Pulse Ox O2 Delivery O2 Flow Rate FiO2 09/26/21 07:57 Room Air 09/26/21 07:00 97.5 100 18 124/55 (78) 97 97.5 Weight Weight [ ] I.O. Intake and Output Intake and Output 09/26/21 07:00 Intake Total 800 ml Output Total 300 ml Balance 500 ml Intake Oral 540 ml IV Total 260 ml Output Urine Total 300 ml # Bowel Movements 2 Labs Labs Laboratory Tests Test 09/26/21 06:45 White Blood Count 13.0 x10^3/uL (4.0-11.0) Red Blood Count 2.53 x10^6/uL (4.30-5.70) Hemoglobin 9.0 g/dL (13.0-17.5) Hematocrit 26.8 % (39.0-53.0) Mean Corpuscular Volume 106 fL (79-100) Mean Corpuscular Hemoglobin 36 pg (25-35) Mean Corpuscular Hemoglobin Concent 34 g/dL (31-37) Red Cell Distribution Width 19.1 % (11.5-14.5) Platelet Count 268 x10^3/uL (140-400) Sodium Level 142 mmol/L (136-145) Potassium Level 3.6 mmol/L (3.5-5.1) Chloride Level 105 mmol/L (98-107) Carbon Dioxide Level 25 mmol/L (21-32) Anion Gap 12 (6-14) Blood Urea Nitrogen 25 mg/dL (8-26) Creatinine 3.6 mg/dL (0.7-1.3) Estimated GFR (Cockcroft-Gault) 16.1 Glucose Level 81 mg/dL (70-99) Calcium Level 7.7 mg/dL (8.5-10.1) Phosphorus Level 2.9 mg/dL (2.6-4.7) Albumin 1.3 g/dL (3.4-5.0) Cortisol AM Sample 26.8 ug/dL (4.3-22.4) Review of Systems Constitutional: yes: alert, oriented Ears/Nose/Throat: Yes: no symptom reported Eyes: Yes: no symptom reported Pulmonary: Yes no symptom reported Cardiovascular: Yes no symptom reported Gastrointestional: Yes: no symptom reported Genitourinary: Yes: no symptom reported Musculoskeletal: Yes: no symptom reported Skin: Yes no symptom reported Psychiatric/Neurological: Yes: no symptom reported Physical Exam General Appearance: no apparent distress Skin: warm Respiratory: bilateral CTA Heart: S1S2 Abdomen: soft, bowel sounds present Genitourinary: bladder flat Extremities: pulses present, atrophy Neurology: alert Musculoskeletal: Osteoarthritis Assessment Assessment IMP ESRD-MWF S/P L ARM AV ACCESS REVISION AND RIGHT IJ TDC PLACEMENT ANEMIA AFIB RVR HYPOTENSION-RESOLVED HYPOKALEMIA-CORRECTED LEUCOCYTOSIS HX CAD PLAN BOO HD TODAY UF TO TW CARDIOLOGY EVALUATION WILL FOLLOW ENRRIQUE BENNETT MD September 26, 2021 10:58
[2021-09-26] MEDS: LACTOBACILLUS RHAMNOSUS GG 1 CAPSULE. PO SCH ×2 (12:36→21:05)
[2021-09-26] MEDS: SENNOSIDES/DOCUSATE 8.6/50MG TABLET. PO SCH ×2 (12:36→21:05)
[2021-09-26] MEDS: FOLIC/VIT B COMP W-C (RENAL) TABLET. PO SCH (12:36)
[2021-09-26] MEDS: MIDODRINE 5 MG TABLET PO SCH ×3 (12:37→17:24)
[2021-09-26] MEDS: FLUDROCORTISONE 0.1 MG TABLET PO SCH (12:37)
[2021-09-26 15:00] VITALS: BP 145/48
--- NOTE | 2021-09-26 15:19 | NUR ---
SS following for discharge planning. SS reviewed pt chart and discussed with pt RN. Pt is resident from the [facility] at the [facility]. Contact is WADE Mcduffie RN, ext. [phone]; fax [phone]. Pt is currently on room air. Pt on IV Zosyn. Pt has outpatient hemodialysis at [facility], ; fax [phone], Sunday, Sunday, and Sunday. Pt is currently on room air. Clinical updates phoned and faxed to Sakina Fink at the [facility]. PT/OT orders requested. SS will continue to follow for discharge planning.
--- NOTE | 2021-09-26 16:37 | PDOC ---
PULMONARY PROGRESS NOTES DATE: 09/26/21 TIME: 16:36 Vitals Vital Signs Date Time Temp Pulse Resp B/P (MAP) Pulse Ox O2 Delivery O2 Flow Rate FiO2 09/26/21 15:00 96.0 103 18 145/48 (80) 96 Room Air 96.0 Lungs: Clear Labs Laboratory Tests Test 09/25/21 04:30 09/26/21 06:45 White Blood Count 11.6 x10^3/uL (4.0-11.0) 13.0 x10^3/uL (4.0-11.0) Red Blood Count 2.14 x10^6/uL (4.30-5.70) 2.53 x10^6/uL (4.30-5.70) Hemoglobin 7.4 g/dL (13.0-17.5) 9.0 g/dL (13.0-17.5) Hematocrit 22.8 % (39.0-53.0) 26.8 % (39.0-53.0) Mean Corpuscular Volume 107 fL (79-100) 106 fL (79-100) Mean Corpuscular Hemoglobin 35 pg (25-35) 36 pg (25-35) Mean Corpuscular Hemoglobin Concent 33 g/dL (31-37) 34 g/dL (31-37) Red Cell Distribution Width 18.8 % (11.5-14.5) 19.1 % (11.5-14.5) Platelet Count 238 x10^3/uL (140-400) 268 x10^3/uL (140-400) Sodium Level 143 mmol/L (136-145) 142 mmol/L (136-145) Potassium Level 2.9 mmol/L (3.5-5.1) 3.6 mmol/L (3.5-5.1) Chloride Level 106 mmol/L (98-107) 105 mmol/L (98-107) Carbon Dioxide Level 29 mmol/L (21-32) 25 mmol/L (21-32) Anion Gap 8 (6-14) 12 (6-14) Blood Urea Nitrogen 20 mg/dL (8-26) 25 mg/dL (8-26) Creatinine 2.8 mg/dL (0.7-1.3) 3.6 mg/dL (0.7-1.3) Estimated GFR (Cockcroft-Gault) 21.5 16.1 Glucose Level 76 mg/dL (70-99) 81 mg/dL (70-99) Calcium Level 7.6 mg/dL (8.5-10.1) 7.7 mg/dL (8.5-10.1) Iron Level 26 ug/dL (65-175) Total Iron Binding Capacity 114 ug/dL (250-450) Iron Saturation 23 % (15-34) Phosphorus Level 2.9 mg/dL (2.6-4.7) Magnesium Level 2.1 mg/dL (1.8-2.4) Albumin 1.3 g/dL (3.4-5.0) Cortisol AM Sample 26.8 ug/dL (4.3-22.4) Laboratory Tests Test 09/26/21 06:45 White Blood Count 13.0 x10^3/uL (4.0-11.0) Red Blood Count 2.53 x10^6/uL (4.30-5.70) Hemoglobin 9.0 g/dL (13.0-17.5) Hematocrit 26.8 % (39.0-53.0) Mean Corpuscular Volume 106 fL (79-100) Mean Corpuscular Hemoglobin 36 pg (25-35) Mean Corpuscular Hemoglobin Concent 34 g/dL (31-37) Red Cell Distribution Width 19.1 % (11.5-14.5) Platelet Count 268 x10^3/uL (140-400) Sodium Level 142 mmol/L (136-145) Potassium Level 3.6 mmol/L (3.5-5.1) Chloride Level 105 mmol/L (98-107) Carbon Dioxide Level 25 mmol/L (21-32) Anion Gap 12 (6-14) Blood Urea Nitrogen 25 mg/dL (8-26) Creatinine 3.6 mg/dL (0.7-1.3) Estimated GFR (Cockcroft-Gault) 16.1 Glucose Level 81 mg/dL (70-99) Calcium Level 7.7 mg/dL (8.5-10.1) Phosphorus Level 2.9 mg/dL (2.6-4.7) Magnesium Level 2.1 mg/dL (1.8-2.4) Albumin 1.3 g/dL (3.4-5.0) Cortisol AM Sample 26.8 ug/dL (4.3-22.4) Medications Active Scripts Medications Dose Route/Sig Max Daily Dose Days Date Category Dose Instructions Acetaminophen 325 Mg Tablet 650 Mg PO PRN Q6HRS PRN 09/22/21 Reported Polyethylene Glycol 3350 17 Gm Powd.pack 17 Gm PO PRN DAILY PRN 09/22/21 Reported Arthritis Pain (Diclofenac Sodium) 100 Gm Gel..gram. 2 Gm TP PRN QID PRN 09/22/21 Reported Fludrocortisone Acetate 0.1 Mg Tablet 0.2 Mg PO DAILY 09/22/21 Reported Midodrine Hcl 5 Mg Tablet 5 Mg PO TID 09/22/21 Reported Tramadol Hcl 50 Mg Tablet 25 Mg PO PRN Q12HR PRN 09/22/21 Reported Senna-Docusate Sodium Tablet (Sennosides/Docusate Sodium) 1 Each Tablet 2 Tab PO BID 20 09/22/21 Reported Renal Vitamin Tablet (Folic Acid/Vit Bcomp,C) 0.8 Mg Tablet 0.8 Mg PO DAILY 04/25/21 Reported Vitamin D3 (Cholecalciferol (Vitamin D3)) 125 Mcg Tablet 1,250 Mcg PO QFR 04/25/21 Reported Take at 0700 Zetia (Ezetimibe) 10 Mg Tablet 10 Mg PO DAILY 01/20/19 Reported Synthroid (Levothyroxine Sodium) 75 Mcg Tablet 88 Mcg PO DAILYAC 01/20/19 Reported Ranexa (Ranolazine) 500 Mg Tab.er.12h 500 Mg PO BID 01/20/19 Reported Crestor (Rosuvastatin Calcium) 40 Mg Tablet 40 Mg PO HS 01/20/19 Reported Impression . Full consult to be dictated Chest x-ray reviewed Continue current Zosyn, repeat chest x-ray MARQUIS ARIZMENDI MD September 26, 2021 16:37
[2021-09-26 19:00] VITALS: BP 102/41
[2021-09-26] MEDS: ATORVASTATIN CALCIUM 40 MG TABLET. PO SCH (21:05)
[2021-09-27] MEDS: LEVOTHYROXINE 88 MCG TABLET PO SCH (05:37)
[2021-09-27] MEDS: PIPERACILLIN/TAZOBACTAM 2.25 GM in IV NORMAL SALINE 50ML 50 ML IV SCH ×3 (05:38→21:49)
[2021-09-27 07:00] VITALS: BP 105/46
--- NOTE | 2021-09-27 07:48 | RAD ---
AP chest x-ray HISTORY: Pulmonary infiltrate. COMPARISON: Chest x-ray September 23, 2021 FINDINGS: Right jugular dual-lumen dialysis catheter tip right atrium. Heart size normal aorta calcif ied plaque. No pneumothorax. Mild right pleural effusion has increased, mild left pleural effusion is stable. Perihilar and lower lobe pulmonary opacities have developed likely pulmonary edema. Bones un remarkable. IMPRESSION: Right jugular dialysis catheter. No pneumothorax. Increased volume of mild right pleural effusion. Mild left pleural effusion stable. Development of perihilar and lower lobe pulmonary opacit ies likely edema. Electronically signed by: Ousmane Farris MD (09/26/2021 6:06 PM) [facility]
[2021-09-27] MEDS: FOLIC/VIT B COMP W-C (RENAL) TABLET. PO SCH (09:08)
[2021-09-27] MEDS: LACTOBACILLUS RHAMNOSUS GG 1 CAPSULE. PO SCH ×2 (09:08→21:17)
[2021-09-27] MEDS: SENNOSIDES/DOCUSATE 8.6/50MG TABLET. PO SCH ×2 (09:08→21:17)
[2021-09-27] MEDS: FLUDROCORTISONE 0.1 MG TABLET PO SCH (09:08)
[2021-09-27] MEDS: MIDODRINE 5 MG TABLET PO SCH ×3 (09:09→16:41)
--- NOTE | 2021-09-27 09:09 | PDOC ---
PULMONARY PROGRESS NOTES DATE: 09/27/21 TIME: 09:09 Vitals Vital Signs Date Time Temp Pulse Resp B/P (MAP) Pulse Ox O2 Delivery O2 Flow Rate FiO2 09/27/21 07:00 98.1 100 16 105/46 (65) 93 Room Air 98.1 Lungs: Clear Labs Laboratory Tests Test 09/26/21 06:45 White Blood Count 13.0 x10^3/uL (4.0-11.0) Red Blood Count 2.53 x10^6/uL (4.30-5.70) Hemoglobin 9.0 g/dL (13.0-17.5) Hematocrit 26.8 % (39.0-53.0) Mean Corpuscular Volume 106 fL (79-100) Mean Corpuscular Hemoglobin 36 pg (25-35) Mean Corpuscular Hemoglobin Concent 34 g/dL (31-37) Red Cell Distribution Width 19.1 % (11.5-14.5) Platelet Count 268 x10^3/uL (140-400) Sodium Level 142 mmol/L (136-145) Potassium Level 3.6 mmol/L (3.5-5.1) Chloride Level 105 mmol/L (98-107) Carbon Dioxide Level 25 mmol/L (21-32) Anion Gap 12 (6-14) Blood Urea Nitrogen 25 mg/dL (8-26) Creatinine 3.6 mg/dL (0.7-1.3) Estimated GFR (Cockcroft-Gault) 16.1 Glucose Level 81 mg/dL (70-99) Calcium Level 7.7 mg/dL (8.5-10.1) Phosphorus Level 2.9 mg/dL (2.6-4.7) Magnesium Level 2.1 mg/dL (1.8-2.4) Albumin 1.3 g/dL (3.4-5.0) Cortisol AM Sample 26.8 ug/dL (4.3-22.4) Medications Active Scripts Medications Dose Route/Sig Max Daily Dose Days Date Category Dose Instructions Acetaminophen 325 Mg Tablet 650 Mg PO PRN Q6HRS PRN 09/22/21 Reported Polyethylene Glycol 3350 17 Gm Powd.pack 17 Gm PO PRN DAILY PRN 09/22/21 Reported Arthritis Pain (Diclofenac Sodium) 100 Gm Gel..gram. 2 Gm TP PRN QID PRN 09/22/21 Reported Fludrocortisone Acetate 0.1 Mg Tablet 0.2 Mg PO DAILY 09/22/21 Reported Midodrine Hcl 5 Mg Tablet 5 Mg PO TID 09/22/21 Reported Tramadol Hcl 50 Mg Tablet 25 Mg PO PRN Q12HR PRN 09/22/21 Reported Senna-Docusate Sodium Tablet (Sennosides/Docusate Sodium) 1 Each Tablet 2 Tab PO BID 20 09/22/21 Reported Renal Vitamin Tablet (Folic Acid/Vit Bcomp,C) 0.8 Mg Tablet 0.8 Mg PO DAILY 04/25/21 Reported Vitamin D3 (Cholecalciferol (Vitamin D3)) 125 Mcg Tablet 1,250 Mcg PO QFR 04/25/21 Reported Take at 0700 Zetia (Ezetimibe) 10 Mg Tablet 10 Mg PO DAILY 01/20/19 Reported Synthroid (Levothyroxine Sodium) 75 Mcg Tablet 88 Mcg PO DAILYAC 01/20/19 Reported Ranexa (Ranolazine) 500 Mg Tab.er.12h 500 Mg PO BID 01/20/19 Reported Crestor (Rosuvastatin Calcium) 40 Mg Tablet 40 Mg PO HS 01/20/19 Reported Impression . Full consult dictated Chest x-ray reviewed Increased pleural effusion Discussed with Dr. Escobar Possible thoracentesis Discussed with Continue current empiric antibiotics for possible pneumonia MARQUIS ARIZMENDI MD September 27, 2021 09:09
--- NOTE | 2021-09-27 09:29 | PDOC ---
CARDIO Progress Notes Date and Time Date of Service 09/27/21 Time of Evaluation 0930 Subjective Subjective: No Chest Pain, No shortness of breath, No Palpitations, No Dizziness Vitals Vitals Vital Signs Date Time Temp Pulse Resp B/P (MAP) Pulse Ox O2 Delivery O2 Flow Rate FiO2 09/27/21 09:09 100 105/46 09/27/21 07:00 98.1 16 93 Room Air 98.1 Weight Weight [ ] Input and Output Intake and Output Intake and Output 09/27/21 07:00 Intake Total 500 ml Balance 500 ml Intake Oral 450 ml IV Total 50 ml Review of Systems Constitutional: yes: alert, oriented Ears/Nose/Throat: Yes: no symptom reported Eyes: Yes: no symptom reported Pulmonary: Yes no symptom reported Cardiovascular: Yes no symptom reported Gastrointestional: Yes: no symptom reported Genitourinary: Yes: no symptom reported Musculoskeletal: Yes: no symptom reported Skin: Yes no symptom reported Psychiatric/Neurological: Yes: no symptom reported Physical Exam HEENT: Neck Supple W Full Motion Chest: Symmetric LUNGS: Clear to Auscultation Heart: RRR Abdomen: Soft N/T Extremities: Other (anasarca) Neurology: alert, oriented, follow commands Assessment Assessment 1. AFIB RVR: new finding in the setting of hypokalemia and anemia. Nostrips available to review from dialysis center. Back in SR and has been maintaining. No prior h/o AFIB 2. Hypokalemia; replaced 3. Macrocytic anemia: s/p transfusion. hgb stable 4. Hx of syncope related to orthostatic hypotension. Renexa discontinued. on Midodrine and Florinef 5. CAD: past stents. clinically stable 6. HTN: controlled. reported hypotension during HD possibly due to RVR 7. ESRD 8. Presyncope 9. Protein calorie malnutrition, anasarca 10. Mild troponin elevation: no CP. Suspect demand mediated with RVR and anemia. Recent TTE with nml EF and WM 11. Dyspnea secondary to pleural effusion. Possible thoracentesis Recommendations Continue Midodrine, Florinef Recheck orthos Fluid management via HD Consider outpt ischemic eval. Supportive care Justicifation of Admission Dx: Justifications for Admission: Justification of Admission Dx: N/A NARGIS KEY APRN September 27, 2021 09:29
--- NOTE | 2021-09-27 10:14 | PDOC ---
[facility] PROGRESS NOTE Date of Service DOS: DATE: 09/27/21 TIME: 10:13 Chief Complaint Chief Complaint Acute anemia Hypokalemia Bilateral pleural effusions CAD status post stent x4 - stable.Follows [facility] Hypothyroidism - on replacement HTN - Given age over 80 may be more liberal blood pressure parameters should be pursued 150/90 as threshold for tx and as needed midodrine on dialysis days ESRD on HD since December 2020 - dialysis per nephrology Hypokalemia - monitor, replace per nephrology Severe protein calorie malnutrition - likely related to ESRD status, nutrition Neck pain -concern for discitis FEN - Renal dialysis PPX - SCDs FULL CODE Dispo - inpatient History of Present Illness History of Present Illness is an 86-year-old male with PMHx CAD status post stent x4, hypothyroidism, HTN, ESRD on HD since December 2020 who presents to the ED from dialysis confused and in AFIB RVR which was noted while having dialysis as well as hypotension. He is s/p left upper extremity AV graft thrombectomy and angioplasty on 09/22/21. EKG in ED begins irregular and then appears sinus rhythm within 6 seconds. WBC 15.6, Hb 6.7 with MCV 109, platelets 327, PTT greater than 150, INR 1.1, NA 138, K2.8, BUN 34, CR 3.9, glucose 160, albumin 0.9, high-sensitivity troponin was 235. Head CT with no acute abnormalities chest radiograph bilateral pleural effusions. 09/24: Tolerated dialysis today. A little less confused. Blood pressure low and still tachycardic being closely monitored on telemetry. Transfuse for Hb of 6.7 improved to 8.6. Still with large leukocytosis. 09/25: Hb 7.4, K2.9. Still with positive orthostatic systolic blood pressure in the 100s despite midodrine and Florinef. We will repeat a.m. cortisol replace potassium discussed with nephrology potassium adjustment. 09/26: WBC 13 today still has little bit of a cough now with some neck pain on extension and worse focal pain Nasif 5 6 and T1 interdisc spaces posteriorly. Will obtain CT cervical spine and thoracic spine and consult ID for persistent leukocytosis. Unfortunately patient was admitted on antibiotics without any cultures. 09/27: Chest radiograph looks worse per discussion with pulmonology. CT neck and chest and thorax for today with IV contrast per facility policy can only be administered on dialysis days. He still is having neck pain Vitals/I&O Vitals/I&O: Vital Signs Date Time Temp Pulse Resp B/P (MAP) Pulse Ox O2 Delivery O2 Flow Rate FiO2 09/27/21 09:09 100 105/46 09/27/21 07:00 98.1 16 93 Room Air 98.1 I & O 09/26/21 09/26/21 09/27/21 15:00 23:00 07:00 Intake Total 300 ml 200 ml Balance 300 ml 200 ml Physical Exam General: Alert, Cooperative, No acute distress Heart: Other (IRREGULAR AFIB) Lungs: Clear Abdomen: Normal bowel sounds Extremities: No clubbing Skin: No breakdown Assessment and Plan Assessmemt and Plan Problems Medical Problems: (1) Hypokalemia Status: Acute (2) Hypotension Status: Acute (3) Low hemoglobin Status: Acute Comment Review of Relevant I have reviewed the following items madonna (where applicable) has been applied. Justifications for Admission Other Justification ROSALIO SPRINGER MD September 27, 2021 10:14
[2021-09-27 11:00] VITALS: BP 110/44
--- NOTE | 2021-09-27 11:14 | PDOC ---
Renal-Progress Notes Subjective Notes Notes NO NEW COMPLAINTS History of Present Illness Hx of present illness STABLE Vitals Vitals Vital Signs Date Time Temp Pulse Resp B/P (MAP) Pulse Ox O2 Delivery O2 Flow Rate FiO2 09/27/21 09:09 100 105/46 09/27/21 08:00 Room Air 09/27/21 07:00 98.1 16 93 98.1 Weight Weight [ ] I.O. Intake and Output Intake and Output 09/27/21 07:00 Intake Total 500 ml Balance 500 ml Intake Oral 450 ml IV Total 50 ml Review of Systems Constitutional: yes: alert, oriented Ears/Nose/Throat: Yes: no symptom reported Eyes: Yes: no symptom reported Pulmonary: Yes no symptom reported Cardiovascular: Yes no symptom reported Gastrointestional: Yes: no symptom reported Genitourinary: Yes: no symptom reported Musculoskeletal: Yes: no symptom reported Skin: Yes no symptom reported Psychiatric/Neurological: Yes: no symptom reported Physical Exam General Appearance: no apparent distress Skin: warm Respiratory: bilateral CTA Heart: S1S2 Abdomen: soft, bowel sounds present Genitourinary: bladder flat Extremities: pulses present, atrophy Neurology: alert, oriented, follow commands Musculoskeletal: Osteoarthritis Assessment Assessment IMP [id number] IJ TDC S/P L ARM AV ACCESS REVISION AND RIGHT IJ TDC PLACEMENT ANEMIA AFIB RVR HYPOTENSION-RESOLVED HYPOKALEMIA-CORRECTED LEUCOCYTOSIS HX CAD PLAN BOO HD TOMORROW UTILIZE TDC FOR IV ACCESS AND BLOOD DRAW FOR NOW LEFT ARM AV ACCESS NOT READY FOR CANNULATION YET CARDIOLOGY EVALUATION WILL FOLLOW ENRRIQUE BENNETT MD September 27, 2021 11:14
[2021-09-27 11:33] LABS: BASO % 0 % (0-3); EOS # 0.1 x10^3/uL (0.0-0.7); EOS % 1 % (0-3); HEMATOCRIT 27.2 % (39.0-53.0); HEMOGLOBIN 8.9 g/dL (13.0-17.5); LYMPH # 1.3 x10^3/uL (1.0-4.8); LYMPH % 12 % (24-48); MEAN CORPUSCULAR HEMOGLOBIN 35 pg (25-35); MEAN CORPUSCULAR HGB CONC 33 g/dL (31-37); MEAN CORPUSCULAR VOLUME 108 fL (79-100); MONO # 0.9 x10^3/uL (0.0-1.1); MONO % 8 % (0-9); NEUT # 9.1 x10^3/uL (1.8-7.7); NEUT % 80 % (31-73); PLATELET COUNT 252 x10^3/uL (140-400); RED BLOOD COUNT 2.52 x10^6/uL (4.30-5.70); RED CELL DISTRIBUTION WIDTH 19.8 % (11.5-14.5); WHITE BLOOD COUNT 11.4 x10^3/uL (4.0-11.0)
[2021-09-27 11:50] LABS: CALCIUM 7.8 mg/dL (8.5-10.1); CREATININE 2.8 mg/dL (0.7-1.3); GFR 21.5; POTASSIUM 3.8 mmol/L (3.5-5.1)
[2021-09-27 14:40] VITALS: BP 105/49
--- NOTE | 2021-09-27 15:20 | NUR ---
SS following up with discharge planning. SS reviewed pt chart and discussed with pt RN. Pt is resident from the [facility] at the [facility]. Contact is WADE Mcduffie RN, ext. [phone]; fax [phone]. Pt is currently on room air. Pt on IV Zosyn. Pt has outpatient hemodialysis at [facility], ; fax [phone], Sunday, Sunday, and Sunday. Pt is currently on room air. PT/OT recommended [facility] unit. COVID19 PCR test pending for placement. Clinical updates phoned and faxed to Sakina Fink at the [place]. SS will continue to follow for discharge planning.
[2021-09-27] MEDS ORDERED: IOHEXOL 300 MG/ML 100ML VIAL. IV ONE (16:00)
[2021-09-27] MEDS ORDERED: CONTRAST GIVEN. MC PRN (16:15)
--- NOTE | 2021-09-27 17:18 | RAD ---
CT THORACIC SPINE RECONSTRUCT, CT CERVICAL SPINE WITH IV CONTRAST, CT CHEST+ABD+PELVIS W History: C5-C6 pain, concern for discitis. Short of air, leukocytosis. T1 pain, concern for discitis. Comparison: CT chest, cervical and thoracic spine 08/09/2021 Technique: CT of the chest, abdomen and pelvis with intravenous contrast. CT of the cervical spine wi th contrast. Dedicated CT reformats of the thoracic spine. Findings: Chest, abdomen and pelvis- Right internal jugular central venous catheter tip terminates at the cavoatrial junction. No large or central pulmonary embolism. Moderate calcification of the aortic arch, no aneurysm. Heavy coronary a rtery calcification. The heart size is normal. Trace pericardial fluid. The thyroid and esophagus are unremarkable. No enlarged mediastinal adenopathy. There are large bilateral pleural effusions, increased from comparison. Bilateral lower lobe dependen t consolidations likely compressive atelectasis. Mild dependent consolidations of the upper lobes als o likely compressive atelectasis. Mild emphysematous change. The central airways are patent. Subcentimeter hypodensity in the liver too small to characterize, likely benign cyst. There is dystro phic calcification along the hepatic dome, under the diaphragm. Distended gallbladder. Ill-defined 1. 7 cm hypodensity adjacent to the common bile duct, second portion of the duodenum and pancreatic duct (Axial 37). Fatty atrophy of the pancreas. Spleen and adrenal glands are unremarkable. Bilateral adele al atrophy. Stomach is decompressed. No small bowel obstruction. Mild wall thickening in the transverse and proxi mal descending colon. No significant diverticulosis. Small perihepatic and pelvic ascites. The bladder is unremarkable. Coarse calcifications of the prost ate. Heavy atherosclerosis of the aorta with prominent mural atheroma. No aneurysm. Diffuse body wall anasarca. Decreased osseous mineralization. No acute abnormality in the ribs, shoul ders and pelvis. Cervical spine- Multilevel degenerative changes with reversal of the normal cervical lordosis apex at C6-C7. Severe d isc height loss C6-C7 with uncovertebral hypertrophy. Mild dependent cervical facet hypertrophic dege nerative changes. No destructive endplate changes to suggest discitis osteomyelitis. Degenerative dis c disease, osteophytes and ossification of the posterior longitudinal ligament narrow the spinal linh l to approximately 6 mm at C5-C6 and C6-C7 and cause severe right, moderate left neural foraminal annie nosis at these levels. Bilateral carotid bulb calcifications. The vascular structures are patent. No suspicious mass or german opathy in the neck. Thoracic spine- There is mild superior endplate compression deformities of the T4 and T5 vertebral bodies which are n ew from July 2021 comparison. Multilevel degenerative endplate changes. The intervertebral disc spac es are relatively well-preserved. There is no fracture or dislocation. There is no aggressive erosive change to suggest discitis osteomyelitis. Impression: 1. Mild superior endplate compression deformities at T4 and T5 vertebral bodies new from July 2021 comparison likely represent compression fractures. No evidence of aggressive osseous erosive process to suggest discitis osteomyelitis in the cervical or thoracic spine. 2. Multilevel degenerative changes in the cervical spine with spinal canal stenosis to approximately 6 mm at C5-C6 and C6-C7 and severe right, moderate left neural foraminal stenosis at these levels. 3. Large bilateral pleural effusions, increased from July 2021. Associated dependent airspace conso lidations likely representing compressive atelectasis. 4. Hydropic gallbladder. Correlate for symptoms of acute cholecystitis. 5. Ill-defined 1.7 cm hypodensity in the region of the second portion of duodenum, common bile duct and pancreatic head, not well appreciated on comparison exam may represent duodenal diverticulum vers us pancreatic lesion or choledochocyst. Recommend MRCP for further evaluation. 6. Nonspecific wall thickening of the transverse and proximal descending colon may be due to mild co litis versus related to fluid status in this patient with effusions, ascites and anasarca. ------ Exposure: One or more of the following individualized dose reduction techniques were utilized for thi s examination: 1. Automated exposure control 2. Adjustment of the mA and/or kV according to patient size 3. Use of iterative reconstruction technique. Electronically signed by: Edgard Allen MD (09/27/2021 5:15 PM) [id number]
[2021-09-27 18:00] VITALS: BP 118/60
--- NOTE | 2021-09-27 19:40 | NUR ---
Pt in bed assessment completed vss poc explained pt reoriented to surroundings and call light pt reminded to call for assistance prior to getting oob will resume care and continue to monitor pt.
[2021-09-27] MEDS: ATORVASTATIN CALCIUM 40 MG TABLET. PO SCH (21:17)
[2021-09-27 23:00] VITALS: BP 106/49
[2021-09-28] VITALS (11 sets, daily range): BP systolic 71–132; BP diastolic 26–57
--- NOTE | 2021-09-28 00:35 | CONS ---
DATE OF CONSULTATION: 09/27/2021 ATTENDING PHYSICIAN: Jean Holguin DO. REASON FOR CONSULTATION: The patient is seen in pulmonary consultation at the request of Dr. Escobar for shortness of air and abnormal chest x-ray. HISTORY OF PRESENT ILLNESS: The patient is an 86-year-old that has a history of coronary artery disease, previous stent placement, hypothyroidism, hypertension, end-stage renal disease, on hemodialysis since 12/2020, presented from the hemodialysis suite with confusion, AFib with rapid ventricular response. He was also hypotensive. He was treated for the above. Chest x-ray was obtained, which revealed bilateral infiltrates and possible effusion. The patient was initially placed on IV Zosyn. I was asked to see him in consultation for further evaluation and management. The patient does experience dyspnea with exertion. He has no fever, chills, no nausea, vomiting, diarrhea. He does have a cough at times slightly productive. PAST MEDICAL HISTORY: Remarkable for coronary artery disease with previous stent placement. He has a history of hypertension, end-stage renal disease on dialysis since 12/2020. Remote history of tobacco use in the 1950s. MEDICATIONS: Medication list was reviewed. ALLERGIES: No known drug allergies. PAST SURGICAL HISTORY: As above. He has had shunt revision. ALLERGIES: No known drug allergies. FAMILY HISTORY: Diabetes. SOCIAL HISTORY: He is currently retired. Has a remote history of tobacco use. REVIEW OF SYSTEMS: As indicated above, otherwise a 10-point system was reviewed and negative. PHYSICAL EXAMINATION: CONSTITUTIONAL: No fever or chills. EYES: No change in visual acuity. HENT: No nasal congestion or sore throat. PULMONARY: As indicated above. CARDIOVASCULAR: No chest pain, no pressure. GASTROINTESTINAL: No nausea, vomiting, diarrhea. GENITOURINARY: No dysuria or frequency. MUSCULOSKELETAL: No localized muscle aches or joint pains. SKIN: No new skin rashes. NEUROLOGIC: No headaches, diplopia or blurred vision. ENDOCRINE: Denies any change heat intolerance, polyuria, or polydipsia. PHYSICAL EXAMINATION: VITAL SIGNS: Stable. O2 saturation was greater than 92%, currently on room air. HEENT: Eyes: The sclerae were nonicteric. NECK: Jugular venous distention was not elevated. No lymphadenopathy. CHEST: Full expansion. LUNGS: Diminished breath sounds in the bases. No wheezes. CARDIOVASCULAR: Regular rate and rhythm with S1, S2, no S3. ABDOMEN: Soft, nontender. EXTREMITIES: No clubbing, cyanosis. Muscle wasting. No significant edema. GENERAL: The patient was awake, alert, following commands. NEUROLOGICAL: A detailed neuro exam was not performed. LABORATORY DATA: White count was initially elevated. Hemoglobin and hematocrit were low. He has been transfused. His hemoglobin enrique to 8.6. Electrolytes were noted. Potassium yesterday was low, today it is normal. Creatinine is 3.6. Albumin is severely low at 1.3. Chest x-ray as indicated above. IMPRESSION: 1. Abnormal x-ray, compatible with pulmonary edema and bilateral pleural effusions. 2. End-stage renal disease, on hemodialysis. 3. Severe protein malnutrition. 4. Leukocytosis. 5. Elevated procalcitonin. 6. Possible pneumonia. 7. Coronary artery disease with previous stent placement. 8. End-stage renal disease on hemodialysis since 12/2020. 9. Acute blood loss anemia. 10. Atrial fibrillation with rapid ventricular response. PLAN: 1. We will obtain a repeat chest x-ray and make further recommendation. 2. Possible thoracentesis. 3. Continue empiric antibiotics for now. 4. The above was discussed with the per telephone. 5. Nutritional support, I think some of his effusions are related to low oncotic pressure edema. 6. Replace potassium. 7. Monitor H and H. 8. Follow Cardiology input regarding AFib and optimize cardiac function. I do appreciate the privilege in sharing in the patient's care. RU DR: Antonietta TID: [id number]
--- NOTE | 2021-09-28 00:37 | CONS ---
DATE OF CONSULTATION: 09/27/2021 REQUESTING PHYSICIAN: Dr. Escobar. REASON FOR CONSULTATION: Leukocytosis and possible diskitis. HISTORY OF PRESENT ILLNESS: This is an 86-year-old gentleman with multiple medical problems who came in on the dialysis. He had a rapid ventricular rate with heart rate into 160s and he had developed atrial fibrillation. The patient since then is here. The patient has a lot of different things going on, leakage from the upper extremity, weakness, neck pain that has been going on for several weeks, white count was up to 15,000 when he came in and just not feeling back to his normal. The patient also has a pleural effusion. The patient is currently on Zosyn and CT scan of the neck and T-spine has been ordered. The patient denies any fever or chills, denies any nausea, vomiting, diarrhea, abdominal pain. There is no appetite, he says. PAST MEDICAL HISTORY: Positive for end-stage renal disease, on hemodialysis; diabetes mellitus; hypertension; hypothyroidism; anemia; has had knee replacement done; arthritis; atrial fibrillation. SOCIAL HISTORY: Positive for smoking, alcohol use, no drug use. ALLERGIES: No known drug allergies. CURRENT MEDICATIONS: Reviewed. The patient is on Zosyn. REVIEW OF SYSTEMS: As in HPI. All other systems reviewed are negative. PHYSICAL EXAMINATION: GENERAL: Alert, oriented gentleman, not in distress. VITAL SIGNS: Stable, afebrile. HEENT: NAD. NECK: Supple, no JVP, no lymphadenopathy. LUNGS: Clear. HEART: S1, S2, regular. ABDOMEN: Soft, nontender, no organomegaly. EXTREMITIES: Does have upper extremity edema. Lower extremity has mild pitting edema. Rest of the skin exam is unremarkable. Hemodialysis catheter is unremarkable. NEUROLOGIC: The patient is alert, awake and appropriate. No focal neurologic deficit. LABORATORY DATA: White count is down to 11.4 from 15,000. BUN and creatinine 16 and 2.8. His albumin is 1.3. Chest x-ray showed right-sided pleural effusion. CT of the head was unremarkable. IMPRESSION: 1. Leukocytosis, which is improving. 2. Pleural effusion. 3. Neck pain. The CT has been ordered. Rule out diskitis. 4. End-stage renal disease, on hemodialysis. 5. Hypertension. 6. Diabetes. 7. Very poor nutrition with albumin 1.3. RECOMMENDATIONS: Continue Zosyn, get CT chest, abdomen and pelvis, supportive care, PT, OT and we will continue to follow. Thank you very much, Dr. Escobar, for giving me opportunity to participate in this patient's care. DAVID/NATALI DR: DAVID/mukesh TID: [id number]
[2021-09-28 05:40] LABS: CALCIUM 7.7 mg/dL (8.5-10.1); CREATININE 3.4 mg/dL (0.7-1.3); GFR 17.2; POTASSIUM 3.4 mmol/L (3.5-5.1)
[2021-09-28 05:53] LABS: BASO % 0 % (0-3); EOS # 0.1 x10^3/uL (0.0-0.7); EOS % 1 % (0-3); HEMATOCRIT 28.9 % (39.0-53.0); LYMPH # 1.2 x10^3/uL (1.0-4.8); LYMPH % 10 % (24-48); MEAN CORPUSCULAR HEMOGLOBIN 35 pg (25-35); MEAN CORPUSCULAR HGB CONC 31 g/dL (31-37); MONO # 0.8 x10^3/uL (0.0-1.1); MONO % 7 % (0-9); NEUT # 10.1 x10^3/uL (1.8-7.7); NEUT % 83 % (31-73); PLATELET COUNT 236 x10^3/uL (140-400); RED BLOOD COUNT 2.55 x10^6/uL (4.30-5.70); RED CELL DISTRIBUTION WIDTH 21.1 % (11.5-14.5); WHITE BLOOD COUNT 12.2 x10^3/uL (4.0-11.0)
[2021-09-28 05:54] LABS: MEAN CORPUSCULAR VOLUME 110 fL (79-100)
[2021-09-28] MEDS: PIPERACILLIN/TAZOBACTAM 2.25 GM in IV NORMAL SALINE 50ML 50 ML IV SCH (06:07)
[2021-09-28] MEDS: LEVOTHYROXINE 88 MCG TABLET PO SCH (06:08)
[2021-09-28] MEDS ORDERED: IV NORMAL SALINE 1000ML BAG 1,000 ML IV PRN ×2 (08:00)
[2021-09-28] MEDS ORDERED: DIALYSIS PATIENT. MC PRN ×2 (08:00)
[2021-09-28] MEDS ORDERED: ALBUMIN HUMAN 25% 200 ML IV PRN (08:00)
[2021-09-28] MEDS: MIDODRINE 5 MG TABLET PO SCH ×3 (09:00→17:14)
[2021-09-28] MEDS: EPOETIN ALFA 20,000 UNIT/ML VIAL for DIALYSIS PTS. SQ SCH (09:00)
[2021-09-28] MEDS: LACTOBACILLUS RHAMNOSUS GG 1 CAPSULE. PO SCH ×2 (09:00→21:36)
[2021-09-28] MEDS: FOLIC/VIT B COMP W-C (RENAL) TABLET. PO SCH (09:00)
[2021-09-28] MEDS: SENNOSIDES/DOCUSATE 8.6/50MG TABLET. PO SCH ×2 (09:00→21:36)
[2021-09-28] MEDS: FLUDROCORTISONE 0.1 MG TABLET PO SCH (09:00)
--- NOTE | 2021-09-28 10:42 | PDOC ---
PEDRO GARCIA SOCCER REFEREE 09/28/21 1042: CARDIO Progress Notes Date and Time Date of Service 09/28/2021 Time of Evaluation 1020 Subjective Subjective: No Chest Pain, No shortness of breath, No Palpitations Vitals Vitals Vital Signs Date Time Temp Pulse Resp B/P (MAP) Pulse Ox O2 Delivery O2 Flow Rate FiO2 09/28/21 08:00 Room Air 09/28/21 06:35 97.9 104 16 132/53 (79) 96 97.9 Weight Weight [ ] Input and Output Intake and Output Intake and Output 09/28/21 07:00 Intake Total 310 ml Output Total 200 ml Balance 110 ml Intake Oral 310 ml Output Urine Total 200 ml # Bowel Movements 1 Laboratory Labs Laboratory Tests Test 09/27/21 11:10 09/27/21 16:41 09/28/21 04:30 White Blood Count 11.4 x10^3/uL (4.0-11.0) 12.2 x10^3/uL (4.0-11.0) Red Blood Count 2.52 x10^6/uL (4.30-5.70) 2.55 x10^6/uL (4.30-5.70) Hemoglobin 8.9 g/dL (13.0-17.5) 9.0 g/dL (13.0-17.5) Hematocrit 27.2 % (39.0-53.0) 28.9 % (39.0-53.0) Mean Corpuscular Volume 108 fL (79-100) 110 fL (79-100) Mean Corpuscular Hemoglobin 35 pg (25-35) 35 pg (25-35) Mean Corpuscular Hemoglobin Concent 33 g/dL (31-37) 31 g/dL (31-37) Red Cell Distribution Width 19.8 % (11.5-14.5) 21.1 % (11.5-14.5) Platelet Count 252 x10^3/uL (140-400) 236 x10^3/uL (140-400) Neutrophils (%) (Auto) 80 % (31-73) 83 % (31-73) Lymphocytes (%) (Auto) 12 % (24-48) 10 % (24-48) Monocytes (%) (Auto) 8 % (0-9) 7 % (0-9) Eosinophils (%) (Auto) 1 % (0-3) 1 % (0-3) Basophils (%) (Auto) 0 % (0-3) 0 % (0-3) Neutrophils # (Auto) 9.1 x10^3/uL (1.8-7.7) 10.1 x10^3/uL (1.8-7.7) Lymphocytes # (Auto) 1.3 x10^3/uL (1.0-4.8) 1.2 x10^3/uL (1.0-4.8) Monocytes # (Auto) 0.9 x10^3/uL (0.0-1.1) 0.8 x10^3/uL (0.0-1.1) Eosinophils # (Auto) 0.1 x10^3/uL (0.0-0.7) 0.1 x10^3/uL (0.0-0.7) Basophils # (Auto) 0.0 x10^3/uL (0.0-0.2) 0.0 x10^3/uL (0.0-0.2) Sodium Level 144 mmol/L (136-145) 145 mmol/L (136-145) Potassium Level 3.8 mmol/L (3.5-5.1) 3.4 mmol/L (3.5-5.1) Chloride Level 105 mmol/L (98-107) 106 mmol/L (98-107) Carbon Dioxide Level 27 mmol/L (21-32) 23 mmol/L (21-32) Anion Gap 12 (6-14) 16 (6-14) Blood Urea Nitrogen 16 mg/dL (8-26) 20 mg/dL (8-26) Creatinine 2.8 mg/dL (0.7-1.3) 3.4 mg/dL (0.7-1.3) Estimated GFR (Cockcroft-Gault) 21.5 17.2 Glucose Level 71 mg/dL (70-99) 50 mg/dL (70-99) Calcium Level 7.8 mg/dL (8.5-10.1) 7.7 mg/dL (8.5-10.1) Erythrocyte Sedimentation Rate 65 (0-15) C-Reactive Protein, Quantitative 23.0 mg/L (0-3.3) Microbiology Micro Microbiology 09/26/21 Blood Culture - Preliminary, Resulted NO GROWTH AFTER 1 DAY Review of Systems Constitutional: yes: alert, oriented Ears/Nose/Throat: Yes: no symptom reported Eyes: Yes: no symptom reported Pulmonary: Yes no symptom reported Cardiovascular: Yes no symptom reported Gastrointestional: Yes: no symptom reported Genitourinary: Yes: no symptom reported Musculoskeletal: Yes: no symptom reported Skin: Yes no symptom reported Psychiatric/Neurological: Yes: no symptom reported Physical Exam HEENT: Neck Supple W Full Motion Chest: Symmetric LUNGS: Other (diminished) Heart: RRR (SR) Abdomen: Soft N/T Extremities: No Calf Tenderness Neurology: alert, oriented, follow commands Assessment Assessment 1. AFIB RVR: new finding in the setting of hypokalemia and anemia. No strips available to review from dialysis center. Maintaining SR/ST. No prior h/o AFIB 2. Hypokalemia; replaced 3. Macrocytic anemia: s/p transfusion. hgb stable 4. Hx of syncope related to orthostatic hypotension. Renexa discontinued. on Midodrine and Florinef 5. CAD: past stents. clinically stable 6. HTN: controlled. reported hypotension during HD possibly due to RVR 7. ESRD 8. Presyncope 9. Protein calorie malnutrition, anasarca 10. Mild troponin elevation: no CP. Suspect demand mediated with RVR and anemia. Recent TTE with nml EF and WM 11. Dyspnea secondary to pleural effusion. thoracentesis pending 12. Protein malnutrition Recommendations Continue Midodrine, Florinef Fluid management via HD Consider outpt ischemic eval. MCOT to ascertain AFIB burden Supportive care Justicifation of Admission Dx: Justifications for Admission: Justification of Admission Dx: N/A SUNNI RAMOS MD 09/28/21 2535: CARDIO Progress Notes Assessment Assessment Patient seen and examined He appears largely unchanged. I agree with our nurse practitioners assessment and plan. AFIB RVR: new finding in the setting of hypokalemia and anemia. No strips available to review from dialysis center. Maintaining SR/ST. No prior h/o AFIB. Continue monitoring. Outpatient monitor. Hypokalemia; replaced Macrocytic anemia: s/p transfusion. hgb stable Hx of syncope related to orthostatic hypotension. Renexa discontinued. on Midodrine and Florinef CAD: past stents. clinically stable HTN: controlled. reported hypotension during HD possibly due to RVR ESRD. As per the renal service. Presyncope Protein calorie malnutrition, anasarca Mild troponin elevation: no CP. Suspect demand mediated with RVR and anemia. Recent TTE with nml EF and WM Dyspnea secondary to pleural effusion. thoracentesis pending PEDRO GARCIA APRN September 28, 2021 10:42 SUNNI RAMOS MD September 28, 2021 18:15
--- NOTE | 2021-09-28 10:47 | PDOC ---
[employer] PROGRESS NOTE Date of Service DOS: DATE: 09/28/21 TIME: 10:34 Chief Complaint Chief Complaint Acute anemia Hypokalemia Bilateral pleural effusions CAD status post stent x4 - stable.Follows [facility] Hypothyroidism - on replacement HTN - Given age over 80 may be more liberal blood pressure parameters should be pursued 150/90 as threshold for tx and as needed midodrine on dialysis days ESRD on HD since December 2020 - dialysis per nephrology Hypokalemia - monitor, replace per nephrology Severe protein calorie malnutrition - likely related to ESRD status, nutrition Neck pain -concern for discitis FEN - Renal dialysis PPX - SCDs FULL CODE Dispo - inpatient History of Present Illness History of Present Illness PerformedMrJersey is an 86-year-old male with PMHx CAD status post stent x4, hypothyroidism, HTN, ESRD on HD since December 2020 who presents to the ED from dialysis confused and in AFIB RVR which was noted while having dialysis as well as hypotension. He is s/p left upper extremity AV graft thrombectomy and angioplasty on 09/22/21. EKG in ED begins irregular and then appears sinus rhythm within 6 seconds. WBC 15.6, Hb 6.7 with MCV 109, platelets 327, PTT greater than 150, INR 1.1, NA 138, K2.8, BUN 34, CR 3.9, glucose 160, albumin 0.9, high-sensitivity troponin was 235. Head CT with no acute abnormalities chest radiograph bilateral pleural effusions. 09/24: Tolerated dialysis today. A little less confused. Blood pressure low and still tachycardic being closely monitored on telemetry. Transfuse for Hb of 6.7 improved to 8.6. Still with large leukocytosis. 09/25: Hb 7.4, K2.9. Still with positive orthostatic systolic blood pressure in the 100s despite midodrine and Florinef. We will repeat a.m. cortisol replace potassium discussed with nephrology potassium adjustment. 09/26: WBC 13 today still has little bit of a cough now with some neck pain on extension and worse focal pain Nasif 5 6 and T1 interdisc spaces posteriorly. Will obtain CT cervical spine and thoracic spine and consult ID for persistent leukocytosis. Unfortunately patient was admitted on antibiotics without any cultures. 09/27: Chest radiograph looks worse per discussion with pulmonology. CT neck and chest and thorax for today with IV contrast per facility policy can only be administered on dialysis days. He still is having neck pain 09/28: Afebrile. CT cervical spine and thoracic spine showing compression fracture in T4, T5; no evidence of discitis in cervical or thoracic spine large bilateral pleural effusions have increased. Discussed with Dr. Zambrano, will perform thoracentesis tomorrow. Patient has worked with PT and recommended SNU. Continue midodrine and Florinef; outpatient ischemic evaluation. Continue HD, per nephrology. Vitals/I&O Vitals/I&O: Vital Signs Date Time Temp Pulse Resp B/P (MAP) Pulse Ox O2 Delivery O2 Flow Rate FiO2 09/28/21 08:00 Room Air 09/28/21 06:35 97.9 104 16 132/53 (79) 96 97.9 I & O 09/27/21 09/27/21 09/28/21 15:00 23:00 07:00 Intake Total 0 ml 310 ml Output Total 200 ml Balance 0 ml -200 ml 310 ml Physical Exam General: Alert, Cooperative, No acute distress Heart: Other (IRREGULAR AFIB) Lungs: Clear Abdomen: Normal bowel sounds Extremities: No clubbing Skin: No breakdown Labs Labs: Laboratory Tests Test 09/27/21 11:10 09/27/21 16:41 09/28/21 04:30 White Blood Count 11.4 x10^3/uL (4.0-11.0) 12.2 x10^3/uL (4.0-11.0) Red Blood Count 2.52 x10^6/uL (4.30-5.70) 2.55 x10^6/uL (4.30-5.70) Hemoglobin 8.9 g/dL (13.0-17.5) 9.0 g/dL (13.0-17.5) Hematocrit 27.2 % (39.0-53.0) 28.9 % (39.0-53.0) Mean Corpuscular Volume 108 fL (79-100) 110 fL (79-100) Mean Corpuscular Hemoglobin 35 pg (25-35) 35 pg (25-35) Mean Corpuscular Hemoglobin Concent 33 g/dL (31-37) 31 g/dL (31-37) Red Cell Distribution Width 19.8 % (11.5-14.5) 21.1 % (11.5-14.5) Platelet Count 252 x10^3/uL (140-400) 236 x10^3/uL (140-400) Neutrophils (%) (Auto) 80 % (31-73) 83 % (31-73) Lymphocytes (%) (Auto) 12 % (24-48) 10 % (24-48) Monocytes (%) (Auto) 8 % (0-9) 7 % (0-9) Eosinophils (%) (Auto) 1 % (0-3) 1 % (0-3) Basophils (%) (Auto) 0 % (0-3) 0 % (0-3) Neutrophils # (Auto) 9.1 x10^3/uL (1.8-7.7) 10.1 x10^3/uL (1.8-7.7) Lymphocytes # (Auto) 1.3 x10^3/uL (1.0-4.8) 1.2 x10^3/uL (1.0-4.8) Monocytes # (Auto) 0.9 x10^3/uL (0.0-1.1) 0.8 x10^3/uL (0.0-1.1) Eosinophils # (Auto) 0.1 x10^3/uL (0.0-0.7) 0.1 x10^3/uL (0.0-0.7) Basophils # (Auto) 0.0 x10^3/uL (0.0-0.2) 0.0 x10^3/uL (0.0-0.2) Sodium Level 144 mmol/L (136-145) 145 mmol/L (136-145) Potassium Level 3.8 mmol/L (3.5-5.1) 3.4 mmol/L (3.5-5.1) Chloride Level 105 mmol/L (98-107) 106 mmol/L (98-107) Carbon Dioxide Level 27 mmol/L (21-32) 23 mmol/L (21-32) Anion Gap 12 (6-14) 16 (6-14) Blood Urea Nitrogen 16 mg/dL (8-26) 20 mg/dL (8-26) Creatinine 2.8 mg/dL (0.7-1.3) 3.4 mg/dL (0.7-1.3) Estimated GFR (Cockcroft-Gault) 21.5 17.2 Glucose Level 71 mg/dL (70-99) 50 mg/dL (70-99) Calcium Level 7.8 mg/dL (8.5-10.1) 7.7 mg/dL (8.5-10.1) Erythrocyte Sedimentation Rate 65 (0-15) C-Reactive Protein, Quantitative 23.0 mg/L (0-3.3) Assessment and Plan Assessmemt and Plan Problems Medical Problems: (1) Hypokalemia Status: Acute (2) Hypotension Status: Acute (3) Low hemoglobin Status: Acute Comment Review of Relevant I have reviewed the following items madonna (where applicable) has been applied. Medications: Current Medications Medications (Trade) Dose Ordered Sig/Krzysztof Route PRN Reason Start Time Stop Time Status Last Admin Dose Admin Iohexol (Omnipaque 300 Mg/ml) 75 ml 1X ONCE IV 09/27/21 16:00 09/27/21 16:01 DC 09/27/21 16:24 Justifications for Admission Other Justification KARIME GAUTAM MD September 28, 2021 10:47
--- NOTE | 2021-09-28 11:19 | PDOC ---
PULMONARY PROGRESS NOTES DATE: 09/28/21 TIME: 11:19 Vitals Vital Signs Date Time Temp Pulse Resp B/P (MAP) Pulse Ox O2 Delivery O2 Flow Rate FiO2 09/28/21 08:00 Room Air 09/28/21 06:35 97.9 104 16 132/53 (79) 96 97.9 Lungs: Clear Labs Laboratory Tests Test 09/27/21 11:10 09/27/21 16:41 09/28/21 04:30 White Blood Count 11.4 x10^3/uL (4.0-11.0) 12.2 x10^3/uL (4.0-11.0) Red Blood Count 2.52 x10^6/uL (4.30-5.70) 2.55 x10^6/uL (4.30-5.70) Hemoglobin 8.9 g/dL (13.0-17.5) 9.0 g/dL (13.0-17.5) Hematocrit 27.2 % (39.0-53.0) 28.9 % (39.0-53.0) Mean Corpuscular Volume 108 fL (79-100) 110 fL (79-100) Mean Corpuscular Hemoglobin 35 pg (25-35) 35 pg (25-35) Mean Corpuscular Hemoglobin Concent 33 g/dL (31-37) 31 g/dL (31-37) Red Cell Distribution Width 19.8 % (11.5-14.5) 21.1 % (11.5-14.5) Platelet Count 252 x10^3/uL (140-400) 236 x10^3/uL (140-400) Neutrophils (%) (Auto) 80 % (31-73) 83 % (31-73) Lymphocytes (%) (Auto) 12 % (24-48) 10 % (24-48) Monocytes (%) (Auto) 8 % (0-9) 7 % (0-9) Eosinophils (%) (Auto) 1 % (0-3) 1 % (0-3) Basophils (%) (Auto) 0 % (0-3) 0 % (0-3) Neutrophils # (Auto) 9.1 x10^3/uL (1.8-7.7) 10.1 x10^3/uL (1.8-7.7) Lymphocytes # (Auto) 1.3 x10^3/uL (1.0-4.8) 1.2 x10^3/uL (1.0-4.8) Monocytes # (Auto) 0.9 x10^3/uL (0.0-1.1) 0.8 x10^3/uL (0.0-1.1) Eosinophils # (Auto) 0.1 x10^3/uL (0.0-0.7) 0.1 x10^3/uL (0.0-0.7) Basophils # (Auto) 0.0 x10^3/uL (0.0-0.2) 0.0 x10^3/uL (0.0-0.2) Sodium Level 144 mmol/L (136-145) 145 mmol/L (136-145) Potassium Level 3.8 mmol/L (3.5-5.1) 3.4 mmol/L (3.5-5.1) Chloride Level 105 mmol/L (98-107) 106 mmol/L (98-107) Carbon Dioxide Level 27 mmol/L (21-32) 23 mmol/L (21-32) Anion Gap 12 (6-14) 16 (6-14) Blood Urea Nitrogen 16 mg/dL (8-26) 20 mg/dL (8-26) Creatinine 2.8 mg/dL (0.7-1.3) 3.4 mg/dL (0.7-1.3) Estimated GFR (Cockcroft-Gault) 21.5 17.2 Glucose Level 71 mg/dL (70-99) 50 mg/dL (70-99) Calcium Level 7.8 mg/dL (8.5-10.1) 7.7 mg/dL (8.5-10.1) Erythrocyte Sedimentation Rate 65 (0-15) C-Reactive Protein, Quantitative 23.0 mg/L (0-3.3) Laboratory Tests Test 09/27/21 16:41 09/28/21 04:30 Erythrocyte Sedimentation Rate 65 (0-15) C-Reactive Protein, Quantitative 23.0 mg/L (0-3.3) White Blood Count 12.2 x10^3/uL (4.0-11.0) Red Blood Count 2.55 x10^6/uL (4.30-5.70) Hemoglobin 9.0 g/dL (13.0-17.5) Hematocrit 28.9 % (39.0-53.0) Mean Corpuscular Volume 110 fL (79-100) Mean Corpuscular Hemoglobin 35 pg (25-35) Mean Corpuscular Hemoglobin Concent 31 g/dL (31-37) Red Cell Distribution Width 21.1 % (11.5-14.5) Platelet Count 236 x10^3/uL (140-400) Neutrophils (%) (Auto) 83 % (31-73) Lymphocytes (%) (Auto) 10 % (24-48) Monocytes (%) (Auto) 7 % (0-9) Eosinophils (%) (Auto) 1 % (0-3) Basophils (%) (Auto) 0 % (0-3) Neutrophils # (Auto) 10.1 x10^3/uL (1.8-7.7) Lymphocytes # (Auto) 1.2 x10^3/uL (1.0-4.8) Monocytes # (Auto) 0.8 x10^3/uL (0.0-1.1) Eosinophils # (Auto) 0.1 x10^3/uL (0.0-0.7) Basophils # (Auto) 0.0 x10^3/uL (0.0-0.2) Sodium Level 145 mmol/L (136-145) Potassium Level 3.4 mmol/L (3.5-5.1) Chloride Level 106 mmol/L (98-107) Carbon Dioxide Level 23 mmol/L (21-32) Anion Gap 16 (6-14) Blood Urea Nitrogen 20 mg/dL (8-26) Creatinine 3.4 mg/dL (0.7-1.3) Estimated GFR (Cockcroft-Gault) 17.2 Glucose Level 50 mg/dL (70-99) Calcium Level 7.7 mg/dL (8.5-10.1) Medications Active Scripts Medications Dose Route/Sig Max Daily Dose Days Date Category Dose Instructions Acetaminophen 325 Mg Tablet 650 Mg PO PRN Q6HRS PRN 09/22/21 Reported Polyethylene Glycol 3350 17 Gm Powd.pack 17 Gm PO PRN DAILY PRN 09/22/21 Reported Arthritis Pain (Diclofenac Sodium) 100 Gm Gel..gram. 2 Gm TP PRN QID PRN 09/22/21 Reported Fludrocortisone Acetate 0.1 Mg Tablet 0.2 Mg PO DAILY 09/22/21 Reported Midodrine Hcl 5 Mg Tablet 5 Mg PO TID 09/22/21 Reported Tramadol Hcl 50 Mg Tablet 25 Mg PO PRN Q12HR PRN 09/22/21 Reported Senna-Docusate Sodium Tablet (Sennosides/Docusate Sodium) 1 Each Tablet 2 Tab PO BID 20 09/22/21 Reported Renal Vitamin Tablet (Folic Acid/Vit Bcomp,C) 0.8 Mg Tablet 0.8 Mg PO DAILY 04/25/21 Reported Vitamin D3 (Cholecalciferol (Vitamin D3)) 125 Mcg Tablet 1,250 Mcg PO QFR 04/25/21 Reported Take at 0700 Zetia (Ezetimibe) 10 Mg Tablet 10 Mg PO DAILY 01/20/19 Reported Synthroid (Levothyroxine Sodium) 75 Mcg Tablet 88 Mcg PO DAILYAC 01/20/19 Reported Ranexa (Ranolazine) 500 Mg Tab.er.12h 500 Mg PO BID 01/20/19 Reported Crestor (Rosuvastatin Calcium) 40 Mg Tablet 40 Mg PO HS 01/20/19 Reported Impression . Full consult dictated Chest x-ray reviewed Increased pleural effusion Discussed with Dr. Escobar Possible thoracentesis Discussed with Continue current empiric antibiotics for possible pneumonia MARQUIS ARIZMENDI MD September 28, 2021 11:19
--- NOTE | 2021-09-28 11:39 | PDOC ---
Renal-Progress Notes Subjective Notes Notes HAS BACK PAIN History of Present Illness Hx of present illness STABLE Vitals Vitals Vital Signs Date Time Temp Pulse Resp B/P (MAP) Pulse Ox O2 Delivery O2 Flow Rate FiO2 09/28/21 08:00 Room Air 09/28/21 06:35 97.9 104 16 132/53 (79) 96 97.9 Weight Weight [ ] I.O. Intake and Output Intake and Output 09/28/21 07:00 Intake Total 310 ml Output Total 200 ml Balance 110 ml Intake Oral 310 ml Output Urine Total 200 ml # Bowel Movements 1 Labs Labs Laboratory Tests Test 09/27/21 16:41 09/28/21 04:30 Erythrocyte Sedimentation Rate 65 (0-15) C-Reactive Protein, Quantitative 23.0 mg/L (0-3.3) White Blood Count 12.2 x10^3/uL (4.0-11.0) Red Blood Count 2.55 x10^6/uL (4.30-5.70) Hemoglobin 9.0 g/dL (13.0-17.5) Hematocrit 28.9 % (39.0-53.0) Mean Corpuscular Volume 110 fL (79-100) Mean Corpuscular Hemoglobin 35 pg (25-35) Mean Corpuscular Hemoglobin Concent 31 g/dL (31-37) Red Cell Distribution Width 21.1 % (11.5-14.5) Platelet Count 236 x10^3/uL (140-400) Neutrophils (%) (Auto) 83 % (31-73) Lymphocytes (%) (Auto) 10 % (24-48) Monocytes (%) (Auto) 7 % (0-9) Eosinophils (%) (Auto) 1 % (0-3) Basophils (%) (Auto) 0 % (0-3) Neutrophils # (Auto) 10.1 x10^3/uL (1.8-7.7) Lymphocytes # (Auto) 1.2 x10^3/uL (1.0-4.8) Monocytes # (Auto) 0.8 x10^3/uL (0.0-1.1) Eosinophils # (Auto) 0.1 x10^3/uL (0.0-0.7) Basophils # (Auto) 0.0 x10^3/uL (0.0-0.2) Sodium Level 145 mmol/L (136-145) Potassium Level 3.4 mmol/L (3.5-5.1) Chloride Level 106 mmol/L (98-107) Carbon Dioxide Level 23 mmol/L (21-32) Anion Gap 16 (6-14) Blood Urea Nitrogen 20 mg/dL (8-26) Creatinine 3.4 mg/dL (0.7-1.3) Estimated GFR (Cockcroft-Gault) 17.2 Glucose Level 50 mg/dL (70-99) Calcium Level 7.7 mg/dL (8.5-10.1) Micro Micro Microbiology 09/26/21 Blood Culture - Preliminary, Resulted NO GROWTH AFTER 1 DAY Review of Systems Constitutional: yes: alert, oriented Ears/Nose/Throat: Yes: no symptom reported Eyes: Yes: no symptom reported Pulmonary: Yes no symptom reported Cardiovascular: Yes no symptom reported Gastrointestional: Yes: no symptom reported Genitourinary: Yes: no symptom reported Musculoskeletal: Yes: no symptom reported Skin: Yes no symptom reported Psychiatric/Neurological: Yes: no symptom reported Physical Exam General Appearance: no apparent distress Skin: warm Respiratory: bilateral CTA Heart: S1S2 Abdomen: soft, bowel sounds present Genitourinary: bladder flat Extremities: pulses present, atrophy Neurology: alert, oriented, follow commands Musculoskeletal: Osteoarthritis Assessment Assessment IMP [id number] IJ TDC S/P L ARM AV ACCESS REVISION AND RIGHT IJ TDC PLACEMENT ANEMIA AFIB RVR HYPOTENSION-RESOLVED HYPOKALEMIA-CORRECTED LEUCOCYTOSIS HX CAD PLAN BOO HD TODAY UF TO TW ANTIBIOTICS LEFT ARM AV ACCESS NOT READY FOR CANNULATION YET CARDIOLOGY EVALUATION WILL FOLLOW ENRRIQUE BENNETT MD September 28, 2021 11:39
--- NOTE | 2021-09-28 12:11 | PDOC ---
PULMONARY PROGRESS NOTES DATE: 09/28/21 TIME: 12:08 Subjective Patient still short of air with exertion, just came back from dialysis Vitals Vital Signs Date Time Temp Pulse Resp B/P (MAP) Pulse Ox O2 Delivery O2 Flow Rate FiO2 09/28/21 08:00 Room Air 09/28/21 06:35 97.9 104 16 132/53 (79) 96 97.9 ROS: No Nausea, No Chest Pain, No Abdominal Pain, No Increase Cough Lungs: Clear, Other (Diminished breath sounds in the bases) Cardiovascular: S1, S2 Abdomen: Soft Neuro Exam: Alert Skin: Warm Labs Laboratory Tests Test 09/27/21 11:10 09/27/21 16:41 09/28/21 04:30 White Blood Count 11.4 x10^3/uL (4.0-11.0) 12.2 x10^3/uL (4.0-11.0) Red Blood Count 2.52 x10^6/uL (4.30-5.70) 2.55 x10^6/uL (4.30-5.70) Hemoglobin 8.9 g/dL (13.0-17.5) 9.0 g/dL (13.0-17.5) Hematocrit 27.2 % (39.0-53.0) 28.9 % (39.0-53.0) Mean Corpuscular Volume 108 fL (79-100) 110 fL (79-100) Mean Corpuscular Hemoglobin 35 pg (25-35) 35 pg (25-35) Mean Corpuscular Hemoglobin Concent 33 g/dL (31-37) 31 g/dL (31-37) Red Cell Distribution Width 19.8 % (11.5-14.5) 21.1 % (11.5-14.5) Platelet Count 252 x10^3/uL (140-400) 236 x10^3/uL (140-400) Neutrophils (%) (Auto) 80 % (31-73) 83 % (31-73) Lymphocytes (%) (Auto) 12 % (24-48) 10 % (24-48) Monocytes (%) (Auto) 8 % (0-9) 7 % (0-9) Eosinophils (%) (Auto) 1 % (0-3) 1 % (0-3) Basophils (%) (Auto) 0 % (0-3) 0 % (0-3) Neutrophils # (Auto) 9.1 x10^3/uL (1.8-7.7) 10.1 x10^3/uL (1.8-7.7) Lymphocytes # (Auto) 1.3 x10^3/uL (1.0-4.8) 1.2 x10^3/uL (1.0-4.8) Monocytes # (Auto) 0.9 x10^3/uL (0.0-1.1) 0.8 x10^3/uL (0.0-1.1) Eosinophils # (Auto) 0.1 x10^3/uL (0.0-0.7) 0.1 x10^3/uL (0.0-0.7) Basophils # (Auto) 0.0 x10^3/uL (0.0-0.2) 0.0 x10^3/uL (0.0-0.2) Sodium Level 144 mmol/L (136-145) 145 mmol/L (136-145) Potassium Level 3.8 mmol/L (3.5-5.1) 3.4 mmol/L (3.5-5.1) Chloride Level 105 mmol/L (98-107) 106 mmol/L (98-107) Carbon Dioxide Level 27 mmol/L (21-32) 23 mmol/L (21-32) Anion Gap 12 (6-14) 16 (6-14) Blood Urea Nitrogen 16 mg/dL (8-26) 20 mg/dL (8-26) Creatinine 2.8 mg/dL (0.7-1.3) 3.4 mg/dL (0.7-1.3) Estimated GFR (Cockcroft-Gault) 21.5 17.2 Glucose Level 71 mg/dL (70-99) 50 mg/dL (70-99) Calcium Level 7.8 mg/dL (8.5-10.1) 7.7 mg/dL (8.5-10.1) Erythrocyte Sedimentation Rate 65 (0-15) C-Reactive Protein, Quantitative 23.0 mg/L (0-3.3) Laboratory Tests Test 09/27/21 16:41 09/28/21 04:30 Erythrocyte Sedimentation Rate 65 (0-15) C-Reactive Protein, Quantitative 23.0 mg/L (0-3.3) White Blood Count 12.2 x10^3/uL (4.0-11.0) Red Blood Count 2.55 x10^6/uL (4.30-5.70) Hemoglobin 9.0 g/dL (13.0-17.5) Hematocrit 28.9 % (39.0-53.0) Mean Corpuscular Volume 110 fL (79-100) Mean Corpuscular Hemoglobin 35 pg (25-35) Mean Corpuscular Hemoglobin Concent 31 g/dL (31-37) Red Cell Distribution Width 21.1 % (11.5-14.5) Platelet Count 236 x10^3/uL (140-400) Neutrophils (%) (Auto) 83 % (31-73) Lymphocytes (%) (Auto) 10 % (24-48) Monocytes (%) (Auto) 7 % (0-9) Eosinophils (%) (Auto) 1 % (0-3) Basophils (%) (Auto) 0 % (0-3) Neutrophils # (Auto) 10.1 x10^3/uL (1.8-7.7) Lymphocytes # (Auto) 1.2 x10^3/uL (1.0-4.8) Monocytes # (Auto) 0.8 x10^3/uL (0.0-1.1) Eosinophils # (Auto) 0.1 x10^3/uL (0.0-0.7) Basophils # (Auto) 0.0 x10^3/uL (0.0-0.2) Sodium Level 145 mmol/L (136-145) Potassium Level 3.4 mmol/L (3.5-5.1) Chloride Level 106 mmol/L (98-107) Carbon Dioxide Level 23 mmol/L (21-32) Anion Gap 16 (6-14) Blood Urea Nitrogen 20 mg/dL (8-26) Creatinine 3.4 mg/dL (0.7-1.3) Estimated GFR (Cockcroft-Gault) 17.2 Glucose Level 50 mg/dL (70-99) Calcium Level 7.7 mg/dL (8.5-10.1) Medications Active Scripts Medications Dose Route/Sig Max Daily Dose Days Date Category Dose Instructions Acetaminophen 325 Mg Tablet 650 Mg PO PRN Q6HRS PRN 09/22/21 Reported Polyethylene Glycol 3350 17 Gm Powd.pack 17 Gm PO PRN DAILY PRN 09/22/21 Reported Arthritis Pain (Diclofenac Sodium) 100 Gm Gel..gram. 2 Gm TP PRN QID PRN 09/22/21 Reported Fludrocortisone Acetate 0.1 Mg Tablet 0.2 Mg PO DAILY 09/22/21 Reported Midodrine Hcl 5 Mg Tablet 5 Mg PO TID 09/22/21 Reported Tramadol Hcl 50 Mg Tablet 25 Mg PO PRN Q12HR PRN 09/22/21 Reported Senna-Docusate Sodium Tablet (Sennosides/Docusate Sodium) 1 Each Tablet 2 Tab PO BID 20 09/22/21 Reported Renal Vitamin Tablet (Folic Acid/Vit Bcomp,C) 0.8 Mg Tablet 0.8 Mg PO DAILY 04/25/21 Reported Vitamin D3 (Cholecalciferol (Vitamin D3)) 125 Mcg Tablet 1,250 Mcg PO QFR 04/25/21 Reported Take at 0700 Zetia (Ezetimibe) 10 Mg Tablet 10 Mg PO DAILY 01/20/19 Reported Synthroid (Levothyroxine Sodium) 75 Mcg Tablet 88 Mcg PO DAILYAC 01/20/19 Reported Ranexa (Ranolazine) 500 Mg Tab.er.12h 500 Mg PO BID 01/20/19 Reported Crestor (Rosuvastatin Calcium) 40 Mg Tablet 40 Mg PO HS 01/20/19 Reported Impression . IMPRESSION: 1. Abnormal x-ray, compatible with pulmonary edema and bilateral pleural effusions. 2. End-stage renal disease, on hemodialysis. 3. Severe protein malnutrition. 4. Leukocytosis. 5. Elevated procalcitonin. 6. Possible pneumonia. 7. Coronary artery disease with previous stent placement. 8. End-stage renal disease on hemodialysis since 12/2020. 9. Acute blood loss anemia. 10. Atrial fibrillation with rapid ventricular response. Plan . Updated 09/28 CT reviewed Will proceed with thoracentesis Discussed with patient and Discussed with Dr. Wilberto Pedraza 09/27 PLAN: 1. We will obtain a repeat chest x-ray and make further recommendation. 2. Possible thoracentesis. 3. Continue empiric antibiotics for now. 4. The above was discussed with the per telephone. 5. Nutritional support, I think some of his effusions are related to low oncotic pressure edema. 6. Replace potassium. 7. Monitor H and H. 8. Follow Cardiology input regarding AFib and optimize cardiac function. I do appreciate the privilege in sharing in the patient's care. MARQUIS ARIZMENDI MD September 28, 2021 12:11
--- NOTE | 2021-09-28 13:21 | PDOC ---
Infectious Disease Note Subjective Subjective pt is feeling better ROS ROS no n/v/d/sob Vital Sign Vital Signs Vital Signs Date Time Temp Pulse Resp B/P (MAP) Pulse Ox O2 Delivery O2 Flow Rate FiO2 09/28/21 13:10 108 20 73/39 (50) 98 09/28/21 08:00 Room Air 09/28/21 06:35 97.9 97.9 Physical Exam PHYSICAL EXAM GENERAL: Alert, oriented gentleman, not in distress. VITAL SIGNS: Stable, afebrile. HEENT: NAD. NECK: Supple, no JVP, no lymphadenopathy. LUNGS: Clear. HEART: S1, S2, regular. ABDOMEN: Soft, nontender, no organomegaly. EXTREMITIES: Does have upper extremity edema. Lower extremity has mild pitting edema. Rest of the skin exam is unremarkable. Hemodialysis catheter is unremarkable. NEUROLOGIC: The patient is alert, awake and appropriate. No focal neurologic deficit. Labs Lab Laboratory Tests Test 09/27/21 16:41 09/28/21 04:30 Erythrocyte Sedimentation Rate 65 (0-15) C-Reactive Protein, Quantitative 23.0 mg/L (0-3.3) White Blood Count 12.2 x10^3/uL (4.0-11.0) Red Blood Count 2.55 x10^6/uL (4.30-5.70) Hemoglobin 9.0 g/dL (13.0-17.5) Hematocrit 28.9 % (39.0-53.0) Mean Corpuscular Volume 110 fL (79-100) Mean Corpuscular Hemoglobin 35 pg (25-35) Mean Corpuscular Hemoglobin Concent 31 g/dL (31-37) Red Cell Distribution Width 21.1 % (11.5-14.5) Platelet Count 236 x10^3/uL (140-400) Neutrophils (%) (Auto) 83 % (31-73) Lymphocytes (%) (Auto) 10 % (24-48) Monocytes (%) (Auto) 7 % (0-9) Eosinophils (%) (Auto) 1 % (0-3) Basophils (%) (Auto) 0 % (0-3) Neutrophils # (Auto) 10.1 x10^3/uL (1.8-7.7) Lymphocytes # (Auto) 1.2 x10^3/uL (1.0-4.8) Monocytes # (Auto) 0.8 x10^3/uL (0.0-1.1) Eosinophils # (Auto) 0.1 x10^3/uL (0.0-0.7) Basophils # (Auto) 0.0 x10^3/uL (0.0-0.2) Sodium Level 145 mmol/L (136-145) Potassium Level 3.4 mmol/L (3.5-5.1) Chloride Level 106 mmol/L (98-107) Carbon Dioxide Level 23 mmol/L (21-32) Anion Gap 16 (6-14) Blood Urea Nitrogen 20 mg/dL (8-26) Creatinine 3.4 mg/dL (0.7-1.3) Estimated GFR (Cockcroft-Gault) 17.2 Glucose Level 50 mg/dL (70-99) Calcium Level 7.7 mg/dL (8.5-10.1) Micro Microbiology 09/26/21 Blood Culture - Preliminary, Resulted NO GROWTH AFTER 1 DAY Objective Assessment IMPRESSION: 1. Leukocytosis, which is improving. 2. Pleural effusion. 3. Neck pain. The CT has been ordered. Rule out diskitis. 4. End-stage renal disease, on hemodialysis. 5. Hypertension. 6. Diabetes. 7. Very poor nutrition with albumin 1.3. Plan Plan of Care d/c antibiotics supportive care BESSY ARMSTRONG MD September 28, 2021 13:21
--- NOTE | 2021-09-28 13:56 | NUR ---
upon return from dialysis (1 L taken off, bp 128/61, p 77), STAT order for thoracentesis from Dr Zambrano/IR. Pt taken down, report received from IR, 1500ml taken from R side and 1450ml taken from L side, pt pressure at 80/30. Call to Dr Ladd, VO given for albumin, verified and ordered.
[2021-09-28] MEDS ORDERED: ALBUMIN HUMAN 25% 100 ML IV ONE (14:00)
[2021-09-28 15:41] LABS: BF CLARITY CLEAR; BF COLOR YELLOW; BF SOURCE PLEURAL
[2021-09-28 15:42] LABS: BF MON % 13 %; BF OTHER % 65 %; BF PMN % 22 %; BF RBC COUNT 10 /cmm (Not Established); BF WBC COUNT 30 /cmm (Not Established)
--- NOTE | 2021-09-28 16:05 | NUR ---
SS following up with discharge planning. SS reviewed pt chart and discussed with pt RN. Pt is resident from the [facility] at the [facility]. Contact is WADE Mcduffie RN, ext. [phone]; fax [phone]. Pt is currently on room air. Pt on IV Zosyn. Pt has outpatient hemodialysis at [facility], ; fax [phone], Sunday, Sunday, and Sunday. Pt is currently on room air. PT/OT recommended jail unit. COVID19 negative. Pt had Thoracentesis today. SS will continue to follow for discharge planning.
--- NOTE | 2021-09-28 19:35 | NUR ---
Pt denied pain at this time, assessment completed vss poc explained pt glucose spot checked pt glucose 59 hypoglycemia protocol initiated will resume care and continue to monitor pt.Call light in reach bed alarm is set.
[2021-09-28] MEDS: ATORVASTATIN CALCIUM 40 MG TABLET. PO SCH (21:36)
[2021-09-29 02:59] VITALS: BP 111/54
[2021-09-29] MEDS: LEVOTHYROXINE 88 MCG TABLET PO SCH (05:57)
[2021-09-29 07:00] VITALS: BP 115/53
[2021-09-29 08:16] LABS: CALCIUM 7.8 mg/dL (8.5-10.1); CREATININE 2.5 mg/dL (0.7-1.3); GFR 24.6; POTASSIUM 3.2 mmol/L (3.5-5.1)
[2021-09-29] MEDS: SENNOSIDES/DOCUSATE 8.6/50MG TABLET. PO SCH ×2 (08:45→20:40)
[2021-09-29] MEDS: MIDODRINE 5 MG TABLET PO SCH ×3 (08:47→17:00)
[2021-09-29] MEDS: FOLIC/VIT B COMP W-C (RENAL) TABLET. PO SCH (08:47)
--- NOTE | 2021-09-29 08:47 | PDOC ---
PULMONARY PROGRESS NOTES DATE: 09/29/21 TIME: 08:47 Subjective Patient on room air, not more short of air Vitals Vital Signs Date Time Temp Pulse Resp B/P (MAP) Pulse Ox O2 Delivery O2 Flow Rate FiO2 09/29/21 07:00 98.1 102 18 115/53 (73) 96 Room Air 98.1 ROS: No Nausea, No Chest Pain, No Abdominal Pain, No Increase Cough Lungs: Clear, Other (Diminished breath sounds in the bases) Cardiovascular: S1, S2 Abdomen: Soft Neuro Exam: Alert Skin: Warm Labs Laboratory Tests Test 09/27/21 11:10 09/27/21 15:15 09/27/21 16:41 09/28/21 04:30 White Blood Count 11.4 x10^3/uL (4.0-11.0) 12.2 x10^3/uL (4.0-11.0) Red Blood Count 2.52 x10^6/uL (4.30-5.70) 2.55 x10^6/uL (4.30-5.70) Hemoglobin 8.9 g/dL (13.0-17.5) 9.0 g/dL (13.0-17.5) Hematocrit 27.2 % (39.0-53.0) 28.9 % (39.0-53.0) Mean Corpuscular Volume 108 fL (79-100) 110 fL (79-100) Mean Corpuscular Hemoglobin 35 pg (25-35) 35 pg (25-35) Mean Corpuscular Hemoglobin Concent 33 g/dL (31-37) 31 g/dL (31-37) Red Cell Distribution Width 19.8 % (11.5-14.5) 21.1 % (11.5-14.5) Platelet Count 252 x10^3/uL (140-400) 236 x10^3/uL (140-400) Neutrophils (%) (Auto) 80 % (31-73) 83 % (31-73) Lymphocytes (%) (Auto) 12 % (24-48) 10 % (24-48) Monocytes (%) (Auto) 8 % (0-9) 7 % (0-9) Eosinophils (%) (Auto) 1 % (0-3) 1 % (0-3) Basophils (%) (Auto) 0 % (0-3) 0 % (0-3) Neutrophils # (Auto) 9.1 x10^3/uL (1.8-7.7) 10.1 x10^3/uL (1.8-7.7) Lymphocytes # (Auto) 1.3 x10^3/uL (1.0-4.8) 1.2 x10^3/uL (1.0-4.8) Monocytes # (Auto) 0.9 x10^3/uL (0.0-1.1) 0.8 x10^3/uL (0.0-1.1) Eosinophils # (Auto) 0.1 x10^3/uL (0.0-0.7) 0.1 x10^3/uL (0.0-0.7) Basophils # (Auto) 0.0 x10^3/uL (0.0-0.2) 0.0 x10^3/uL (0.0-0.2) Sodium Level 144 mmol/L (136-145) 145 mmol/L (136-145) Potassium Level 3.8 mmol/L (3.5-5.1) 3.4 mmol/L (3.5-5.1) Chloride Level 105 mmol/L (98-107) 106 mmol/L (98-107) Carbon Dioxide Level 27 mmol/L (21-32) 23 mmol/L (21-32) Anion Gap 12 (6-14) 16 (6-14) Blood Urea Nitrogen 16 mg/dL (8-26) 20 mg/dL (8-26) Creatinine 2.8 mg/dL (0.7-1.3) 3.4 mg/dL (0.7-1.3) Estimated GFR (Cockcroft-Gault) 21.5 17.2 Glucose Level 71 mg/dL (70-99) 50 mg/dL (70-99) Calcium Level 7.8 mg/dL (8.5-10.1) 7.7 mg/dL (8.5-10.1) Coronavirus (COVID-19)(PCR) Not detected (NOT DETECTD) Erythrocyte Sedimentation Rate 65 (0-15) C-Reactive Protein, Quantitative 23.0 mg/L (0-3.3) Test 09/28/21 13:15 09/28/21 15:19 09/28/21 19:59 09/28/21 21:42 Body Fluid Source Pleural Body Fluid Color Yellow Body Fluid Clarity Clear Body Fluid pH 7.77 Body Fluid Nucleated Cells 30 /cmm (Not Established) Body Fluid Mononuclear WBCs (%) 13 % Body Fluid Polymorphonuclear Cells 22 % Body Fluid Total RBCs Counted 10 /cmm (Not Established) Body Fluid Other Cells (%) 65 % Glucose (Fingerstick) 55 mg/dL (70-99) 59 mg/dL (70-99) 84 mg/dL (70-99) Test 09/29/21 03:07 09/29/21 06:50 09/29/21 07:48 Glucose (Fingerstick) 70 mg/dL (70-99) 67 mg/dL (70-99) Sodium Level 142 mmol/L (136-145) Potassium Level 3.2 mmol/L (3.5-5.1) Chloride Level 105 mmol/L (98-107) Carbon Dioxide Level 27 mmol/L (21-32) Anion Gap 10 (6-14) Blood Urea Nitrogen 13 mg/dL (8-26) Creatinine 2.5 mg/dL (0.7-1.3) Estimated GFR (Cockcroft-Gault) 24.6 Glucose Level 71 mg/dL (70-99) Calcium Level 7.8 mg/dL (8.5-10.1) Laboratory Tests Test 09/28/21 13:15 09/28/21 15:19 09/28/21 19:59 09/28/21 21:42 Body Fluid Source Pleural Body Fluid Color Yellow Body Fluid Clarity Clear Body Fluid pH 7.77 Body Fluid Nucleated Cells 30 /cmm (Not Established) Body Fluid Mononuclear WBCs (%) 13 % Body Fluid Polymorphonuclear Cells 22 % Body Fluid Total RBCs Counted 10 /cmm (Not Established) Body Fluid Other Cells (%) 65 % Glucose (Fingerstick) 55 mg/dL (70-99) 59 mg/dL (70-99) 84 mg/dL (70-99) Test 09/29/21 03:07 09/29/21 06:50 09/29/21 07:48 Glucose (Fingerstick) 70 mg/dL (70-99) 67 mg/dL (70-99) Sodium Level 142 mmol/L (136-145) Potassium Level 3.2 mmol/L (3.5-5.1) Chloride Level 105 mmol/L (98-107) Carbon Dioxide Level 27 mmol/L (21-32) Anion Gap 10 (6-14) Blood Urea Nitrogen 13 mg/dL (8-26) Creatinine 2.5 mg/dL (0.7-1.3) Estimated GFR (Cockcroft-Gault) 24.6 Glucose Level 71 mg/dL (70-99) Calcium Level 7.8 mg/dL (8.5-10.1) Medications Active Scripts Medications Dose Route/Sig Max Daily Dose Days Date Category Dose Instructions Acetaminophen 325 Mg Tablet 650 Mg PO PRN Q6HRS PRN 09/22/21 Reported Polyethylene Glycol 3350 17 Gm Powd.pack 17 Gm PO PRN DAILY PRN 09/22/21 Reported Arthritis Pain (Diclofenac Sodium) 100 Gm Gel..gram. 2 Gm TP PRN QID PRN 09/22/21 Reported Fludrocortisone Acetate 0.1 Mg Tablet 0.2 Mg PO DAILY 09/22/21 Reported Midodrine Hcl 5 Mg Tablet 5 Mg PO TID 09/22/21 Reported Tramadol Hcl 50 Mg Tablet 25 Mg PO PRN Q12HR PRN 09/22/21 Reported Senna-Docusate Sodium Tablet (Sennosides/Docusate Sodium) 1 Each Tablet 2 Tab PO BID 20 09/22/21 Reported Renal Vitamin Tablet (Folic Acid/Vit Bcomp,C) 0.8 Mg Tablet 0.8 Mg PO DAILY 04/25/21 Reported Vitamin D3 (Cholecalciferol (Vitamin D3)) 125 Mcg Tablet 1,250 Mcg PO QFR 04/25/21 Reported Take at 0700 Zetia (Ezetimibe) 10 Mg Tablet 10 Mg PO DAILY 01/20/19 Reported Synthroid (Levothyroxine Sodium) 75 Mcg Tablet 88 Mcg PO DAILYAC 01/20/19 Reported Ranexa (Ranolazine) 500 Mg Tab.er.12h 500 Mg PO BID 01/20/19 Reported Crestor (Rosuvastatin Calcium) 40 Mg Tablet 40 Mg PO HS 01/20/19 Reported Impression . IMPRESSION: 1. Abnormal x-ray, compatible with pulmonary edema and bilateral pleural effusions. 2. End-stage renal disease, on hemodialysis. 3. Severe protein malnutrition. 4. Leukocytosis. 5. Elevated procalcitonin. 6. Possible pneumonia. 7. Coronary artery disease with previous stent placement. 8. End-stage renal disease on hemodialysis since 12/2020. 9. Acute blood loss anemia. 10. Atrial fibrillation with rapid ventricular response. 11. Bilateral effusion status postthoracentesis analysis pending Plan . Updated 09/[address] Wilberto Bone to transfer back Follow-up in the office once discharged MARQUIS ARIZMENDI MD September 29, 2021 08:47
[2021-09-29] MEDS: FLUDROCORTISONE 0.1 MG TABLET PO SCH (08:48)
[2021-09-29] MEDS: LACTOBACILLUS RHAMNOSUS GG 1 CAPSULE. PO SCH ×2 (08:48→20:40)
--- NOTE | 2021-09-29 10:17 | PDOC ---
CARDIO Progress Notes Date and Time Date of Service 09/29/2021 Time of Evaluation 0930 Subjective Subjective: No Chest Pain, No shortness of breath, No Palpitations Vitals Vitals Vital Signs Date Time Temp Pulse Resp B/P (MAP) Pulse Ox O2 Delivery O2 Flow Rate FiO2 09/29/21 08:47 102 115/53 09/29/21 08:00 Room Air 09/29/21 07:00 98.1 18 96 98.1 Weight Weight [ ] Input and Output Intake and Output Intake and Output 09/29/21 07:00 Intake Total 178 ml Output Total 3150 ml Balance -2972 ml Intake Oral 178 ml Output Urine Total 200 ml Drainage Total 2950 ml # Bowel Movements 2 Laboratory Labs Laboratory Tests Test 09/28/21 13:15 09/28/21 15:19 09/28/21 19:59 09/28/21 21:42 Body Fluid Source Pleural Body Fluid Color Yellow Body Fluid Clarity Clear Body Fluid pH 7.77 Body Fluid Nucleated Cells 30 /cmm (Not Established) Body Fluid Mononuclear WBCs (%) 13 % Body Fluid Polymorphonuclear Cells 22 % Body Fluid Total RBCs Counted 10 /cmm (Not Established) Body Fluid Other Cells (%) 65 % Glucose (Fingerstick) 55 mg/dL (70-99) 59 mg/dL (70-99) 84 mg/dL (70-99) Test 09/29/21 03:07 09/29/21 06:50 09/29/21 07:48 Glucose (Fingerstick) 70 mg/dL (70-99) 67 mg/dL (70-99) Sodium Level 142 mmol/L (136-145) Potassium Level 3.2 mmol/L (3.5-5.1) Chloride Level 105 mmol/L (98-107) Carbon Dioxide Level 27 mmol/L (21-32) Anion Gap 10 (6-14) Blood Urea Nitrogen 13 mg/dL (8-26) Creatinine 2.5 mg/dL (0.7-1.3) Estimated GFR (Cockcroft-Gault) 24.6 Glucose Level 71 mg/dL (70-99) Calcium Level 7.8 mg/dL (8.5-10.1) Microbiology Micro Microbiology 09/26/21 Blood Culture - Preliminary, Resulted NO GROWTH AFTER 2 DAYS Review of Systems Constitutional: yes: alert, oriented Ears/Nose/Throat: Yes: no symptom reported Eyes: Yes: no symptom reported Pulmonary: Yes no symptom reported Cardiovascular: Yes no symptom reported Gastrointestional: Yes: no symptom reported Genitourinary: Yes: no symptom reported Musculoskeletal: Yes: no symptom reported Skin: Yes no symptom reported Psychiatric/Neurological: Yes: no symptom reported Physical Exam HEENT: Neck Supple W Full Motion Chest: Symmetric LUNGS: Other (diminished) Heart: RRR (SR) Abdomen: Soft N/T Extremities: No Calf Tenderness Neurology: alert, oriented, follow commands Assessment Assessment 1. AFIB RVR: new finding in the setting of hypokalemia and anemia. No strips available to review from dialysis center. Maintaining SR/ST. No prior h/o AFIB 2. Hypokalemia; replaced 3. Macrocytic anemia: s/p transfusion. hgb stable 4. Hx of syncope related to orthostatic hypotension. Renexa discontinued. on Midodrine and Florinef 5. CAD: past stents. clinically stable 6. HTN: controlled. reported hypotension during HD possibly due to RVR 7. ESRD 8. Presyncope 9. Protein calorie malnutrition, anasarca 10. Mild troponin elevation: no CP. Suspect demand mediated with RVR and anemia. Recent TTE with nml EF and WM 11. Dyspnea secondary to pleural effusion. S/P thoracentesis 1.5 L right and 1.45 left 12. Protein malnutrition Recommendations Continue Midodrine, Florinef Fluid management via HD Consider outpt ischemic eval. MCOT to ascertain AFIB burden. Discussed with Sonali Lopez APRN at cardiology as he is to follow up with her Supportive care Justicifation of Admission Dx: Justifications for Admission: Justification of Admission Dx: N/A PEDRO GARCIA APRN September 29, 2021 10:17
--- NOTE | 2021-09-29 10:42 | PDOC ---
Renal-Progress Notes Subjective Notes Notes NO NEW COMPLAINTS History of Present Illness Hx of present illness STABLE Vitals Vitals Vital Signs Date Time Temp Pulse Resp B/P (MAP) Pulse Ox O2 Delivery O2 Flow Rate FiO2 09/29/21 08:47 102 115/53 09/29/21 08:00 Room Air 09/29/21 07:00 98.1 18 96 98.1 Weight Weight [ ] I.O. Intake and Output Intake and Output 09/29/21 07:00 Intake Total 178 ml Output Total 3150 ml Balance -2972 ml Intake Oral 178 ml Output Urine Total 200 ml Drainage Total 2950 ml # Bowel Movements 2 Labs Labs Laboratory Tests Test 09/28/21 13:15 09/28/21 15:19 09/28/21 19:59 09/28/21 21:42 Body Fluid Source Pleural Body Fluid Color Yellow Body Fluid Clarity Clear Body Fluid pH 7.77 Body Fluid Nucleated Cells 30 /cmm (Not Established) Body Fluid Mononuclear WBCs (%) 13 % Body Fluid Polymorphonuclear Cells 22 % Body Fluid Total RBCs Counted 10 /cmm (Not Established) Body Fluid Other Cells (%) 65 % Glucose (Fingerstick) 55 mg/dL (70-99) 59 mg/dL (70-99) 84 mg/dL (70-99) Test 09/29/21 03:07 09/29/21 06:50 09/29/21 07:48 Glucose (Fingerstick) 70 mg/dL (70-99) 67 mg/dL (70-99) Sodium Level 142 mmol/L (136-145) Potassium Level 3.2 mmol/L (3.5-5.1) Chloride Level 105 mmol/L (98-107) Carbon Dioxide Level 27 mmol/L (21-32) Anion Gap 10 (6-14) Blood Urea Nitrogen 13 mg/dL (8-26) Creatinine 2.5 mg/dL (0.7-1.3) Estimated GFR (Cockcroft-Gault) 24.6 Glucose Level 71 mg/dL (70-99) Calcium Level 7.8 mg/dL (8.5-10.1) Micro Micro Microbiology 09/26/21 Blood Culture - Preliminary, Resulted NO GROWTH AFTER 2 DAYS Review of Systems Constitutional: yes: alert, oriented Ears/Nose/Throat: Yes: no symptom reported Eyes: Yes: no symptom reported Pulmonary: Yes no symptom reported Cardiovascular: Yes no symptom reported Gastrointestional: Yes: no symptom reported Genitourinary: Yes: no symptom reported Musculoskeletal: Yes: no symptom reported Skin: Yes no symptom reported Psychiatric/Neurological: Yes: no symptom reported Physical Exam General Appearance: no apparent distress Skin: warm Respiratory: bilateral CTA Heart: S1S2 Abdomen: soft, bowel sounds present Genitourinary: bladder flat Extremities: pulses present, atrophy Neurology: alert, oriented, follow commands Musculoskeletal: Osteoarthritis Assessment Assessment IMP ESRD-MWF S/P L ARM AV ACCESS REVISION AND RIGHT IJ TDC PLACEMENT ANEMIA AFIB RVR HYPOTENSION-RESOLVED HYPOKALEMIA-CORRECTED LEUCOCYTOSIS HX CAD PLAN BOO HD TOMORROW ANTIBIOTICS LEFT ARM AV ACCESS WHEN READY USE RIGHT IJ TDC FOR NOW CARDIOLOGY EVALUATION WILL FOLLOW ENRRIQUE BENNETT MD September 29, 2021 10:42
[2021-09-29 11:00] VITALS: BP 133/54
--- NOTE | 2021-09-29 12:39 | PDOC ---
[facility] PROGRESS NOTE Date of Service DOS: DATE: 09/29/21 TIME: 12:36 Chief Complaint Chief Complaint Acute anemia Hypokalemia Bilateral pleural effusions CAD status post stent x4 - stable.Follows [facility] Hypothyroidism - on replacement HTN - Given age over 80 may be more liberal blood pressure parameters should be pursued 150/90 as threshold for tx and as needed midodrine on dialysis days ESRD on HD since December 2020 - dialysis per nephrology Hypokalemia - monitor, replace per nephrology Severe protein calorie malnutrition - likely related to ESRD status, nutrition Neck pain -concern for discitis FEN - Renal dialysis PPX - SCDs FULL CODE Dispo - inpatient History of Present Illness History of Present Illness PerformedMrJersey is an 86-year-old male with PMHx CAD status post stent x4, hypothyroidism, HTN, ESRD on HD since December 2020 who presents to the ED from dialysis confused and in AFIB RVR which was noted while having dialysis as well as hypotension. He is s/p left upper extremity AV graft thrombectomy and angioplasty on 09/22/21. EKG in ED begins irregular and then appears sinus rhythm within 6 seconds. WBC 15.6, Hb 6.7 with MCV 109, platelets 327, PTT greater than 150, INR 1.1, NA 138, K2.8, BUN 34, CR 3.9, glucose 160, albumin 0.9, high-sensitivity troponin was 235. Head CT with no acute abnormalities chest radiograph bilateral pleural effusions. 09/24: Tolerated dialysis today. A little less confused. Blood pressure low and still tachycardic being closely monitored on telemetry. Transfuse for Hb of 6.7 improved to 8.6. Still with large leukocytosis. 09/25: Hb 7.4, K2.9. Still with positive orthostatic systolic blood pressure in the 100s despite midodrine and Florinef. We will repeat a.m. cortisol replace potassium discussed with nephrology potassium adjustment. 09/26: WBC 13 today still has little bit of a cough now with some neck pain on extension and worse focal pain Nasif 5 6 and T1 interdisc spaces posteriorly. Will obtain CT cervical spine and thoracic spine and consult ID for persistent leukocytosis. Unfortunately patient was admitted on antibiotics without any cultures. 09/27: Chest radiograph looks worse per discussion with pulmonology. CT neck and chest and thorax for today with IV contrast per facility policy can only be administered on dialysis days. He still is having neck pain 09/28: Afebrile. CT cervical spine and thoracic spine showing compression fracture in T4, T5; no evidence of discitis in cervical or thoracic spine large bilateral pleural effusions have increased. Discussed with Dr. Zambrano, will perform thoracentesis tomorrow. Patient has worked with PT and recommended SNU. Continue midodrine and Florinef; outpatient ischemic evaluation. Continue HD, per nephrology. 09/29: Patient seen resting at bedside chair. Had thoracentesis yesterday with some improvement in his respirations. Discussed with pulmonology, he is stable to discharge back to his [place] tomorrow. Continue HD, per nephrology. His IV Zosyn has been discontinued; CT cervical and thoracic spine with no evidence of discitis. Will place SNU orders for anticipated discharge tomorrow. Vitals/I&O Vitals/I&O: Vital Signs Date Time Temp Pulse Resp B/P (MAP) Pulse Ox O2 Delivery O2 Flow Rate FiO2 09/29/21 11:00 98.4 98 18 133/54 (80) 95 Room Air 98.4 I & O 09/28/21 09/28/21 09/29/21 15:00 23:00 07:00 Intake Total 0 ml 178 ml 0 ml Output Total 2950 ml 200 ml Balance -2950 ml 178 ml -200 ml Physical Exam Physical Exam: GENERAL: Alert, oriented gentleman, not in distress. VITAL SIGNS: Stable, afebrile. HEENT: NAD. NECK: Supple, no JVP, no lymphadenopathy. LUNGS: Clear. HEART: S1, S2, regular. ABDOMEN: Soft, nontender, no organomegaly. EXTREMITIES: Does have upper extremity edema. Lower extremity has mild pitting edema. Rest of the skin exam is unremarkable. Hemodialysis catheter is unremarkable. NEUROLOGIC: The patient is alert, awake and appropriate. No focal neurologic deficit. General: Alert, Cooperative, No acute distress Heart: Other (IRREGULAR AFIB) Lungs: Clear, Other (Diminished breath sounds in the bases) Abdomen: Normal bowel sounds Extremities: No clubbing Skin: No breakdown Labs Labs: Laboratory Tests Test 09/28/21 13:15 09/28/21 15:19 09/28/21 19:59 09/28/21 21:42 Body Fluid Source Pleural Body Fluid Color Yellow Body Fluid Clarity Clear Body Fluid pH 7.77 Body Fluid Nucleated Cells 30 /cmm (Not Established) Body Fluid Mononuclear WBCs (%) 13 % Body Fluid Polymorphonuclear Cells 22 % Body Fluid Total RBCs Counted 10 /cmm (Not Established) Body Fluid Other Cells (%) 65 % Glucose (Fingerstick) 55 mg/dL (70-99) 59 mg/dL (70-99) 84 mg/dL (70-99) Test 09/29/21 03:07 09/29/21 06:50 09/29/21 07:48 09/29/21 11:11 Glucose (Fingerstick) 70 mg/dL (70-99) 67 mg/dL (70-99) 89 mg/dL (70-99) Sodium Level 142 mmol/L (136-145) Potassium Level 3.2 mmol/L (3.5-5.1) Chloride Level 105 mmol/L (98-107) Carbon Dioxide Level 27 mmol/L (21-32) Anion Gap 10 (6-14) Blood Urea Nitrogen 13 mg/dL (8-26) Creatinine 2.5 mg/dL (0.7-1.3) Estimated GFR (Cockcroft-Gault) 24.6 Glucose Level 71 mg/dL (70-99) Calcium Level 7.8 mg/dL (8.5-10.1) Assessment and Plan Assessmemt and Plan Problems Medical Problems: (1) Hypokalemia Status: Acute (2) Hypotension Status: Acute (3) Low hemoglobin Status: Acute Comment Review of Relevant I have reviewed the following items madonna (where applicable) has been applied. Medications: Current Medications Medications (Trade) Dose Ordered Sig/Krzysztof Route PRN Reason Start Time Stop Time Status Last Admin Dose Admin Albumin Human 100 ml @ 100 mls/hr 1X ONCE IV 09/28/21 14:00 09/28/21 14:59 DC 09/28/21 14:13 Justifications for Admission Other Justification KARIME GAUTAM MD September 29, 2021 12:39
--- NOTE | 2021-09-29 12:42 | SNU/HH DC ---
DISCHARGE ORDERS DISCHARGE INFORMATION: DISCHARGE DATE: September 30, 2021 FINAL DIAGNOSIS Problems Medical Problems: (1) Hypokalemia Status: Acute (2) Hypotension Status: Acute (3) Low hemoglobin Status: Acute CONDITION ON DISCHARGE: Stable CODE STATUS: Code Status: Full MCFP: SNF STAY <30 DAYS: Yes POST DISCHARGE ORDERS: ACTIVITY ORDERS: Activity as tolerated WEIGHT BEARING STATUS: Full weight bearing, Other, see below BATHING ORDERS: Shower-keep dressing dry DIET AFTER DISCHARGE: Renal WOUND/INCISION CARE: Do not change dressing FOLLOW-UP: LAB ORDERS FOR FOLLOW-UP: BMP check for possible hyperkalemia TREATMENT/EQUIPMENT ORDERS: ADAPTIVE EQUIPMENT NEEDED: Walker Physical Therapy For: Evalulation/Treatment Occupational Therapy For: Evaluation/Treatment DISCHARGE MEDICATIONS: Home Meds Reported Medications Acetaminophen (ACETAMINOPHEN) 325 Mg Tablet, 650 MG PO PRN Q6HRS PRN for MILD PAIN 1-3, TAB 09/22/21 Polyethylene Glycol 3350 (POLYETHYLENE GLYCOL 3350) 17 Gm Powd.pack, 17 GM PO PRN DAILY PRN for CONSTIPATION, PKT 09/22/21 Diclofenac Sodium (Arthritis Pain) 100 Gm Gel..gram., 2 GM TP PRN QID PRN for PAIN, EACH 09/22/21 Fludrocortisone Acetate (FLUDROCORTISONE ACETATE) 0.1 Mg Tablet, 0.2 MG PO DAILY for Orthostatic Hypotension, TAB 09/22/21 Midodrine Hcl (MIDODRINE HCL) 5 Mg Tablet, 5 MG PO TID for Hypotension, TAB 09/22/21 Tramadol Hcl (TRAMADOL HCL) 50 Mg Tablet, 25 MG PO PRN Q12HR PRN for PAIN, TAB 0 Refills 09/22/21 Sennosides/Docusate Sodium (Senna-Docusate Sodium Tablet) 1 Each Tablet, 2 TAB PO BID for Constipation for 20 Days, #80 TAB 0 Refills 09/22/21 Folic Acid/Vit Bcomp,C (Renal Vitamin Tablet) 0.8 Mg Tablet, 0.8 MG PO DAILY for renal health, TAB 04/25/21 Cholecalciferol (Vitamin D3) (Vitamin D3) 125 Mcg Tablet, 1250 MCG PO QFR for supplement, TAB Take at 0700 04/25/21 Ezetimibe (ZETIA) 10 Mg Tablet, 10 MG PO DAILY for TREAT HYPERLIPIDEMIA, TAB 01/20/19 Levothyroxine Sodium (SYNTHROID) 75 Mcg Tablet, 88 MCG PO DAILYAC for THYROID SUPPLEMENT, #30 TAB 0 Refills 01/20/19 Ranolazine (RANEXA) 500 Mg Tab.er.12h, 500 MG PO BID for TO TREAT ANGINA, TAB.SR 01/20/19 Rosuvastatin Calcium (CRESTOR) 40 Mg Tablet, 40 MG PO HS for FOR CHOLESTEROL, #30 TAB 0 Refills 01/20/19 Discontinued Reported Medications Aspirin (ASPIRIN) 81 Mg Tab.chew, 81 MG PO DAILY for BLOOD THINNER, TAB.CHEW 01/20/19 KARIME GAUTAM MD September 29, 2021 12:42
--- NOTE | 2021-09-29 13:12 | PDOC ---
Infectious Disease Note Subjective Subjective pt is feeling better ROS ROS no n/v/d/fever Vital Sign Vital Signs Vital Signs Date Time Temp Pulse Resp B/P (MAP) Pulse Ox O2 Delivery O2 Flow Rate FiO2 09/29/21 11:00 98.4 98 18 133/54 (80) 95 Room Air 98.4 Physical Exam PHYSICAL EXAM GENERAL: Alert, oriented gentleman, not in distress. VITAL SIGNS: Stable, afebrile. HEENT: NAD. NECK: Supple, no JVP, no lymphadenopathy. LUNGS: Clear. HEART: S1, S2, regular. ABDOMEN: Soft, nontender, no organomegaly. EXTREMITIES: Does have upper extremity edema. Lower extremity has mild pitting edema. Rest of the skin exam is unremarkable. Hemodialysis catheter is unremarkable. NEUROLOGIC: The patient is alert, awake and appropriate. No focal neurologic deficit. Labs Lab Laboratory Tests Test 09/28/21 13:15 09/28/21 15:19 09/28/21 19:59 09/28/21 21:42 Body Fluid Source Pleural Body Fluid Color Yellow Body Fluid Clarity Clear Body Fluid pH 7.77 Body Fluid Nucleated Cells 30 /cmm (Not Established) Body Fluid Mononuclear WBCs (%) 13 % Body Fluid Polymorphonuclear Cells 22 % Body Fluid Total RBCs Counted 10 /cmm (Not Established) Body Fluid Other Cells (%) 65 % Glucose (Fingerstick) 55 mg/dL (70-99) 59 mg/dL (70-99) 84 mg/dL (70-99) Test 09/29/21 03:07 09/29/21 06:50 09/29/21 07:48 09/29/21 11:11 Glucose (Fingerstick) 70 mg/dL (70-99) 67 mg/dL (70-99) 89 mg/dL (70-99) Sodium Level 142 mmol/L (136-145) Potassium Level 3.2 mmol/L (3.5-5.1) Chloride Level 105 mmol/L (98-107) Carbon Dioxide Level 27 mmol/L (21-32) Anion Gap 10 (6-14) Blood Urea Nitrogen 13 mg/dL (8-26) Creatinine 2.5 mg/dL (0.7-1.3) Estimated GFR (Cockcroft-Gault) 24.6 Glucose Level 71 mg/dL (70-99) Calcium Level 7.8 mg/dL (8.5-10.1) Micro Microbiology 09/26/21 Blood Culture - Preliminary, Resulted NO GROWTH AFTER 1 DAY Objective Assessment IMPRESSION: 1. Leukocytosis, which is improving. 2. Pleural effusion. 3. Neck pain. The CT has been ordered. Rule out diskitis. 4. End-stage renal disease, on hemodialysis. 5. Hypertension. 6. Diabetes. 7. Very poor nutrition with albumin 1.3. Plan Plan of Care off antibiotics will s/o, call if questions supportive care BESSY ARMSTRONG MD September 29, 2021 13:12
--- NOTE | 2021-09-29 14:10 | RAD ---
Procedure: Bilateral thoracentesis 09/28/2021 Clinical Indication: Bilateral pleural effusions Anesthesia: Local anesthesia only. Continuous cardiopulmonary monitoring was performed by independent qualified nursing personnel. Complications: None Consent: The procedure was explained in its entirety to the patient or the patients designated repre sentative by a member of the treatment team, including a discussion of the risks, benefits and common ly accepted alternatives to the procedure, as well as the expected consequences of no therapy whatsoe wesly. Discussion of the risks included, but was not limited to, those that are most frequent and those that are rare but possibly severe or life-threatening, as well as the possibility of unforeseen comp lications. All questions were answered and informed consent was obtained. Sterility: All elements of maximal sterile barrier technique including the use of a cap, mask, steril e gown, sterile gloves, appropriate hand hygiene, and 2% chlorhexidine for cutaneous antisepsis (or a cceptable alternative antiseptic per current guidelines) were followed for this procedure. Left: Patient was placed in the upright position. Limited ultrasound scanning over the back for local ization of the left pleural effusion. Overlying skin posteriorly was marked with ultrasound and then sterilely prepped and draped. Local anesthesia with 1% lidocaine. A 5 Fr Yueh catheter was then en tered into the pleural space and 1.45 L of clear yellow fluid was were obtained utilizing negative jeter ction bottles. Samples were sent for lab analysis. There were no immediate complications. Sterile dr essing was placed. Right: Limited ultrasound scanning over the back for localization of the right pleural effusion. Ove rlying skin posteriorly was marked with ultrasound and then sterilely prepped and draped. Local anes thesia with 1% lidocaine. A 5 Fr Yueh catheter was then entered into the pleural space and 1.5 L of clear yellow fluid was were obtained utilizing negative suction bottles. Samples were sent for lab an alysis. There were no immediate complications. Sterile dressing was placed. Impression: Bilateral ultrasound-guided thoracentesis, approximately 1.5 L of fluid fluid was removed from each s milagros. Electronically signed by: Dima Corona MD (09/29/2021 2:08 PM) [id number]
--- NOTE | 2021-09-29 14:50 | NUR ---
SS following up with discharge planning. SS reviewed pt chart and discussed with pt RN. Pt is resident from the [facility] at the [facility]. Contact is WADE Mcduffie RN, ext. [phone]; fax [phone]. Pt is currently on room air. Pt has outpatient hemodialysis at [facility], ; fax [phone], Sunday, Sunday, and Sunday. PT/OT recommended detention unit. COVID19 negative. Discharge orders received for tomorrow. Discharge orders and updated clinical sent to [facility]. Pt to get dialysis in the morning. Pt will discharge tomorrow and return to the [facility] detention unit between 1130 and 1230 via [facility], . Packet on chart. SS will continue to follow for discharge planning.
[2021-09-29 15:00] VITALS: BP 121/56
[2021-09-29 19:26] VITALS: BP 105/58
--- NOTE | 2021-09-29 19:32 | NUR ---
pt is to go to dialysis first thing in the morning. He is going to be discharged and picked up at 1130 09/30/21
[2021-09-29] MEDS: ATORVASTATIN CALCIUM 40 MG TABLET. PO SCH (20:40)
[2021-09-29 23:03] VITALS: BP 106/52
[2021-09-30 02:26] VITALS: BP 127/53
[2021-09-30] MEDS: LEVOTHYROXINE 88 MCG TABLET PO SCH (06:44)
[2021-09-30] MEDS ORDERED: DIALYSIS PATIENT. MC PRN ×2 (07:45)
[2021-09-30 07:49] LABS: CALCIUM 7.5 mg/dL (8.5-10.1); CREATININE 3.2 mg/dL (0.7-1.3); GFR 18.5
[2021-09-30 07:56] LABS: POTASSIUM 2.6 mmol/L (3.5-5.1)
[2021-09-30 08:18] VITALS: BP 71/45
[2021-09-30] MEDS: MIDODRINE 5 MG TABLET PO SCH (08:18)
--- NOTE | 2021-09-30 08:33 | PDOC ---
Infectious Disease Note Subjective Subjective pt is feeling better ROS ROS no n/v/d/sob Vital Sign Vital Signs Vital Signs Date Time Temp Pulse Resp B/P (MAP) Pulse Ox O2 Delivery O2 Flow Rate FiO2 09/30/21 08:18 119 71/45 09/30/21 02:26 98.0 16 96 Room Air 98.0 Physical Exam PHYSICAL EXAM GENERAL: Alert, oriented gentleman, not in distress. VITAL SIGNS: Stable, afebrile. HEENT: NAD. NECK: Supple, no JVP, no lymphadenopathy. LUNGS: Clear. HEART: S1, S2, regular. ABDOMEN: Soft, nontender, no organomegaly. EXTREMITIES: Does have upper extremity edema. Lower extremity has mild pitting edema. Rest of the skin exam is unremarkable. Hemodialysis catheter is unremarkable. NEUROLOGIC: The patient is alert, awake and appropriate. No focal neurologic deficit. Labs Lab Laboratory Tests Test 09/29/21 11:11 09/29/21 15:17 09/29/21 16:44 09/29/21 20:42 Glucose (Fingerstick) 89 mg/dL (70-99) 76 mg/dL (70-99) 116 mg/dL (70-99) SARS-CoV-2 Antigen (Rapid) Negative (NEGATIVE) Test 09/30/21 06:20 Sodium Level 140 mmol/L (136-145) Potassium Level 2.6 mmol/L (3.5-5.1) Chloride Level 103 mmol/L (98-107) Carbon Dioxide Level 27 mmol/L (21-32) Anion Gap 10 (6-14) Blood Urea Nitrogen 16 mg/dL (8-26) Creatinine 3.2 mg/dL (0.7-1.3) Estimated GFR (Cockcroft-Gault) 18.5 Glucose Level 77 mg/dL (70-99) Calcium Level 7.5 mg/dL (8.5-10.1) Micro Microbiology 09/26/21 Blood Culture - Preliminary, Resulted NO GROWTH AFTER 1 DAY Objective Assessment IMPRESSION: 1. Leukocytosis, which is improving. 2. Pleural effusion. 3. Neck pain. The CT has been ordered. Rule out diskitis. 4. End-stage renal disease, on hemodialysis. 5. Hypertension. 6. Diabetes. 7. Very poor nutrition with albumin 1.3. Plan Plan of Care off antibiotics will s/o, call if questions supportive care BESSY ARMSTRONG MD September 30, 2021 08:33
--- NOTE | 2021-09-30 08:59 | PDOC ---
PULMONARY PROGRESS NOTES DATE: 09/30/21 TIME: 08:59 Subjective Patient seen in the hemodialysis suite, not more short of air, on room air Vitals Vital Signs Date Time Temp Pulse Resp B/P (MAP) Pulse Ox O2 Delivery O2 Flow Rate FiO2 09/30/21 08:18 119 71/45 09/30/21 02:26 98.0 16 96 Room Air 98.0 ROS: No Nausea, No Chest Pain, No Abdominal Pain, No Increase Cough Lungs: Clear, Other (Diminished breath sounds in the bases) Cardiovascular: S1, S2 Abdomen: Soft Neuro Exam: Alert Skin: Warm Labs Laboratory Tests Test 09/28/21 13:15 09/28/21 15:19 09/28/21 19:59 09/28/21 21:42 Body Fluid Source Pleural Body Fluid Color Yellow Body Fluid Clarity Clear Body Fluid pH 7.77 Body Fluid Nucleated Cells 30 /cmm (Not Established) Body Fluid Mononuclear WBCs (%) 13 % Body Fluid Polymorphonuclear Cells 22 % Body Fluid Total RBCs Counted 10 /cmm (Not Established) Body Fluid Other Cells (%) 65 % Glucose (Fingerstick) 55 mg/dL (70-99) 59 mg/dL (70-99) 84 mg/dL (70-99) Test 09/29/21 03:07 09/29/21 06:50 09/29/21 07:48 09/29/21 11:11 Glucose (Fingerstick) 70 mg/dL (70-99) 67 mg/dL (70-99) 89 mg/dL (70-99) Sodium Level 142 mmol/L (136-145) Potassium Level 3.2 mmol/L (3.5-5.1) Chloride Level 105 mmol/L (98-107) Carbon Dioxide Level 27 mmol/L (21-32) Anion Gap 10 (6-14) Blood Urea Nitrogen 13 mg/dL (8-26) Creatinine 2.5 mg/dL (0.7-1.3) Estimated GFR (Cockcroft-Gault) 24.6 Glucose Level 71 mg/dL (70-99) Calcium Level 7.8 mg/dL (8.5-10.1) Test 09/29/21 15:17 09/29/21 16:44 09/29/21 20:42 09/30/21 06:20 SARS-CoV-2 Antigen (Rapid) Negative (NEGATIVE) Glucose (Fingerstick) 76 mg/dL (70-99) 116 mg/dL (70-99) Sodium Level 140 mmol/L (136-145) Potassium Level 2.6 mmol/L (3.5-5.1) Chloride Level 103 mmol/L (98-107) Carbon Dioxide Level 27 mmol/L (21-32) Anion Gap 10 (6-14) Blood Urea Nitrogen 16 mg/dL (8-26) Creatinine 3.2 mg/dL (0.7-1.3) Estimated GFR (Cockcroft-Gault) 18.5 Glucose Level 77 mg/dL (70-99) Calcium Level 7.5 mg/dL (8.5-10.1) Laboratory Tests Test 09/29/21 11:11 09/29/21 15:17 09/29/21 16:44 09/29/21 20:42 Glucose (Fingerstick) 89 mg/dL (70-99) 76 mg/dL (70-99) 116 mg/dL (70-99) SARS-CoV-2 Antigen (Rapid) Negative (NEGATIVE) Test 09/30/21 06:20 Sodium Level 140 mmol/L (136-145) Potassium Level 2.6 mmol/L (3.5-5.1) Chloride Level 103 mmol/L (98-107) Carbon Dioxide Level 27 mmol/L (21-32) Anion Gap 10 (6-14) Blood Urea Nitrogen 16 mg/dL (8-26) Creatinine 3.2 mg/dL (0.7-1.3) Estimated GFR (Cockcroft-Gault) 18.5 Glucose Level 77 mg/dL (70-99) Calcium Level 7.5 mg/dL (8.5-10.1) Medications Active Scripts Medications Dose Route/Sig Max Daily Dose Days Date Category Dose Instructions Acetaminophen 325 Mg Tablet 650 Mg PO PRN Q6HRS PRN 09/22/21 Reported Polyethylene Glycol 3350 17 Gm Powd.pack 17 Gm PO PRN DAILY PRN 09/22/21 Reported Arthritis Pain (Diclofenac Sodium) 100 Gm Gel..gram. 2 Gm TP PRN QID PRN 09/22/21 Reported Fludrocortisone Acetate 0.1 Mg Tablet 0.2 Mg PO DAILY 09/22/21 Reported Midodrine Hcl 5 Mg Tablet 5 Mg PO TID 09/22/21 Reported Tramadol Hcl 50 Mg Tablet 25 Mg PO PRN Q12HR PRN 09/22/21 Reported Senna-Docusate Sodium Tablet (Sennosides/Docusate Sodium) 1 Each Tablet 2 Tab PO BID 20 09/22/21 Reported Renal Vitamin Tablet (Folic Acid/Vit Bcomp,C) 0.8 Mg Tablet 0.8 Mg PO DAILY 04/25/21 Reported Vitamin D3 (Cholecalciferol (Vitamin D3)) 125 Mcg Tablet 1,250 Mcg PO QFR 04/25/21 Reported Take at 0700 Zetia (Ezetimibe) 10 Mg Tablet 10 Mg PO DAILY 01/20/19 Reported Synthroid (Levothyroxine Sodium) 75 Mcg Tablet 88 Mcg PO DAILYAC 01/20/19 Reported Ranexa (Ranolazine) 500 Mg Tab.er.12h 500 Mg PO BID 01/20/19 Reported Crestor (Rosuvastatin Calcium) 40 Mg Tablet 40 Mg PO HS 01/20/19 Reported Impression . IMPRESSION: 1. Abnormal x-ray, compatible with pulmonary edema and bilateral pleural effusions. 2. End-stage renal disease, on hemodialysis. 3. Severe protein malnutrition. 4. Leukocytosis. 5. Elevated procalcitonin. 6. Possible pneumonia. 7. Coronary artery disease with previous stent placement. 8. End-stage renal disease on hemodialysis since 12/2020. 9. Acute blood loss anemia. 10. Atrial fibrillation with rapid ventricular response. 11. Bilateral effusion status postthoracentesis analysis pending Plan . Updated 09/30 Cultures on pleural fluid negative Follow-up in the office MARQUIS ARIZMENDI MD September 30, 2021 08:59
[2021-09-30] MEDS ORDERED: ERGOCALCIFEROL (VITAMIN D2) 50,000 UNIT CAPSULE. PO SCH (09:00)
--- NOTE | 2021-09-30 10:03 | PDOC ---
[employer] PROGRESS NOTE Date of Service DOS: DATE: 09/30/21 TIME: 10:01 Chief Complaint Chief Complaint Acute anemia Hypokalemia Bilateral pleural effusions CAD status post stent x4 - stable.Follows [facility] Hypothyroidism - on replacement HTN - Given age over 80 may be more liberal blood pressure parameters should be pursued 150/90 as threshold for tx and as needed midodrine on dialysis days ESRD on HD since December 2020 - dialysis per nephrology Hypokalemia - monitor, replace per nephrology Severe protein calorie malnutrition - likely related to ESRD status, nutrition Neck pain -concern for discitis FEN - Renal dialysis PPX - SCDs FULL CODE Dispo - inpatient History of Present Illness History of Present Illness PerformedMrJersey is an 86-year-old male with PMHx CAD status post stent x4, hypothyroidism, HTN, ESRD on HD since December 2020 who presents to the ED from dialysis confused and in AFIB RVR which was noted while having dialysis as well as hypotension. He is s/p left upper extremity AV graft thrombectomy and angioplasty on 09/22/21. EKG in ED begins irregular and then appears sinus rhythm within 6 seconds. WBC 15.6, Hb 6.7 with MCV 109, platelets 327, PTT greater than 150, INR 1.1, NA 138, K2.8, BUN 34, CR 3.9, glucose 160, albumin 0.9, high-sensitivity troponin was 235. Head CT with no acute abnormalities chest radiograph bilateral pleural effusions. 09/24: Tolerated dialysis today. A little less confused. Blood pressure low and still tachycardic being closely monitored on telemetry. Transfuse for Hb of 6.7 improved to 8.6. Still with large leukocytosis. 09/25: Hb 7.4, K2.9. Still with positive orthostatic systolic blood pressure in the 100s despite midodrine and Florinef. We will repeat a.m. cortisol replace potassium discussed with nephrology potassium adjustment. 09/26: WBC 13 today still has little bit of a cough now with some neck pain on extension and worse focal pain Nasif 5 6 and T1 interdisc spaces posteriorly. Will obtain CT cervical spine and thoracic spine and consult ID for persistent leukocytosis. Unfortunately patient was admitted on antibiotics without any cultures. 09/27: Chest radiograph looks worse per discussion with pulmonology. CT neck and chest and thorax for today with IV contrast per facility policy can only be administered on dialysis days. He still is having neck pain 09/28: Afebrile. CT cervical spine and thoracic spine showing compression fracture in T4, T5; no evidence of discitis in cervical or thoracic spine large bilateral pleural effusions have increased. Discussed with Dr. Zambrano, will perform thoracentesis tomorrow. Patient has worked with PT and recommended SNU. Continue midodrine and Florinef; outpatient ischemic evaluation. Continue HD, per nephrology. 09/29: Patient seen resting at bedside chair. Had thoracentesis yesterday with some improvement in his respirations. Discussed with pulmonology, he is stable to discharge back to his [place] long-term tomorrow. Continue HD, per nephrology. His IV Zosyn has been discontinued; CT cervical and thoracic spine with no evidence of discitis. Will place SNU orders for anticipated discharge tomorrow. 09/30: Patient seen heading to hemodialysis this morning. Nurse reports some low potassium and relayed this to his dialysis nurses, apparently this will be handled in dialysis today. He will discharged today to [place] long-term. Greater than 30 minutes spent managing the discharge of this patient. Vitals/I&O Vitals/I&O: Vital Signs Date Time Temp Pulse Resp B/P (MAP) Pulse Ox O2 Delivery O2 Flow Rate FiO2 09/30/21 08:18 119 71/45 09/30/21 02:26 98.0 16 96 Room Air 98.0 I & O 09/29/21 09/29/21 09/30/21 15:00 23:00 07:00 Intake Total 0 ml 300 ml Output Total 50 ml Balance -50 ml 300 ml Physical Exam Physical Exam: GENERAL: Alert, oriented gentleman, not in distress. VITAL SIGNS: Stable, afebrile. HEENT: NAD. NECK: Supple, no JVP, no lymphadenopathy. LUNGS: Clear. HEART: S1, S2, regular. ABDOMEN: Soft, nontender, no organomegaly. EXTREMITIES: Does have upper extremity edema. Lower extremity has mild pitting edema. Rest of the skin exam is unremarkable. Hemodialysis catheter is unremarkable. NEUROLOGIC: The patient is alert, awake and appropriate. No focal neurologic deficit. General: Alert, Cooperative, No acute distress Heart: Other (IRREGULAR AFIB) Lungs: Clear, Other (Diminished breath sounds in the bases) Abdomen: Normal bowel sounds Extremities: No clubbing Skin: No breakdown Labs Labs: Laboratory Tests Test 09/29/21 11:11 09/29/21 15:17 09/29/21 16:44 09/29/21 20:42 Glucose (Fingerstick) 89 mg/dL (70-99) 76 mg/dL (70-99) 116 mg/dL (70-99) SARS-CoV-2 Antigen (Rapid) Negative (NEGATIVE) Test 09/30/21 06:20 Sodium Level 140 mmol/L (136-145) Potassium Level 2.6 mmol/L (3.5-5.1) Chloride Level 103 mmol/L (98-107) Carbon Dioxide Level 27 mmol/L (21-32) Anion Gap 10 (6-14) Blood Urea Nitrogen 16 mg/dL (8-26) Creatinine 3.2 mg/dL (0.7-1.3) Estimated GFR (Cockcroft-Gault) 18.5 Glucose Level 77 mg/dL (70-99) Calcium Level 7.5 mg/dL (8.5-10.1) Assessment and Plan Assessmemt and Plan Problems Medical Problems: (1) Hypokalemia Status: Acute (2) Hypotension Status: Acute (3) Low hemoglobin Status: Acute Comment Review of Relevant I have reviewed the following items madonna (where applicable) has been applied. Justifications for Admission Other Justification KARIME GAUTAM MD September 30, 2021 10:03
[2021-09-30] MEDS ORDERED: POTASSIUM CHLORIDE 20 MEQ TABLET.ER. PO ONE (10:15)
--- NOTE | 2021-09-30 10:15 | PDOC3 ---
Discharge Summary Visit Information Date of Admission: September 23, 2021 Date of Discharge: September 30, 2021 Final Diagnosis Problems Medical Problems: (1) Hypokalemia Status: Acute (2) Hypotension Status: Acute (3) Low hemoglobin Status: Acute Brief Hospital Course Allergies Allergies Coded Allergies Type Severity Reaction Last Updated Verified No Known Drug Allergies 04/26/21 No Vital Signs Vital Signs Date Time Temp Pulse Resp B/P (MAP) Pulse Ox O2 Delivery O2 Flow Rate FiO2 09/30/21 08:18 119 71/45 09/30/21 02:26 98.0 16 96 Room Air 98.0 Lab Results Laboratory Tests Test 09/28/21 13:15 09/28/21 15:19 09/28/21 19:59 09/28/21 21:42 Body Fluid Source Pleural Body Fluid Color Yellow Body Fluid Clarity Clear Body Fluid pH 7.77 Body Fluid Nucleated Cells 30 /cmm (Not Established) Body Fluid Mononuclear WBCs (%) 13 % Body Fluid Polymorphonuclear Cells 22 % Body Fluid Total RBCs Counted 10 /cmm (Not Established) Body Fluid Other Cells (%) 65 % Glucose (Fingerstick) 55 mg/dL (70-99) 59 mg/dL (70-99) 84 mg/dL (70-99) Test 09/29/21 03:07 09/29/21 06:50 09/29/21 07:48 09/29/21 11:11 Glucose (Fingerstick) 70 mg/dL (70-99) 67 mg/dL (70-99) 89 mg/dL (70-99) Sodium Level 142 mmol/L (136-145) Potassium Level 3.2 mmol/L (3.5-5.1) Chloride Level 105 mmol/L (98-107) Carbon Dioxide Level 27 mmol/L (21-32) Anion Gap 10 (6-14) Blood Urea Nitrogen 13 mg/dL (8-26) Creatinine 2.5 mg/dL (0.7-1.3) Estimated GFR (Cockcroft-Gault) 24.6 Glucose Level 71 mg/dL (70-99) Calcium Level 7.8 mg/dL (8.5-10.1) Test 09/29/21 15:17 09/29/21 16:44 09/29/21 20:42 09/30/21 06:20 SARS-CoV-2 Antigen (Rapid) Negative (NEGATIVE) Glucose (Fingerstick) 76 mg/dL (70-99) 116 mg/dL (70-99) Sodium Level 140 mmol/L (136-145) Potassium Level 2.6 mmol/L (3.5-5.1) Chloride Level 103 mmol/L (98-107) Carbon Dioxide Level 27 mmol/L (21-32) Anion Gap 10 (6-14) Blood Urea Nitrogen 16 mg/dL (8-26) Creatinine 3.2 mg/dL (0.7-1.3) Estimated GFR (Cockcroft-Gault) 18.5 Glucose Level 77 mg/dL (70-99) Calcium Level 7.5 mg/dL (8.5-10.1) Laboratory Tests Test 09/29/21 11:11 09/29/21 15:17 09/29/21 16:44 09/29/21 20:42 Glucose (Fingerstick) 89 mg/dL (70-99) 76 mg/dL (70-99) 116 mg/dL (70-99) SARS-CoV-2 Antigen (Rapid) Negative (NEGATIVE) Test 09/30/21 06:20 Sodium Level 140 mmol/L (136-145) Potassium Level 2.6 mmol/L (3.5-5.1) Chloride Level 103 mmol/L (98-107) Carbon Dioxide Level 27 mmol/L (21-32) Anion Gap 10 (6-14) Blood Urea Nitrogen 16 mg/dL (8-26) Creatinine 3.2 mg/dL (0.7-1.3) Estimated GFR (Cockcroft-Gault) 18.5 Glucose Level 77 mg/dL (70-99) Calcium Level 7.5 mg/dL (8.5-10.1) Brief Hospital Course Mr. Lee is a 86 old man who presented with A. fib with RVR in the setting of hypokalemia, severe anemia. Consultation was placed to cardiology. No strips available to review from dialysis center, and presented back in sinus rhythm with no prior history of A. fib. His potassium was replaced. Hemoglobin was 6.7 on admission, he was transfused per protocol. Consult was placed to nephrology to continue his regular hemodialysis and to offload fluid. Patient was monitored on telemetry and his home midodrine and Florinef was continued. Cardiology recommended outpatient ischemic evaluation and [facility]OT to ascertain A. fib burden. Chest x-ray compatible with pulmonary edema and bilateral pleural effusions. Consultation placed to pulmonology, and patient had a thoracentesis with removal of ~3 L fluid. Due to concerns for leukocytosis and possible discitis consultation was placed to ID. CT cervical and thoracic spine showed no evidence of aggressive osseous erosive process to suggest discitis osteomyelitis in the cervical or thoracic spine. Patient worked with PT and was recommended SNU. Once stable he was transferred back to his [place] residential. Discharge Information Disposition/Orders: D/C to Another Facility Scheduled Cholecalciferol (Vitamin D3) (Vitamin D3) 125 Mcg Tablet, 1,250 MCG PO QFR for supplement, (Reported) Take at 0700 Entered as Reported by: KAPIL MATTSON on 04/25/21807 Last Action: Converted on 09/24/21931 by ROSALIO SPRINGER MD Ezetimibe (Zetia) 10 Mg Tablet, 10 MG PO DAILY for TREAT HYPERLIPIDEMIA, (Reported) Entered as Reported by: KAPIL MATTSON on 01/20/191119 Last Action: Reviewed on 09/23/211650 by JEFE SHARP RN Fludrocortisone Acetate (Fludrocortisone Acetate) 0.1 Mg Tablet, 0.2 MG PO DAILY for Orthostatic Hypotension, (Reported) Entered as Reported by: MOISES NUNO on 09/22/21726 Last Action: Continued on 09/24/21931 by ROSALIO SPRINGER MD Folic Acid/Vit Bcomp,C (Renal Vitamin Tablet) 0.8 Mg Tablet, 0.8 MG PO DAILY for renal health, (Reported) Entered as Reported by: KAPIL MATTSON on 04/25/21807 Last Action: Continued on 09/24/21931 by ROSALIO SPRINGER MD Levothyroxine Sodium (Synthroid) 75 Mcg Tablet, 88 MCG PO DAILYAC for THYROID SUPPLEMENT, #30 Ref 0 (Reported) Entered as Reported by: KAPIL MATTSON on 01/20/191119 Last Action: Continued on 09/24/21931 by ROSALIO SPRINGER MD Midodrine Hcl (Midodrine Hcl) 5 Mg Tablet, 5 MG PO TID for Hypotension, (Reported) Entered as Reported by: MOISES NUNO on 09/22/21726 Last Action: Continued on 09/24/21931 by ROSALIO SPRINGER MD Ranolazine (Ranexa) 500 Mg Tab.er.12h, 500 MG PO BID for TO TREAT ANGINA, (Reported) Entered as Reported by: KAPIL MATTSON on 01/20/191119 Last Action: Continued on 09/24/21931 by ROSALIO SPRINGER MD Rosuvastatin Calcium (Crestor) 40 Mg Tablet, 40 MG PO HS for FOR CHOLESTEROL, #30 Ref 0 (Reported) Entered as Reported by: KAPIL MATTSON on 01/20/191119 Last Action: Converted on 09/24/21931 by ROSALIO SPRINGER MD Sennosides/Docusate Sodium (Senna-Docusate Sodium Tablet) 1 Each Tablet, 2 TAB PO BID for Constipation for 20 Days, #80 Ref 0 (Reported) Entered as Reported by: MOISES NUNO on 09/22/21726 Last Action: Continued on 09/24/21931 by ROSALIO SPRINGER MD Scheduled PRN Acetaminophen (Acetaminophen) 325 Mg Tablet, 650 MG PO PRN Q6HRS PRN for MILD PAIN 1-3, (Reported) Entered as Reported by: MOISES NUNO on 09/22/21726 Last Action: Reviewed on 09/23/211650 by JEFE SHARP RN Diclofenac Sodium (Arthritis Pain) 100 Gm Gel..gram., 2 GM TP PRN QID PRN for PAIN, (Reported) Entered as Reported by: MOISES NUNO on 09/22/21726 Last Action: Continued on 09/24/21931 by ROSALIO SPRINGER MD Polyethylene Glycol 3350 (Polyethylene Glycol 3350) 17 Gm Powd.pack, 17 GM PO PRN DAILY PRN for CONSTIPATION, (Reported) Entered as Reported by: MOISES NUNO on 09/22/21726 Last Action: Continued on 09/24/21931 by ROSALIO SPRINGER MD Tramadol Hcl (Tramadol Hcl) 50 Mg Tablet, 25 MG PO PRN Q12HR PRN for PAIN, Ref 0 (Reported) Entered as Reported by: MOISES NUNO on 5/12/22 0727 Last Action: Reviewed on 09/23/211650 by JEFE SHARP RN Discontinued Medications Aspirin (Aspirin) 81 Mg Tab.chew, 81 MG PO DAILY for BLOOD THINNER, (Reported) Entered as Reported by: KAPIL MATTSON on 01/20/19 1120 Last Action: Discontinued on 09/23/211650 by JEFE SHARP RN Justicifation of Admission Dx: Justifications for Admission: Justification of Admission Dx: N/A KARIME GAUTAM MD September 30, 2021 10:15
--- NOTE | 2021-09-30 11:01 | NUR ---
Attempt[facility] to call [facility], they took number & is supposed to call back.
--- NOTE | 2021-09-30 11:18 | PDOC ---
Renal-Progress Notes Subjective Notes Notes NO NEW COMPLAINTS History of Present Illness Hx of present illness STABLE Vitals Vitals Vital Signs Date Time Temp Pulse Resp B/P (MAP) Pulse Ox O2 Delivery O2 Flow Rate FiO2 09/30/21 08:18 119 71/45 09/30/21 08:00 Room Air 09/30/21 02:26 98.0 16 96 98.0 Weight Weight [ ] I.O. Intake and Output Intake and Output 09/30/21 07:00 Intake Total 300 ml Output Total 50 ml Balance 250 ml Intake Oral 300 ml Output Urine Total 50 ml # Bowel Movements 1 Labs Labs Laboratory Tests Test 09/29/21 15:17 09/29/21 16:44 09/29/21 20:42 09/30/21 06:20 SARS-CoV-2 Antigen (Rapid) Negative (NEGATIVE) Glucose (Fingerstick) 76 mg/dL (70-99) 116 mg/dL (70-99) Sodium Level 140 mmol/L (136-145) Potassium Level 2.6 mmol/L (3.5-5.1) Chloride Level 103 mmol/L (98-107) Carbon Dioxide Level 27 mmol/L (21-32) Anion Gap 10 (6-14) Blood Urea Nitrogen 16 mg/dL (8-26) Creatinine 3.2 mg/dL (0.7-1.3) Estimated GFR (Cockcroft-Gault) 18.5 Glucose Level 77 mg/dL (70-99) Calcium Level 7.5 mg/dL (8.5-10.1) Micro Micro Microbiology 09/28/21 Gram Stain - Final, Resulted 09/28/21 Aerobic and Anaerobic Culture - Preliminary, Resulted 09/26/21 Blood Culture - Preliminary, Resulted NO GROWTH AFTER 3 DAYS Review of Systems Constitutional: yes: alert, oriented Ears/Nose/Throat: Yes: no symptom reported Eyes: Yes: no symptom reported Pulmonary: Yes no symptom reported Cardiovascular: Yes no symptom reported Gastrointestional: Yes: no symptom reported Genitourinary: Yes: no symptom reported Musculoskeletal: Yes: no symptom reported Skin: Yes no symptom reported Psychiatric/Neurological: Yes: no symptom reported Physical Exam General Appearance: no apparent distress Skin: warm Respiratory: bilateral CTA Heart: S1S2 Abdomen: soft, bowel sounds present Genitourinary: bladder flat Extremities: pulses present, atrophy Neurology: alert, oriented, follow commands Musculoskeletal: Osteoarthritis Assessment Assessment IMP ESRD-MWF S/P L ARM AV ACCESS REVISION AND RIGHT IJ TDC PLACEMENT ANEMIA AFIB RVR HYPOTENSION-RESOLVED HYPOKALEMIA LEUCOCYTOSIS HX CAD PLAN BOO HD TODAY REPLACE K ANTIBIOTICS LEFT ARM AV ACCESS WHEN READY USE RIGHT IJ TDC FOR NOW CARDIOLOGY EVALUATION WILL FOLLOW ENRRIQUE BENNETT MD September 30, 2021 11:18
[2021-09-30] MEDS: EPOETIN ALFA 20,000 UNIT/ML VIAL for DIALYSIS PTS. SQ SCH (11:42)
[2021-09-30] MEDS ORDERED: POTASSIUM CHLORIDE 20 MEQ TABLET.ER. PO SCH (12:00)
[2021-09-30] MEDS: SENNOSIDES/DOCUSATE 8.6/50MG TABLET. PO SCH (12:10)
[2021-09-30] MEDS: FOLIC/VIT B COMP W-C (RENAL) TABLET. PO SCH (12:10)
[2021-09-30] MEDS: FLUDROCORTISONE 0.1 MG TABLET PO SCH (12:11)
[2021-09-30] MEDS: LACTOBACILLUS RHAMNOSUS GG 1 CAPSULE. PO SCH (12:11)
--- NOTE | 2021-09-30 12:50 | NUR ---
Discharge Note: [facility] [address] [place] [address] Discharge instructions and discharge home medications reviewed with Other facility and a copy given. All questions have been answered and understanding verbalized. The following instructions and handouts were given: discharge instructions, med list, follow ups Discontinued lines and drains: Peripheral IV intact. Patient discharged to Rehab Facility with medicoach via Wheelchair at 1250. Report given to DASHAWN Santos at [facility].
--- NOTE | 2021-09-30 17:10 | PATHOLOGY ---
Note [facility] Accession Number: [id number] TESTS RESULT FLAG UNITS REF RANGE LAB Clinician Provided Cytology Information No. of containers..01 Other (Miscellaneous) Source: LEFT PLEURAL FLUID DIAGNOSIS: LEFT PLEURAL FLUID NEGATIVE FOR MALIGNANT CELLS. FEW REACTIVE MESOTHELIAL CELLS ARE PRESENT. THIS EVALUATION INCLUDES EXAMINATION OF A CELL BLOCK. Signed out by: 02 Claudio Bo MD, Pathologist NPI- [id number] Performed by: Janice Lynn, Director Of Field Sales ([facility]) Gross description: 01 30ML, YELLOW, CLEAR /LCS 09/30/2021 0748 Local FLAG LEGEND: L-Low Normal,H-High Normal,LL-Alert Low,HH-Alert High <-Panic Low,>-Panic High,A-Abnormal,AA-Critical Abnormal Performed at: [facility] [address] [place] [address] Tano Drake MD, [address] [facility] [address] [place] [address] Claudio Bo MD, Performed at: [address], [place] [id number] MD Tano Drake MD Phone: [phone]
== END 2021-09-30 12:50 | DRG 308 ==
LOC: ER 10:50 → 6 SOUTH 13:04
PROVIDERS: ADMIT Internal Medicine; ATTEND Internal Medicine
PROC: 30233N1 Transfusion of Nonautologous Red Blood Cells into Peripheral Vein, Percutaneous Approach (ICD-10-PCS; principal; 2021-09-23)
PROC: 5A1D70Z Performance of Urinary Filtration, Intermittent, Less than 6 Hours Per Day (ICD-10-PCS; 2021-09-24)
PROC: 5A1D70Z Performance of Urinary Filtration, Intermittent, Less than 6 Hours Per Day (ICD-10-PCS; 2021-09-26)
PROC: 5A1D70Z Performance of Urinary Filtration, Intermittent, Less than 6 Hours Per Day (ICD-10-PCS; 2021-09-28)
PROC: 0W9B3ZZ Drainage of Left Pleural Cavity, Percutaneous Approach (ICD-10-PCS; 2021-09-29)
PROC: 0W993ZZ Drainage of Right Pleural Cavity, Percutaneous Approach (ICD-10-PCS; 2021-09-29)
PROC: 5A1D70Z Performance of Urinary Filtration, Intermittent, Less than 6 Hours Per Day (ICD-10-PCS; 2021-09-30)
DX: I48.91 Unspecified atrial fibrillation (principal); E43 Unspecified severe protein-calorie malnutrition; N18.6 End stage renal disease; I12.0 Hypertensive chronic kidney disease with stage 5 chronic kidney disease or end stage renal disease; S22.049A Unspecified fracture of fourth thoracic vertebra, initial encounter for closed fracture; D62 Acute posthemorrhagic anemia; D68.9 Coagulation defect, unspecified; J81.1 Chronic pulmonary edema; J90 Pleural effusion, not elsewhere classified; J98.11 Atelectasis; D53.9 Nutritional anemia, unspecified; D72.829 Elevated white blood cell count, unspecified; E03.9 Hypothyroidism, unspecified; E11.22 Type 2 diabetes mellitus with diabetic chronic kidney disease; E78.5 Hyperlipidemia, unspecified; E87.6 Hypokalemia; I25.119 Atherosclerotic heart disease of native coronary artery with unspecified angina pectoris; I95.1 Orthostatic hypotension; I95.3 Hypotension of hemodialysis; K59.00 Constipation, unspecified; M19.90 Unspecified osteoarthritis, unspecified site; M53.3 Sacrococcygeal disorders, not elsewhere classified; Z79.82 Long term (current) use of aspirin; Z79.890 Hormone replacement therapy; Z82.49 Family history of ischemic heart disease and other diseases of the circulatory system; Z83.3 Family history of diabetes mellitus; Z87.891 Personal history of nicotine dependence; Z95.5 Presence of coronary angioplasty implant and graft; Z96.652 Presence of left artificial knee joint; Z99.2 Dependence on renal dialysis; Z68.20 Body mass index [BMI] 20.0-20.9, adult
CPT/HCPCS: 32555; 36415; 36430; 70450; 71045; 71260; 72126; 74177; 76937; 80048; 80053; 80069; 82533; 82962; 83540; 83550; 83735; 83986; 84145; 84484; 85007; 85025; 85027; 85347; 85610; 85651; 85730; 86140; 86850; 86900; 86901; 86920; 87040; 87075; 87116; 87426; 89050; 93005; 96365; 96366; 96367; J1756; J2543; J3480; P9016; P9046; Q9967; U0003; 97530-GO; 97535-GO; 99285-25; G0378; Q4081